=== PATIENT | male | born 1975 | race American Indian/Alaskan Native ===

== ENCOUNTER 2017-09-09 00:54 | Emergency (ER) | payer SELFPAY ==
--- NOTE | 2017-09-09 01:39 | Emergency Department Report ---
HPI - General Chief Complaint: Psych Time Seen by Provider: 09/09/17 01:14 - HPI HPI: 42-year-old male presents to the emergency department from his home via police after the patient started making some suicidal threats, and front of his , including holding a kitchen knife up to his throat. The patient says that he is depressed regarding the of his son which occurred about 5 years ago from a car accident. His son's birthday was a few days ago and every year on his birthday he seems to get depressed. He says that he was trying to find someone to reach out to but was unable to find a way to discuss his feelings and/or brief. He attempted to phone his mother but she did not answer. He says that his and he are having some issues and he couldn't talk about that with her. He does admit to drinking alcohol this evening. Everything boiled up and he pulled out a kitchen knife and held it to his throat stating that he wanted to be with his son. The called 911 and the patient was brought in by police. The patient denies any hallucinations or homicidal ideations. He denies any illicit drug use. He has a past medical history of hypertension. He denies any diagnosed psychiatric conditions. ED Past Medical Hx - Past Medical History Previous Medical History?: No - Surgical History Past Surgical History?: No - Social History Smoking Status: Never Smoker Substance Use Type: Alcohol - Medications Home Medications: Home Medications Medication Instructions Recorded Confirmed Last Taken Type amLODIPine [Norvasc] 10 mg PO DAILY 09/09/17 09/09/17 09/08/17 History ED Review of Systems ROS: Stated complaint: 1013 Other details as noted in HPI Comment: All other systems reviewed and negative Constitutional: denies: chills, fever Eyes: denies: eye pain, eye discharge, vision change ENT: denies: ear pain, throat pain Respiratory: denies: cough, shortness of breath, wheezing Cardiovascular: denies: chest pain, palpitations Gastrointestinal: denies: abdominal pain, nausea, diarrhea Genitourinary: denies: urgency, dysuria Musculoskeletal: denies: back pain, joint swelling, arthralgia Skin: denies: rash, lesions Neurological: denies: headache, weakness, paresthesias Psychiatric: depression, suicidal thoughts. denies: auditory hallucinations, visual hallucinations, homicidal thoughts Physical Exam - Physical Exam Vital Signs: Vital Signs 09/09/17 01:21 Temperature 98.2 F Pulse Rate 98 H Respiratory 18 Rate Blood Pressure 142/98 [Left] O2 Sat by Pulse 98 Oximetry Physical Exam: GENERAL: The patient is well-developed well-nourished. HENT: Normocephalic. Atraumatic. Patient has moist mucous membranes. EYES: Extraocular motions are intact. Pupils equal reactive to light bilaterally. NECK: Supple. Trachea is midline. CHEST/LUNGS: Clear to auscultation. There is no respiratory distress noted. HEART/CARDIOVASCULAR: Regular. There is no tachycardia. There is no murmur. ABDOMEN: Abdomen is soft, nontender. Patient has normal bowel sounds. There is no abdominal distention. SKIN: Skin is warm and dry. NEURO: The patient is awake, alert, and oriented. The patient is cooperative. The patient has no focal neurologic deficits. The patient has normal speech. MUSCULOSKELETAL: There is no tenderness or deformity. There is no limitation range of motion. There is no evidence of acute injury. ED Course Vital Signs 09/09/17 01:21 Temperature 98.2 F Pulse Rate 98 H Respiratory 18 Rate Blood Pressure 142/98 [Left] O2 Sat by Pulse 98 Oximetry ED Medical Decision Making - Lab Data Result diagrams: 09/09/17 01:46 09/09/17 01:46 - Medical Decision Making Patient presented via police after he made suicidal gestures in front of his and held a knife to his throat. The patient admits to some depression surrounding the previous of his firstborn son around the anniversary of the son's birthday. Currently the patient is just saying that he did it as a cry for help and he is just looking for someone to talk to. However secondary to this suicidal gesture, the patient has been made a 1013. The patient admits to some alcohol use and his alcohol level is 0.19 at about 1:30 AM this morning. He does not act currently as if he is acutely intoxicated. His blood alcohol level should be down below the legal limit by about 8 AM and at that time I would consider him medically cleared for psychiatric placement. Pressors labs are unremarkable. Vital signs stable. - Differential Diagnosis depression, bipolar disorder, substance abuse Critical Care Time: No Critical care attestation.: If time is entered above; I have spent that time in minutes in the direct care of this critically ill patient, excluding procedure time. ED Disposition Clinical Impression: Suicidal ideations Depression Qualifiers: Depression Type: unspecified Qualified Code(s): F32.9 - Major depressive disorder, single episode, unspecified Alcohol intoxication Qualifiers: Complication of substance-induced condition: uncomplicated Qualified Code(s): F10.920 - Alcohol use, unspecified with intoxication, uncomplicated Disposition: [id number]/[id number] PSY HOSP/PSY UNIT Is pt being admited?: No Condition: Stable Time of Disposition: 02:51
[2017-09-09 01:52] LABS: Bilirubin,Urine NEG (Negative); Blood,Urine NEG (Negative); Color,Urine Yellow (Yellow); Hyaline Casts,Urine 4 /LPF; Mucus,Urine FEW /HPF; Protein,Urine <15 mg/dL mg/dL (Negative); WBC,Urine < 1.0 /HPF (0.0-6.0)
[2017-09-09 01:58] LABS: Amphetamine Screen,Urine PRESUMPTIVE NEGATIVE; Benzodiazepines Screen,Urine PRESUMPTIVE NEGATIVE; Cannabinoid Screen,Urine PRESUMPTIVE NEGATIVE; Cocaine Screen,Urine PRESUMPTIVE NEGATIVE; Methadone Screen,Urine PRESUMPTIVE NEGATIVE; Opiate Screen,Urine PRESUMPTIVE NEGATIVE
[2017-09-09 02:00] LABS: Basophils # (Auto) 0.1 K/mm3 (0.0-0.1); Basophils % (Auto) 0.8 % (0.0-1.8); Eosinophils # (Auto) 0.9 K/mm3 (0.0-0.4); Eosinophils % (Auto) 13.9 % (0.0-4.3); Hematocrit 38.3 % (35.5-45.6); Hemoglobin 12.6 gm/dl (11.8-15.2); Lymphocytes # (Auto) 1.7 K/mm3 (1.2-5.4); Lymphocytes % (Auto) 25.1 % (13.4-35.0); Mean Corpuscular HGB Conc 33 % (32-34); Mean Corpuscular Hemoglobin 29 pg (28-32); Mean Corpuscular Volume 89 fl (84-94); Monocytes # (Auto) 0.6 K/mm3 (0.0-0.8); Monocytes % (Auto) 8.7 % (0.0-7.3); Platelet Count 317 K/mm3 (140-440)
[2017-09-09 02:08] LABS: BUN/Creatinine Ratio 13; Blood Urea Nitrogen 13 mg/dL (9-20); Calcium 9.2 mg/dL (8.4-10.2); Hemolysis Index 4
[2017-09-09] MEDS ORDERED: DUONEB *Not for PRN Use IH ONE ×2 (23:34→23:36)
[2017-09-10] MEDS: NORVASC PO SCH (10:33)
--- NOTE | 2017-09-10 13:54 | Consultation ---
History of Present Illness - Reason for Consult Consult date: 09/10/17 Reason for consult: Mental Health Evaluation Requesting physician: MELANI YEE - Chief Complaint Chief complaint: "I am not suicidal" - History of Present Psychiatric Illness 42-year-old male presents to the emergency department from his home via police after making suicidal threat in front of his . Today the patient is calm and cooperative during the assessment. He stated that he put a knife to his throat prior to his admission to the hospital because he was angry. He stated that he gets "sad and withdrawn" before the anniversary of his son . Per the patient, his son 5 yrs ago. He stated since the of his son, it's getting more difficult to handle. He stated that he want to see a therapist and take medication to help him with his mood. He stated that he wasn't suicidal on admission, but felt like he had to say that to get help. Also, he stated that he don't drink alcohol to get intoxicated as he was on admission. He denies SI/HI's and AVH's. He denies erratic sleep or a poor appetite. He denies recreational drugs use. Medications and Allergies Allergies Allergy/AdvReac Type Severity Reaction Status Date / Time shellfish derived Allergy Swelling Verified 09/09/17 01:16 strawberry Allergy Swelling Verified 09/09/17 01:16 Home Medications Medication Instructions Recorded Confirmed Last Taken Type Albuterol Sulfate [Albuterol 0.63% 0.63 mg IH TID PRN 09/09/17 09/09/17 Unknown History NEBS] Budesonide/Formoterol Fumarate 10.2 gm IH DAILY 09/09/17 09/09/17 Unknown History [Symbicort 160-4.5 Mcg Inhaler] amLODIPine [Norvasc] 10 mg PO DAILY 09/09/17 09/09/17 09/08/17 History Active Meds: Active Medications Amlodipine Besylate (Norvasc) 10 mg PO DAILY DANIELLE Last Admin: 09/10/17 10:33 Dose: 10 mg Past psychiatric history - Past Medical History Past Medical History: No medical history Past Surgical History: No surgical history - past Psychiatric treatment and history psychiatric treatment history: Denies a psy hx and a fam psy hx. - Social History Social history: lives with family Mental Status Exam - Vital signs Last Vital Signs Temp 97.8 F 09/10/17 11:22 Pulse 84 09/10/17 11:22 Resp 16 09/10/17 11:24 BP 142/93 09/10/17 11:22 Pulse Ox 98 09/10/17 11:24 - Exam Narrative exam: MSE: Appearance: calm, cooperative Behavior: regular eye contact Speech: regular rate and tone Mood: "okay" Affect: congruent to mood Thought Process: circumstantial Thought Content: denies SI/HI's and AVH's Motor Activity: sitting up in bed Cognition: A/O x 3 Insight: fair Judgment: variable Results Result Diagrams: 09/09/17 01:46 09/09/17 01:46 All other labs normal. Assessment and Plan Assessment and plan: Impression: MDD. SAD. Alcohol Intoxication on admission. Complicated grieving. Today the patient is calm and cooperative during the assessment. DDx: R/O Alcohol Use DO Recommendation/Plan: Continue 1013 and gather collateral information to help determine proper dispo in 24 hours. Start Zoloft 25 mg PO daily for depression/ SAD. Discussed possible suicidality/medication induced leodan with patient reference Zoloft. Also, discussed therapy for SAD with patient.
[2017-09-10] MEDS ORDERED: NON-FORMULARY (Albuterol Sulfate [Albuterol 0.63% Nebs] 0.63 MG) IH PRN (16:19)
[2017-09-10] MEDS ORDERED: NACL 0.9% NEBU ONE (16:36)
[2017-09-10] MEDS: PROVENTIL IH PRN ×2 (22:15→23:30)
[2017-09-10] MEDS: ZOLOFT PO SCH (22:55)
[2017-09-11] MEDS: PROVENTIL IH PRN ×2 (01:45→07:37)
[2017-09-11] MEDS: ZOLOFT PO SCH (09:57)
[2017-09-11] MEDS: NORVASC PO SCH (09:57)
--- NOTE | 2017-09-11 11:16 | Progress Note ---
Subjective - Reason for Consult Consult date: 09/11/17 Reason for consult: Psychiatry Follow-up - Chief Complaint Chief complaint: "I made a terrible decision" 42-year-old male presents to the emergency department from his home via police after making suicidal threat in front of his . Today the patient is calm and cooperative during the assessment. He stated that his actions prior to being brought to the ER wasn't good. He is adamant that he will not put himself in an unsafe situation again. Per collateral information from his Ora Mariscal at [phone], she stated that this was the first time her has ever threatened to harm himself. She stated that he does "get down on himself" prior to the anniversary of their son's . She stated that he was seeing a "professional" in the past to help him with coping skills. She stated that she will be his support system and they will attend therapy sessions together. She stated that she feel safe for her to return home when discharge. The patient denies SI/HI's and AVH's. He denies any side effects of his medication. Mental Status Exam - Vital signs Last Vital Signs Temp 97.5 F L 09/11/17 09:56 Pulse 80 09/11/17 09:56 Resp 16 09/11/17 09:56 BP 136/101 09/11/17 09:56 Pulse Ox 97 09/11/17 09:56 - Exam Narrative exam: MSE: Appearance: calm, cooperative Behavior: regular eye contact Speech: regular rate and tone Mood: "okay" Affect: congruent to mood Thought Process: linear Thought Content: denies SI/HI's and AVH's Motor Activity: sitting up in bed Cognition: A/O x 3 Insight: appropriate Judgment: appropriate Assessment and Plan Impression: MDD. SAD. Alcohol Intoxication on admission. Complicated grieving. Today the patient is calm and cooperative during the assessment. The patient is no threat to self. DDx: R/O Alcohol Use DO Recommendation/Plan: Rescind 1013. Continue Zoloft 25 mg PO daily for depression /SAD. Discussed possible suicidality/medication induced leodan with patient reference Zoloft. Also, discussed therapy for SAD with patient. Discussed the importance to abstain from alcohol consumption (etoh). Discussed generalized coping skills with the patient. The patient can follow up with [facility] for outpatient psy services.
[2017-09-11 13:28] VITALS: BP 115/75
--- NOTE | 2017-09-11 15:29 | Emergency Department Report ---
Blank Doc - Documentation Documentation: is a 42-year-old gentleman who on the anniversary of his son's does exhibit depressive symptoms. Several days ago patient was seen here for suicidal ideations. Patient's been started on Zoloft by this is psychiatry and patient is no longer exhibiting any suicidal or homicidal ideations. The patient does have a good support system and has an outpatient therapy plan. Patient's contract for safety. 1013 has been rescinded by me at 1530 on 2017. Patient will be discharged home.
== END 2017-09-11 19:19 | disposition home or self-care (01) ==
LOC: ED 00:54 → EEVIPCON 00:54 → ED 09-11 19:19
DX: F32.9 Major depressive disorder, single episode, unspecified (principal); F10.920 Alcohol use, unspecified with intoxication, uncomplicated; Z91.013 Allergy to seafood; Z91.018 Allergy to other foods
CPT/HCPCS: 36415; 80048; 80307; 81001; 85025; 94640; 99284; G0480; 80320

== ENCOUNTER 2018-04-16 08:37 | Emergency (ER) | payer OTHER ==
[2018-04-16] MEDS ORDERED: SUBLIMAZE ONE (09:23)
[2018-04-16] MEDS ORDERED: SUBLIMAZE IV ONE ×2 (09:23→09:46)
[2018-04-16] MEDS ORDERED: DIPRIVAN 10 MG/ML IV ONE (09:46)
--- NOTE | 2018-04-16 09:59 | XRay Report ---
RIGHT SHOULDER, 3 VIEWS: HISTORY: Pain after injury, fall. An anterior, inferior dislocation is identified at the right glenohumeral joint. There are also multiple small bony fragments which appear to arise from the lateral humeral head. Fracture of the glenoid is difficult to exclude on this exam as well. Normal articulation of the a.c. joint. Soft tissue swelling is noted. IMPRESSION: Complex fracture dislocation of the right shoulder as described.
[2018-04-16] MEDS ORDERED: NACL 0.9% 1000 ML 1,000 ML ONE (10:06)
[2018-04-16] MEDS ORDERED: NACL 0.9% 1000 ML 1,000 ML IV ONE (10:08)
--- NOTE | 2018-04-16 10:22 | XRay Report ---
AP AND LATERAL CERVICAL SPINE: History: Neck pain. The vertebral bodies are well mineralized and normal in alignment and vertebral height with well preserved interspace distances. The visualized portions of the posterior elements are normal. IMPRESSION: Cervical spine within normal limits.
--- NOTE | 2018-04-16 11:00 | XRay Report ---
AP CHEST: HISTORY: chest pain AP view of the chest demonstrates a normal mediastinal and cardiac contour with clear lungs and normal bony and soft tissue structures. IMPRESSION: Unremarkable AP chest.
--- NOTE | 2018-04-16 11:01 | XRay Report ---
LEFT SHOULDER, ONE VIEW History: Postreduction film. Findings: The dislocation at the right shoulder has been reduced since earlier today at 0921 hours. There are small bony fragments lateral to the humeral head and inferior to the glenoid. Chip fractures from the lateral humeral head neck region and inferior glenoid are suspected. Consider further evaluation with CT as needed. Impression: Successful reduction of the right shoulder dislocation. Fractures of the lateral humeral head and inferior glenoid are suspected.
--- NOTE | 2018-04-16 14:20 | Emergency Department Report ---
ED Fall HPI - General Chief Complaint: Extremity Injury, Upper Stated Complaint: RT DISLOCATED SHOULDER Time Seen by Provider: 04/16/18 09:34 Source: patient Mode of arrival: Stretcher - History of Present Illness Initial Comments: This is a 43-year-old male who apparently fell down the stairs earlier this morning. Initially complained of right shoulder pain only. He has no apparent dislocation. Initially he denied any pain or additional injury. Later he complained of vague chest discomfort and neck discomfort. He admitted to drinking 324 ounce beers. MD Complaint: fall -: Gradual Fall From: down stairs (#) When Fall Occurred: 1 hour MOUNTER SAXOPHONES Fall Witnessed: yes, by bystander Place Fall Occurred: home Loss of Consciousness: none Prolonged Down Time?: no Symptoms Prior to Fall: none Location: other (right shoulder) Location - Extremities: Right: Shoulder Severity: severe Quality: aching Context: tripped/slipped, alcohol use Associated Symptoms: denies - Related Data Home Medications Medication Instructions Recorded Confirmed Last Taken Albuterol Sulfate [Albuterol 0.63% 0.63 mg IH TID PRN 09/09/17 09/09/17 Unknown NEBS] Budesonide/Formoterol Fumarate 10.2 gm IH DAILY 09/09/17 09/09/17 Unknown [Symbicort 160-4.5 Mcg Inhaler] amLODIPine [Norvasc] 10 mg PO DAILY 09/09/17 09/09/17 09/08/17 Previous Rx's Medication Instructions Recorded Last Taken Type Sertraline [Zoloft] 25 mg PO DAILY #30 tablet 09/11/17 Unknown Rx HYDROcodone/APAP 5-325 [Atlas 1 each PO Q4HR PRN #14 tablet 04/16/18 Unknown Rx 5/325] Allergies Allergy/AdvReac Type Severity Reaction Status Date / Time shellfish derived Allergy Swelling Verified 09/09/17 01:16 strawberry Allergy Swelling Verified 09/09/17 01:16 ED Review of Systems ROS: Stated complaint: RT DISLOCATED SHOULDER Other details as noted in HPI Constitutional: denies: chills, fever Eyes: denies: eye pain, eye discharge, vision change ENT: denies: ear pain, throat pain Respiratory: denies: cough, shortness of breath, wheezing Cardiovascular: denies: chest pain, palpitations Endocrine: no symptoms reported Gastrointestinal: denies: abdominal pain, nausea, diarrhea Genitourinary: denies: urgency, dysuria Musculoskeletal: as per HPI. denies: back pain, joint swelling, arthralgia Skin: denies: rash, lesions Neurological: denies: headache, weakness, paresthesias Psychiatric: denies: anxiety, depression Hematological/Lymphatic: denies: easy bleeding, easy bruising ED Past Medical Hx - Past Medical History Previous Medical History?: Yes Hx Hypertension: Yes Hx Asthma: Yes - Surgical History Past Surgical History?: Yes Additional Surgical History: Nasal surgery 02/2018. jaw surgery - Social History Smoking Status: Former Smoker Substance Use Type: Alcohol - Medications Home Medications: Home Medications Medication Instructions Recorded Confirmed Last Taken Type Albuterol Sulfate [Albuterol 0.63% 0.63 mg IH TID PRN 09/09/17 09/09/17 Unknown History NEBS] Budesonide/Formoterol Fumarate 10.2 gm IH DAILY 09/09/17 09/09/17 Unknown His tory [Symbicort 160-4.5 Mcg Inhaler] amLODIPine [Norvasc] 10 mg PO DAILY 09/09/17 09/09/17 09/08/17 History Sertraline [Zoloft] 25 mg PO DAILY #30 tablet 09/11/17 Unknown Rx HYDROcodone/APAP 5-325 [Atlas 1 each PO Q4HR PRN #14 tablet 04/16/18 Unknown Rx 5/325] ED Physical Exam - General Limitations: No Limitations General appearance: alert, in no apparent distress - Head Head exam: Present: atraumatic, normocephalic - Eye Eye exam: Present: normal appearance. Absent: scleral icterus - ENT ENT exam: Present: mucous membranes moist - Neck Neck exam: Present: normal inspection, other (placed in a rigid cervical collar). Absent: tenderness, meningismus - Respiratory Respiratory exam: Present: normal lung sounds bilaterally. Absent: respiratory distress - Cardiovascular Cardiovascular Exam: Present: regular rate, normal rhythm. Absent: systolic murmur, diastolic murmur, rubs, gallop - GI/Abdominal GI/Abdominal exam: Present: soft, normal bowel sounds. Absent: distended, tenderness, guarding, rebound, rigid - Rectal Rectal exam: Present: deferred - Extremities Exam Extremities exam: Present: other (parent inferior and anterior dislocation of the right humeral head with crepitus, neurovascular exam is intact) - Back Exam Back exam: Present: normal inspection - Neurological Exam Neurological exam: Present: alert, oriented X3, CN II-XII intact. Absent: motor sensory deficit - Psychiatric Psychiatric exam: Present: normal affect, normal mood - Skin Skin exam: Present: warm, dry, intact, normal color. Absent: rash ED Course Vital Signs 04/16/18 04/16/18 04/16/18 08:43 08:45 09:00 Pulse Rate 77 80 85 Pulse Rate [ Intra-Procedure ] Pulse Rate [ Post-Procedure] Pulse Rate [Pre -Procedure] Respiratory 22 14 19 Rate Respiratory Rate [Intra- Procedure] Respiratory Rate [Post- Procedure] Respiratory Rate [Pre- Procedure] Blood Pressure 161/107 155/113 155/113 Blood Pressure [Intra- Procedure] Blood Pressure [Post-Procedure ] Blood Pressure [Pre-Procedure] O2 Sat by Pulse 98 99 96 Oximetry O2 Sat by Pulse Oximetry [ Intra-Procedure ] O2 Sat by Pulse Oximetry [Post -Procedure] O2 Sat by Pulse Oximetry [Pre- Procedure] 04/16/18 04/16/18 04/16/18 09:15 09:24 09:30 Pulse Rate 89 82 Pulse Rate [ Intra-Procedure ] Pulse Rate [ Post-Procedure] Pulse Rate [Pre -Procedure] Respiratory 11 L 20 13 Rate Respiratory Rate [Intra- Procedure] Respiratory Rate [Post- Procedure] Respiratory Rate [Pre- Procedure] Blood Pressure 160/111 160/111 Blood Pressure [Intra- Procedure] Blood Pressure [Post-Procedure ] Blood Pressure [Pre-Procedure] O2 Sat by Pulse 98 98 Oximetry O2 Sat by Pulse Oximetry [ Intra-Procedure ] O2 Sat by Pulse Oximetry [Post -Procedure] O2 Sat by Pulse Oximetry [Pre- Procedure] 04/16/18 04/16/18 04/16/18 09:45 10:00 10:11 Pulse Rate 71 Pulse Rate [ Intra-Procedure ] Pulse Rate [ Post-Procedure] Pulse Rate [Pre 71 -Procedure] Respiratory 14 Rate Respiratory Rate [Intra- Procedure] Respiratory Rate [Post- Procedure] Respiratory 14 Rate [Pre- Procedure] Blood Pressure 150/105 153/109 Blood Pressure [Intra- Procedure] Blood Pressure [Post-Procedure ] Blood Pressure 150/105 [Pre-Procedure] O2 Sat by Pulse 95 Oximetry O2 Sat by Pulse Oximetry [ Intra-Procedure ] O2 Sat by Pulse Oximetry [Post -Procedure] O2 Sat by Pulse 95 Oximetry [Pre- Procedure] 04/16/18 04/16/18 04/16/18 10:12 10:16 10:20 Pulse Rate Pulse Rate [ 83 87 Intra-Procedure ] Pulse Rate [ 85 Post-Procedure] Pulse Rate [Pre -Procedure] Respiratory Rate Respiratory 13 13 Rate [Intra- Procedure] Respiratory 9 L Rate [Post- Procedure] Respiratory Rate [Pre- Procedure] Blood Pressure Blood Pressure 145/94 137/94 [Intra- Procedure] Blood Pressure 145/97 [Post-Procedure ] Blood Pressure [Pre-Procedure] O2 Sat by Pulse Oximetry O2 Sat by Pulse 99 99 Oximetry [ Intra-Procedure ] O2 Sat by Pulse 100 Oximetry [Post -Procedure] O2 Sat by Pulse Oximetry [Pre- Procedure] 04/16/18 04/16/18 04/16/18 10:30 10:45 11:00 Pulse Rate 74 Pulse Rate [ Intra-Procedure ] Pulse Rate [ Post-Procedure] Pulse Rate [Pre -Procedure] Respiratory 14 Rate Respiratory Rate [Intra- Procedure] Respiratory Rate [Post- Procedure] Respiratory Rate [Pre- Procedure] Blood Pressure 146/103 142/106 143/108 Blood Pressure [Intra- Procedure] Blood Pressure [Post-Procedure ] Blood Pressure [Pre-Procedure] O2 Sat by Pulse 100 100 Oximetry O2 Sat by Pulse Oximetry [ Intra-Procedure ] O2 Sat by Pulse Oximetry [Post -Procedure] O2 Sat by Pulse Oximetry [Pre- Procedure] 04/16/18 04/16/18 04/16/18 11:15 11:30 11:45 Pulse Rate 76 80 81 Pulse Rate [ Intra-Procedure ] Pulse Rate [ Post-Procedure] Pulse Rate [Pre -Procedure] Respiratory 14 13 13 Rate Respiratory Rate [Intra- Procedure] Respiratory Rate [Post- Procedure] Respiratory Rate [Pre- Procedure] Blood Pressure 131/89 124/87 123/83 Blood Pressure [Intra- Procedure] Blood Pressure [Post-Procedure ] Blood Pressure [Pre-Procedure] O2 Sat by Pulse 98 94 Oximetry O2 Sat by Pulse Oximetry [ Intra-Procedure ] O2 Sat by Pulse Oximetry [Post -Procedure] O2 Sat by Pulse Oximetry [Pre- Procedure] 04/16/18 04/16/18 04/16/18 12:00 12:15 12:30 Pulse Rate 78 85 80 Pulse Rate [ Intra-Procedure ] Pulse Rate [ Post-Procedure] Pulse Rate [Pre -Procedure] Respiratory 14 15 13 Rate Respiratory Rate [Intra- Procedure] Respiratory Rate [Post- Procedure] Respiratory Rate [Pre- Procedure] Blood Pressure 131/84 135/95 129/90 Blood Pressure [Intra- Procedure] Blood Pressure [Post-Procedure ] Blood Pressure [Pre-Procedure] O2 Sat by Pulse 95 94 Oximetry O2 Sat by Pulse Oximetry [ Intra-Procedure ] O2 Sat by Pulse Oximetry [Post -Procedure] O2 Sat by Pulse Oximetry [Pre- Procedure] 04/16/18 04/16/18 04/16/18 12:45 13:00 13:15 Pulse Rate 77 89 78 Pulse Rate [ Intra-Procedure ] Pulse Rate [ Post-Procedure] Pulse Rate [Pre -Procedure] Respiratory 14 14 14 Rate Respiratory Rate [Intra- Procedure] Respiratory Rate [Post- Procedure] Respiratory Rate [Pre- Procedure] Blood Pressure 120/85 137/97 145/90 Blood Pressure [Intra- Procedure] Blood Pressure [Post-Procedure ] Blood Pressure [Pre-Procedure] O2 Sat by Pulse 96 97 Oximetry O2 Sat by Pulse Oximetry [ Intra-Procedure ] O2 Sat by Pulse Oximetry [Post -Procedure] O2 Sat by Pulse Oximetry [Pre- Procedure] - Reevaluation(s) Reevaluation #1: She was given analgesia with fentanyl. He was given conscious sedation with p ropofol. His shoulder was successfully reduced. Distraction technique. His pulse oximetry and CO2 remained within normal limits. Procedure was well- tolerated. 04/16/18 14:20 - Moderate Sedation Indications: fracture/dislocation redu ASA Class: I Mallampati Airway Score: 2 Time of Last PO Intake: 02:00 Fentanyl: IV IV Propofol Dose (mgs): 60 (20+20+20) Complications: none Interventions: oxygen applied (prior to procedure) Patient Tolerated Procedure: well - Orthopedic Joint Reduction Joint #1 Consent Obtained: verbal consent Time Out Performed: No Side: right Joint Reduction Location: shoulder Analgesia: moderate sedation Shoulder Technique Used (if applicable): traction/counter-traction Technique Used: traction/counter-traction Post-Reduction Neuro Exam: intact Post-Reduction Vascular Exam: intact Post Reduction X-Ray Obtained: Yes Post Reduction X-Ray Results: reduced (fracture pre-and post reduction seen) Splint Applied: Yes (shoulder sling) Patient Tolerated Procedure: well ED Medical Decision Making - Lab Data Result diagrams: 04/16/18 14:19 04/16/18 14:19 Laboratory Results - last 24 hr 04/16/18 04/16/18 14:19 14:19 WBC 5.3 RBC 4.04 Hgb 11.7 L Hct 35.3 L MCV 87 MCH 29 MCHC 33 RDW 14.7 Plt Count 299 Lymph % (Auto) 36.9 H Hudson % (Auto) 6.9 Eos % (Auto) 1.9 Baso % (Auto) Rate Manager Lymph # 2.0 Baso # 0.1 Seg Neutrophils % 53.3 Seg Neutrophils # 2.8 Sodium 141 Potassium 3.8 Chloride 103.2 Carbon Dioxide 22 Anion Gap 20 BUN 7 L Creatinine 0.6 L Estimated GFR > 60 BUN/Creatinine Ratio 12 Glucose 92 Calcium 8.1 L Magnesium 2.00 Total Bilirubin 0.30 Direct Bilirubin < 0.2 AST 26 ALT 15 Alkaline Phosphatase 85 Total Protein 7.0 Albumin 4.1 Albumin/Globulin Ratio 1.4 - Radiology Data interpreted by me: An anterior, inferior dislocation is identified at the right glenohumeral joint. There are also multiple small bony fragments which appear to arise from the lateral humeral head. Fracture of the glenoid is difficult to exclude on this exam as well. Normal articulation of the a.c. joint. Soft tissue swelling is noted. The dislocation at the right shoulder has been reduced since earlier today at 0921 hours. There are small bony fragments lateral to the humeral head and inferior to the glenoid. Chip fractures from the lateral humeral head neck region and inferior glenoid are suspected. Consider further evaluation with CT as needed. Critical care attestation.: If time is entered above; I have spent that time in minutes in the direct care o f this critically ill patient, excluding procedure time. ED Disposition Clinical Impression: Fracture dislocation of right shoulder joint Qualifiers: Encounter type: initial encounter Fracture type: closed Qualified Code(s): S42.91XA - Fracture of right shoulder girdle, part unspecified, initial encounter for closed fracture Disposition: -01 TO HOME OR SELFCARE Is pt being admited?: No Does the pt Need Aspirin: No Condition: Stable Instructions: Shoulder Dislocation (ED), Scapular Fracture (ED) Additional Instructions: Rest shoulder splint. Do not drink alcohol with pain medicine. This can lead to additional injuries due to fall risk. Follow-up with orthopedist. Return any acute change or problem. Prescriptions: HYDROcodone/APAP 5-325 [Atlas 5/325] 1 each PO Q4HR PRN #14 tablet PRN Reason: Pain Referrals: YESIKA OBRIEN MD [Primary Care Provider] - 3-5 Days KAIN SANDERS MD [Staff Physician] - 2-3 Days Time of Disposition: 15:49
[2018-04-16 14:44] LABS: Basophils # (Auto) 0.1 K/mm3 (0.0-0.1); Eosinophils % (Auto) 1.9 % (0.0-4.3); Hematocrit 35.3 % (35.5-45.6); Hemoglobin 11.7 gm/dl (11.8-15.2); Lymphocytes % (Auto) 36.9 % (13.4-35.0); Mean Corpuscular HGB Conc 33 % (32-34); Mean Corpuscular Volume 87 fl (84-94); Monocytes % (Auto) 6.9 % (0.0-7.3); Platelet Count 299 K/mm3 (140-440); Red Blood Count 4.04 M/mm3 (3.65-5.03); Red Cell Distribution Width 14.7 % (13.2-15.2)
[2018-04-16 14:59] LABS: Alanine Aminotransferase 15 units/L (7-56); Albumin 4.1 g/dL (3.9-5); BUN/Creatinine Ratio 12; Blood Urea Nitrogen 7 mg/dL (9-20); Calcium 8.1 mg/dL (8.4-10.2); Hemolysis Index 11
[2018-04-16 15:00] LABS: Bilirubin,Direct < 0.2 mg/dL (0-0.2)
[2018-04-16 16:18] VITALS: BP 149/107
== END 2018-04-16 16:20 | disposition home or self-care (01) ==
LOC: ED 08:37
DX: S42.91XA Fracture of right shoulder girdle, part unspecified, initial encounter for closed fracture (principal); I10 Essential (primary) hypertension; J45.909 Unspecified asthma, uncomplicated; Z87.891 Personal history of nicotine dependence; Z91.013 Allergy to seafood; Z91.018 Allergy to other foods; W10.8XXA Fall (on) (from) other stairs and steps, initial encounter; Y93.89 Activity, other specified; Y92.098 Other place in other non-institutional residence as the place of occurrence of the external cause; Y99.8 Other external cause status
CPT/HCPCS: 23650; 36415; 71045; 72040; 73020; 73030; 80048; 80076; 83735; 85025; 96374; 99285; J2704; J3010; J7030

== ENCOUNTER 2018-11-13 21:14 | Inpatient (IN) | payer SELFPAY ==
[2018-11-13] MEDS ORDERED: ETOMIDATE 20 MG/10 ML INJ IV ONE (21:35)
[2018-11-13] MEDS ORDERED: ROCURONIUM 50 MG/5 ML INJ IV ONE (21:35)
[2018-11-13] MEDS ORDERED: CEFEPIME/NS 2 GM/100 ML 2 GM/100 ML BAG IV ONE (21:36)
--- NOTE | 2018-11-13 21:37 | Emergency Department Report ---
ED Shortness of Breath HPI - General Stated Complaint: GEORGINA Time Seen by Provider: 11/13/18 21:14 Source: patient, EMS Mode of arrival: Stretcher Limitations: No Limitations - History of Present Illness Initial Comments: Patient is a 43-year-old male that presents emergency room with complaints of shortness of breath and difficulty breathing. Patient is currently on EMS BiPAP. Patient has been given Medrol, albuterol 10, magnesium 2 g. Patient is still having significant work to breathe. Patient states his shortness of breath is not improving. Patient states that he is taken 10 nebulizer treatments and use 5 for albuterol inhalers today. Patient states he's had a cough for 5 days and is now worsening. Patient states nothing is working. Patient states his shortness of breath is worse with exertion and better with rest. MD Complaint: shortness of breath, cough Severity: severe Consistency: constant Improves With: rest Worsens With: exertion Known History Of: asthma Treatments Prior to Arrival: oxygen, bronchodilator, other - Related Data Home Medications Medication Instructions Recorded Confirmed Last Taken Albuterol Sulfate [Albuterol 0.63% 0.63 mg IH TID PRN 09/09/17 09/09/17 Unknown NEBS] Budesonide/Formoterol Fumarate 10.2 gm IH DAILY 09/09/17 09/09/17 Unknown [Symbicort 160-4.5 Mcg Inhaler] amLODIPine [Norvasc] 10 mg PO DAILY 09/09/17 09/09/17 09/08/17 Previous Rx's Medication Instructions Recorded Last Taken Type Sertraline [Zoloft] 25 mg PO DAILY #30 tablet 09/11/17 Unknown Rx HYDROcodone/APAP 5-325 [Salters 1 each PO Q4HR PRN #14 tablet 04/16/18 Unknown Rx 5/325] Allergies Allergy/AdvReac Type Severity Reaction Status Date / Time shellfish derived Allergy Swelling Verified 09/09/17 01:16 strawberry Allergy Swelling Verified 09/09/17 01:16 ED Review of Systems ROS: Stated complaint: GEORGINA Other details as noted in HPI Constitutional: denies: chills, fever Eyes: denies: eye pain, eye discharge, vision change ENT: denies: ear pain, throat pain Respiratory: cough, orthopnea, shortness of breath, SOB with exertion, SOB at rest, wheezing Cardiovascular: denies: chest pain, palpitations Endocrine: no symptoms reported Gastrointestinal: denies: abdominal pain, nausea, diarrhea Genitourinary: denies: urgency, dysuria Musculoskeletal: denies: back pain, joint swelling, arthralgia Skin: denies: rash, lesions Neurological: denies: headache, weakness, paresthesias Psychiatric: denies: anxiety, depression Hematological/Lymphatic: denies: easy bleeding, easy bruising ED Past Medical Hx - Past Medical History Previous Medical History?: Yes Hx Hypertension: Yes Hx Asthma: Yes - Surgical History Past Surgical History?: Yes Additional Surgical History: Nasal surgery 02/2018. jaw surgery - Family History Family history: no significant - Social History Smoking Status: Former Smoker Substance Use Type: Alcohol - Medications Home Medications: Home Medications Medication Instructions Recorded Confirmed Last Taken Type Albuterol Sulfate [Albuterol 0.63% 0.63 mg IH TID PRN 09/09/17 09/09/17 Unknown History NEBS] Budesonide/Formoterol Fumarate 10.2 gm IH DAILY 09/09/17 09/09/17 Unknown History [Symbicort 160-4.5 Mcg Inhaler] amLODIPine [Norvasc] 10 mg PO DAILY 09/09/17 09/09/17 09/08/17 History Sertraline [Zoloft] 25 mg PO DAILY #30 tablet 09/11/17 Unknown Rx HYDROcodone/APAP 5-325 [Salters 1 each PO Q4HR PRN #14 tablet 04/16/18 Unknown Rx 5/325] ED Physical Exam - General Limitations: No Limitations General appearance: alert, appears intoxicated, in distress - Head Head exam: Present: atraumatic, normocephalic - Eye Eye exam: Present: normal appearance, PERRL Pupils: Present: normal accommodation - ENT ENT exam: Present: mucous membranes dry - Neck Neck exam: Present: normal inspection - Respiratory Respiratory exam: Present: normal lung sounds bilaterally, respiratory distress, wheezes, rhonchi, chest wall tenderness, accessory muscle use, decreased breath sounds - Cardiovascular Cardiovascular Exam: Present: regular rate, normal rhythm. Absent: systolic murmur, diastolic murmur, rubs, gallop - GI/Abdominal GI/Abdominal exam: Present: soft, normal bowel sounds - Rectal Rectal exam: Present: deferred - Extremities Exam Extremities exam: Present: normal inspection - Back Exam Back exam: Present: normal inspection - Neurological Exam Neurological exam: Present: alert, oriented X3 - Skin Skin exam: Present: warm, dry, normal color, diaphoretic. Absent: rash ED Course Vital Signs 11/13/18 11/13/18 11/13/18 17:31 17:46 18:00 Temperature Pulse Rate Respiratory Rate Respiratory Rate [Anterior Bilateral Throughout] Blood Pressure 175/102 175/102 192/115 Blood Pressure [Right] O2 Sat by Pulse 99 100 100 Oximetry 11/13/18 11/13/18 11/13/18 18:16 18:30 18:46 Temperature Pulse Rate Respiratory Rate Respiratory Rate [Anterior Bilateral Throughout] Blood Pressure 192/115 178/111 178/111 Blood Pressure [Right] O2 Sat by Pulse 100 100 100 Oximetry 11/13/18 11/13/18 11/13/18 19:01 19:16 19:30 Temperature Pulse Rate Respiratory Rate Respiratory Rate [Anterior Bilateral Throughout] Blood Pressure 139/85 130/80 122/73 Blood Pressure [Right] O2 Sat by Pulse 100 100 100 Oximetry 11/13/18 11/13/18 11/13/18 19:46 20:00 21:15 Temperature 98.1 F Pulse Rate 105 H Respiratory 35 H Rate Respiratory Rate [Anterior Bilateral Throughout] Blood Pressure 129/80 132/85 148/94 Blood Pressure 148/94 [Right] O2 Sat by Pulse 100 100 100 Oximetry 11/13/18 11/13/18 11/13/18 21:18 21:30 21:46 Temperature Pulse Rate 115 H 97 H Respiratory 14 20 Rate Respiratory Rate [Anterior Bilateral Throughout] Blood Pressure 143/90 148/94 186/145 Blood Pressure [Right] O2 Sat by Pulse 100 100 100 Oximetry 11/13/18 11/13/18 11/13/18 22:00 22:16 22:30 Temperature Pulse Rate 105 H 122 H 114 H Respiratory 25 H 23 27 H Rate Respiratory Rate [Anterior Bilateral Throughout] Blood Pressure 220/152 149/96 113/77 Blood Pressure [Right] O2 Sat by Pulse 100 100 Oximetry 11/13/18 11/13/18 11/13/18 22:45 22:53 23:00 Temperature Pulse Rate 99 H 119 H 99 H Respiratory 21 20 Rate Respiratory Rate [Anterior Bilateral Throughout] Blood Pressure 119/86 216/153 125/82 Blood Pressure [Right] O2 Sat by Pulse 100 100 100 Oximetry 11/13/18 11/13/18 11/14/18 23:15 23:30 00:02 Temperature Pulse Rate 97 H 113 H Respiratory 19 38 H Rate Respiratory 20 Rate [Anterior Bilateral Throughout] Blood Pressure 112/72 120/76 Blood Pressure [Right] O2 Sat by Pulse 100 95 Oximetry - Reevaluation(s) Reevaluation #1: Initial evaluation done. Patient will be intubated due to his increased work to breathe. Patient is are he had multiple medications with no relief Patient is hypoxic. See procedure note for intubation. 11/13/18 21:14 Reevaluation #2: Patient intubated and patient's sat is better. Patient's resting in bed. 11/13/18 21:40 Reevaluation #3: Patient will be admitted to the hospitalist service. 11/13/18 23:32 - Consultations Consultation #1: Hospitalist consult for admission. Hospitalist to admit patient. 11/13/18 23:32 - Intubation Time Out Performed: Yes Sedative: Etomidate Paralytic: Rocuronium Laryngoscope: fiberoptic video scope Size: 4 Assist Device Used: fiberoptic device ET Tube Size: 7.5 Tube Secured Depth (cm): 24 Tube Secured Location: teeth Tube Placement Confirmation: visualized tube passing t, equal breath sounds bilat, no breath sounds over epi, confirmation by capnometr Patient Tolerated Procedure: well, no complications Intubation Complications: none ED Medical Decision Making - Lab Data Result diagrams: 11/13/18 21:30 11/13/18 21:30 - EKG Data -: EKG Interpreted by Me EKG shows normal: sinus rhythm, axis, intervals, QRS complexes, ST-T waves Rate: tachycardia - EKG Data Interpretation: LVH - Radiology Data Radiology results: report reviewed interpreted by me: X-ray shows good ET tube placement. CHEST 1 VIEW, 11/13/2018 10:00 PM CLINICAL INFORMATION/INDICATION: Shortness of breath for 5 days COMPARISON: Chest radiograph, 04/16/2018 FINDINGS: SUPPORT DEVICES: Endotracheal tube is present with distal tip approximately 4 cm above the level of the krzysztof. An esophagogastric tube has also been placed with distal tip and sidehole overlying the stomach. HEART: The cardiac silhouette is normal in size. LUNGS/PLEURA: There is no focal airspace disease, significant pleural effusion or pneumothorax. ADDITIONAL FINDINGS: No additional acute findings. IMPRESSION: 1. Placement of endotracheal tube and esophagogastric tube as above. - Medical Decision Making Patient is a 43-year-old male that presents emergency room for status asthmaticus and hypoxia and respiratory distress. Patient had multiple medications prior to arrival with no relief. Patient's initial evaluation showed diaphoresis with increased work of breathing and hypoxia respiratory distress. Patient was immediately intubated. Patient x-ray shows good ET tube placement. Patient placed on Ativan drip and propofol drip for sedation. Patient given antibiotics mutely. Patient given a breathing treatment. Patient's labs unremarkable except for respiratory acidosis, lactic acidosis, elevated CK. Patient given fluids in the ER. Patient admitted to the hospitalist service and into the ICU. - Differential Diagnosis status asthmaticus. Hypoxia. Respiratory failure. Critical Care Time: Yes Critical care attestation.: If time is entered above; I have spent that time in minutes in the direct care of this critically ill patient, excluding procedure time. Critical Care Time: 45 minutes ED Disposition Clinical Impression: SOB (shortness of breath), Respiratory distress, Hypoxia, Respiratory acidosis, Lactic acid acidosis Status asthmaticus Qualifiers: Asthma severity: severe Asthma persistence: persistent Qualified Code(s): J45.52 - Severe persistent asthma with status asthmaticus Respiratory failure Qualifiers: Chronicity: acute Respiratory failure complication: hypoxia Qualified Code(s): J96.01 - Acute respiratory failure with hypoxia Disposition: 09 OP ADMIT IP TO THIS HOSP Is pt being admited?: Yes Does the pt Need Aspirin: No Condition: Critical Time of Disposition: 23:33
[2018-11-13] MEDS ORDERED: SODIUM CHLORIDE 0.9% 1000 ML 1,000 ML IV ONE (21:40)
[2018-11-13 21:48] LABS: Basophils # (Auto) 0.2 K/mm3 (0.0-0.1); Basophils % (Auto) 2.3 % (0.0-1.8); Eosinophils # (Auto) 0.7 K/mm3 (0.0-0.4); Eosinophils % (Auto) 8.2 % (0.0-4.3); Hematocrit 41.2 % (35.5-45.6); Hemoglobin 13.8 gm/dl (11.8-15.2); Lymphocytes # (Auto) 1.6 K/mm3 (1.2-5.4); Lymphocytes % (Auto) 18.5 % (13.4-35.0); Mean Corpuscular HGB Conc 34 % (32-34); Mean Corpuscular Volume 90 fl (84-94); Monocytes # (Auto) 0.4 K/mm3 (0.0-0.8); Monocytes % (Auto) 4.2 % (0.0-7.3); Platelet Count 335 K/mm3 (140-440); Red Cell Distribution Width 14.3 % (13.2-15.2)
[2018-11-13 22:00] LABS: Creatine Kinase MB 3.1 ng/mL (0.0-4.0)
[2018-11-13] MEDS ORDERED: LORazepam 100 MG in SODIUM CHLORIDE 0.9% 50 ML, EMPTY BAG 0 ML IV SCH (22:00)
[2018-11-13 22:01] LABS: Alanine Aminotransferase 18 units/L (7-56); Albumin 4.9 g/dL (3.9-5); BUN/Creatinine Ratio 9; Blood Urea Nitrogen 8 mg/dL (9-20); Hemolysis Index 5
[2018-11-13] MEDS ORDERED: PROPOFOL 1,000 MG/100 ML BOTTLE IV ONE (22:10)
[2018-11-13] MEDS: PROPOFOL 1,000 MG/100 ML BOTTLE IV SCH (22:15)
[2018-11-13] MEDS ORDERED: MIDAZOLAM 5 MG/5 ML INJ MDV IV ONE (22:22)
[2018-11-13] MEDS ORDERED: THIAMINE 100 MG, FOLIC ACID 1 MG, MULTIPLE VITAMIN INJ, ADULT 10 ML in SODIUM CHLORIDE ... IV ONE (22:22)
--- NOTE | 2018-11-13 22:45 | XRay Report ---
CHEST 1 VIEW, 11/13/2018 10:00 PM CLINICAL INFORMATION/INDICATION: Shortness of breath for 5 days COMPARISON: Chest radiograph, 04/16/2018 FINDINGS: SUPPORT DEVICES: Endotracheal tube is present with distal tip approximately 4 cm above the level of t he krzysztof. An esophagogastric tube has also been placed with distal tip and sidehole overlying the st omach. HEART: The cardiac silhouette is normal in size. LUNGS/PLEURA: There is no focal airspace disease, significant pleural effusion or pneumothorax. ADDITIONAL FINDINGS: No additional acute findings. IMPRESSION: 1. Placement of endotracheal tube and esophagogastric tube as above. Signer Name: Hemalatha Roca MD Signed: 11/13/2018 10:40 PM Workstation Name: [id number]
[2018-11-13 23:02] LABS: Bilirubin,Urine NEG (Negative); Blood,Urine SM (Negative); Color,Urine Straw (Yellow); Protein,Urine <15 mg/dL mg/dL (Negative); Urobilinogen,Urine < 2.0 mg/dL (<2.0)
[2018-11-13 23:36] LABS: Amphetamine Screen,Urine PRESUMPTIVE NEGATIVE; Benzodiazepines Screen,Urine PRESUMPTIVE NEGATIVE; Cannabinoid Screen,Urine PRESUMPTIVE NEGATIVE; Cocaine Screen,Urine PRESUMPTIVE NEGATIVE; Methadone Screen,Urine PRESUMPTIVE NEGATIVE; Opiate Screen,Urine PRESUMPTIVE NEGATIVE
[2018-11-13] MEDS ORDERED: IPRATROPIUM/ALBUTEROL SULFATE 3 ML AMPUL.NEB IH ONE (23:36)
[2018-11-14] MEDS ORDERED: SODIUM CHLORIDE 0.9% 1000 ML 1,000 ML IV ONE ×2 (01:03→10:00)
[2018-11-14] MEDS ORDERED: ONDANSETRON 4 MG/2 ML INJ IV PRN (01:17)
[2018-11-14] MEDS ORDERED: methylPREDNISolone Sod Succinate 125 MG/2 ML INJ ONE (02:24)
[2018-11-14] MEDS: methylPREDNISolone Sod Succinate 125 MG/2 ML INJ IV SCH ×3 (02:24→18:02)
[2018-11-14] MEDS ORDERED: SODIUM CHLORIDE 0.9% 1000 ML 1,000 ML ONE (02:24)
[2018-11-14] MEDS ORDERED: MINERAL OIL/PETROLATUM, WHITE OPHTH OINT 3.5 GM OU PRN (02:24)
[2018-11-14] MEDS ORDERED: LIP THERAPY VASELINE TP PRN (02:24)
[2018-11-14 02:26] LABS: Creatine Kinase MB 2.8 ng/mL (0.0-4.0)
[2018-11-14] MEDS: IPRATROPIUM/ALBUTEROL SULFATE 3 ML AMPUL.NEB IH SCH ×2 (03:38→08:27)
[2018-11-14 04:00] LABS: Hematocrit 36.4 % (35.5-45.6); Mean Corpuscular HGB Conc 33 % (32-34); Mean Corpuscular Volume 91 fl (84-94); Platelet Count 284 K/mm3 (140-440); Red Blood Count 3.99 M/mm3 (3.65-5.03); Red Cell Distribution Width 14.3 % (13.2-15.2)
[2018-11-14 04:16] LABS: BUN/Creatinine Ratio 14; Blood Urea Nitrogen 13 mg/dL (9-20); Hemolysis Index 1
--- NOTE | 2018-11-14 05:35 | History and Physical Report ---
History of Present Illness Date of examination: 11/14/18 Date of admission: 11/14/18 01:17 History of present illness: 43-year-old man with a history of hypertension, asthma comes emergency room with complaints of shortness of breath. He was placed on BiPAP, given steroids, breathing treatment and magnesium but his symptoms did not improve, he was intubated in the emergency room, review of system is unobtainable PAST MEDICAL HISTORY:hypertension, asthma PAST SURGICAL HISTORY:Unknown FAMILY HISTORY:Unknown SOCIAL HISTORY:Unknown Medications and Allergies Allergies Allergy/AdvReac Type Severity Reaction Status Date / Time shellfish derived Allergy Swelling Verified 09/09/17 01:16 strawberry Allergy Swelling Verified 09/09/17 01:16 Home Medications Medication Instructions Recorded Confirmed Last Taken Type amLODIPine [Norvasc] 10 mg PO DAILY 09/09/17 11/18/18 09/08/17 History Albuterol Sulfate [Albuterol 0.63% 0.63 mg IH TID PRN #30 11/21/18 Unknown Rx NEBS] Budesonide/Formoterol Fumarate 10.2 gm IH DAILY #60 11/21/18 Unknown Rx [Symbicort 160-4.5 Mcg Inhaler] HYDROcodone/APAP 5-325 [[place] 1 each PO Q4HR PRN #14 tablet 11/21/18 Unknown Rx 5-325 mg TAB] Multivitamin Tab [Multiple Vitamin 1 each PO QDAY #30 tablet 11/21/18 Unknown Rx TAB (Theragran)] Sertraline [Zoloft] 25 mg PO DAILY #30 tablet 11/21/18 Unknown Rx Thiamine [Vitamin B-1] 100 mg PO QDAY #30 tablet 11/21/18 Unknown Rx predniSONE [Deltasone] 10 mg PO QDAY #7 tablet 11/21/18 Unknown Rx Active Meds: Active Medications Acetaminophen (Tylenol) 650 mg PO Q4H PRN PRN Reason: Pain MILD(1-3)/Fever >100.5/HENRY Albuterol/Ipratropium (Duoneb *Not For Prn Use*) 1 ampul IH Q6HRT [facility] Last Admin: 11/14/18 03:38 Dose: Not Given Documented by: Enoxaparin Sodium (Lovenox) 40 mg SUB-Q QDAY@1000 DANIELLE Hydrophilic Ointment (Vaseline Lip Therapy) 1 applic TP Q2HR PRN PRN Reason: Dry Lips Lorazepam 100 mg/ Sodium Chloride/ Miscellaneous Information 100 mls @ 1 mls/hr IV TITR DANIELLE; Protocol Last Titration: 11/13/18 23:32 Dose: 2 mg/hr, 2 mls/hr Documented by: Propofol (Diprivan 10 Mg/Ml) 1,000 mg in 100 mls @ 1.905 mls/hr IV TITR DANIELLE; Protocol Last Titration: 11/13/18 23:30 Dose: 10 mcg/kg/min, 3.81 mls/hr Documented by: Methylprednisolone Sodium Succinate (Solu-Medrol) 125 mg IV Q6H DANIELLE Last Admin: 11/14/18 02:24 Dose: 125 mg Documented by: Multi-Ingred Cream/Lotion/Oil/Oint (Artificial Tears Ophth Oint) 1 applic OU Q4HR PRN PRN Reason: Dry Eye(s) Ondansetron HCl (Zofran) 4 mg IV Q8H PRN PRN Reason: Nausea And Vomiting Sodium Chloride (Sodium Chloride Flush Syringe 10 Ml) 10 ml IV BID DANIELLE Sodium Chloride (Sodium Chloride Flush Syringe 10 Ml) 10 ml IV PRN PRN PRN Reason: LINE FLUSH Exam - Physical Exam Narrative exam: General Apperance: The patient lying in bed no acute distress, intubated HEENT: Normocephalic, atraumatic. Pupils equally round and reactive to light, unable to do extraocular movement intact, and no sclericterus or JVD or thyromegaly or nodule. Neck supple, no carotid bruit, mucous membranes moist, ET tube in place Heart: S1-S2, regular is rhythm Lungs:wheezing bilaterally, breathing comfortable Abdomen: Positive bowel sounds, soft, nontender, nondistended, no organomegaly Extremities: No edema cyanosis clubbing Skin: no rash, nodule, warm and dry Neuro: sedated - Constitutional Vitals: Temp Pulse Resp BP Pulse Ox 99.2 F 95 H 20 115/67 98 11/14/18 04:00 11/14/18 04:45 11/14/18 04:30 11/14/18 04:45 11/14/18 04:45 Results - Labs CBC & Chem 7: 11/18/18 04:31 11/21/18 09:10 Labs: Abnormal lab results 11/13/18 11/13/18 11/13/18 Range/Units 21:30 21:30 21:30 Eos % (Auto) 8.2 H (0.0-4.3) % Baso % (Auto) 2.3 H (0.0-1.8) % Eos # 0.7 H (0.0-0.4) K/mm3 Baso # 0.2 H (0.0-0.1) K/mm3 POC ABG pH (7.35-7.45) Carbon Dioxide 16 L (22-30) mmol/L BUN 8 L (9-20) mg/dL Glucose (75-100) mg/dL Lactic Acid (0.7-2.0) mmol/L Calcium (8.4-10.2) mg/dL Total Creatine Kinase 646 H (55-170) units/L Plasma/Serum Alcohol 0.29 H (0-0.07) % 11/13/18 11/13/18 11/13/18 Range/Units 21:56 22:48 23:22 Eos % (Auto) (0.0-4.3) % Baso % (Auto) (0.0-1.8) % Eos # (0.0-0.4) K/mm3 Baso # (0.0-0.1) K/mm3 POC ABG pH 7.312 L (7.35-7.45) Carbon Dioxide (22-30) mmol/L BUN (9-20) mg/dL Glucose (75-100) mg/dL Lactic Acid 3.70 H* 4.30 H* (0.7-2.0) mmol/L Calcium (8.4-10.2) mg/dL Total Creatine Kinase (55-170) units/L Plasma/Serum Alcohol (0-0.07) % 11/13/18 11/14/18 11/14/18 Range/Units 23:51 00:51 01:49 Eos % (Auto) (0.0-4.3) % Baso % (Auto) (0.0-1.8) % Eos # (0.0-0.4) K/mm3 Baso # (0.0-0.1) K/mm3 POC ABG pH (7.35-7.45) Carbon Dioxide (22-30) mmol/L BUN (9-20) mg/dL Glucose (75-100) mg/dL Lactic Acid 4.10 H* 3.80 H* (0.7-2.0) mmol/L Calcium (8.4-10.2) mg/dL Total Creatine Kinase 623 H (55-170) units/L Plasma/Serum Alcohol (0-0.07) % 11/14/18 11/14/18 11/14/18 Range/Units 01:49 03:41 03:41 Eos % (Auto) (0.0-4.3) % Baso % (Auto) (0.0-1.8) % Eos # (0.0-0.4) K/mm3 Baso # (0.0-0.1) K/mm3 POC ABG pH (7.35-7.45) Carbon Dioxide 16 L (22-30) mmol/L BUN (9-20) mg/dL Glucose 102 H (75-100) mg/dL Lactic Acid 3.40 H* 3.30 H* (0.7-2.0) mmol/L Calcium 7.0 L D (8.4-10.2) mg/dL Total Creatine Kinase (55-170) units/L Plasma/Serum Alcohol (0-0.07) % 11/14/18 Range/Units 05:08 Eos % (Auto) (0.0-4.3) % Baso % (Auto) (0.0-1.8) % Eos # (0.0-0.4) K/mm3 Baso # (0.0-0.1) K/mm3 POC ABG pH 7.266 L (7.35-7.45) Carbon Dioxide (22-30) mmol/L BUN (9-20) mg/dL Glucose (75-100) mg/dL Lactic Acid (0.7-2.0) mmol/L Calcium (8.4-10.2) mg/dL Total Creatine Kinase (55-170) units/L Plasma/Serum Alcohol (0-0.07) % - Imaging and Cardiology EKG: image reviewed Chest x-ray: report reviewed Assessment and Plan Assessment Acute respiratory failure Asthma exacerbation Hypertension Alcohol intoxication Plan Admit to medicine Start high-dose steroids, nebulizer treatments Continue sedation with Ativan and propofol drip Consult critical care] Start emperic antibiotics Monitor, DVT prophylaxis
[2018-11-14 06:11] LABS: Basophils % (Manual) 0 % (0.0-1.8); Eosinophils % (Manual) 0 % (0.0-4.3); Monocytes % (Manual) 0 % (0.0-7.3); Total Cells Counted 100
[2018-11-14 06:12] LABS: Platelet Estimate Consistent w Auto; RBC Morphology Normal
[2018-11-14] MEDS: PROPOFOL 1,000 MG/100 ML BOTTLE IV SCH ×3 (07:50→22:00)
[2018-11-14 08:46] LABS: Creatine Kinase MB 3.2 ng/mL (0.0-4.0)
[2018-11-14] MEDS: cefTRIAXone/NS 1 GM/50 ML 1 GM/50 ML BAG IV SCH (09:38)
[2018-11-14] MEDS: FAMOTIDINE 20 MG/2 ML INJ IV SCH ×2 (09:38→22:00)
[2018-11-14] MEDS: ENOXAPARIN 40 MG/0.4 ML INJ SUB-Q SCH (09:39)
[2018-11-14] MEDS ORDERED: ENOXAPARIN 30 MG/0.3 ML INJ SUB-Q SCH (10:00)
--- NOTE | 2018-11-14 11:23 | Consultation ---
History of Present Illness Consult date: 11/14/18 Requesting physician: GENOVEVA HERNANDEZ Reason for consult: asthma History of present illness: PULMONARY/CCM CONSULT NOTE (full dictation # [id number]) Please see dictated notes for full details Medications and Allergies Allergies Allergy/AdvReac Type Severity Reaction Status Date / Time shellfish derived Allergy Swelling Verified 09/09/17 01:16 strawberry Allergy Swelling Verified 09/09/17 01:16 Home Medications Medication Instructions Recorded Confirmed Last Taken Type Albuterol Sulfate [Albuterol 0.63% 0.63 mg IH TID PRN 09/09/17 09/09/17 Unknown History NEBS] Budesonide/Formoterol Fumarate 10.2 gm IH DAILY 09/09/17 09/09/17 Unknown History [Symbicort 160-4.5 Mcg Inhaler] amLODIPine [Norvasc] 10 mg PO DAILY 09/09/17 09/09/17 09/08/17 History Sertraline [Zoloft] 25 mg PO DAILY #30 tablet 09/11/17 Unknown Rx HYDROcodone/APAP 5-325 [[place] 1 each PO Q4HR PRN #14 tablet 04/16/18 Unknown Rx 5/325] Active Meds: Active Medications Acetaminophen (Tylenol) 650 mg PO Q4H PRN PRN Reason: Pain MILD(1-3)/Fever >100.5/HENRY Albuterol/Ipratropium (Duoneb *Not For Prn Use*) 1 ampul IH Q6HRT [facility] Last Admin: 11/14/18 08:27 Dose: 1 ampul Documented by: Enoxaparin Sodium (Lovenox) 40 mg SUB-Q QDAY@1000 [facility] Last Admin: 11/14/18 09:39 Dose: 40 mg Documented by: Famotidine (Pepcid) 20 mg IV BID [facility] Last Admin: 11/14/18 09:38 Dose: 20 mg Documented by: Hydrophilic Ointment (Vaseline Lip Therapy) 1 applic TP Q2HR PRN PRN Reason: Dry Lips Lorazepam 100 mg/ Sodium Chloride/ Miscellaneous Information 100 mls @ 1 mls/hr IV TITR [facility]; Protocol Last Titration: 11/14/18 07:52 Dose: 3 mg/hr, 3 mls/hr Documented by: Propofol (Diprivan 10 Mg/Ml) 1,000 mg in 100 mls @ 1.905 mls/hr IV TITR DANIELLE; Protocol Last Titration: 11/14/18 11:07 Dose: 35 mcg/kg/min, 13.336 mls/hr Documented by: Ceftriaxone Sodium (Rocephin/Ns 1 Gm/50 Ml) 1 gm in 50 mls @ 100 mls/hr IV Q24H DANIELLE; Protocol Last Admin: 11/14/18 09:38 Dose: 100 mls/hr Documented by: Methylprednisolone Sodium Succinate (Solu-Medrol) 125 mg IV Q6H [facility]ANIELLE Last Admin: 11/14/18 09:39 Dose: 125 mg Documented by: Multi-Ingred Cream/Lotion/Oil/Oint (Artificial Tears Ophth Oint) 1 applic OU Q4HR PRN PRN Reason: Dry Eye(s) Ondansetron HCl (Zofran) 4 mg IV Q8H PRN PRN Reason: Nausea And Vomiting Sodium Chloride (Sodium Chloride Flush Syringe 10 Ml) 10 ml IV BID DANIELLE Last Admin: 11/14/18 11:08 Dose: Not Given Documented by: Sodium Chloride (Sodium Chloride Flush Syringe 10 Ml) 10 ml IV PRN PRN PRN Reason: LINE FLUSH Physical Examination Vital signs: Vital Signs BP Pulse Ox 175/102 99 11/13/18 17:31 11/13/18 17:31 Results - Laboratory Findings CBC and BMP: 11/15/18 04:33 11/15/18 04:33 ABG POC ABG pH 7.266 (7.35-7.45) L 11/14/18 05:08 POC ABG pCO2 35.5 (35-45) 11/14/18 05:08 POC ABG pO2 101 (80-105) 11/14/18 05:08 POC ABG HCO3 16.2 (22-26 mml/L) 11/14/18 05:08 POC ABG Total CO2 17 (23-27mmol/L) 11/14/18 05:08 POC ABG O2 Sat 97 11/14/18 05:08 Abnormal lab findings: Abnormal Labs 11/13/18 11/13/18 11/13/18 21:30 21:30 21:30 Eos % (Auto) 8.2 H Baso % (Auto) 2.3 H Eos # 0.7 H Baso # 0.2 H Seg Neuts % (Manual) Lymphocytes % (Manual) Lymphocytes # (Manual) POC ABG pH Carbon Dioxide 16 L BUN 8 L Glucose Lactic Acid Calcium Total Creatine Kinase 646 H Plasma/Serum Alcohol 0.29 H 11/13/18 11/13/18 11/13/18 21:56 22:48 23:22 Eos % (Auto) Baso % (Auto) Eos # Baso # Seg Neuts % (Manual) Lymphocytes % (Manual) Lymphocytes # (Manual) POC ABG pH 7.312 L Carbon Dioxide BUN Glucose Lactic Acid 3.70 H* 4.30 H* Calcium Total Creatine Kinase Plasma/Serum Alcohol 11/13/18 11/14/18 11/14/18 23:51 00:51 01:49 Eos % (Auto) Baso % (Auto) Eos # Baso # Seg Neuts % (Manual) Lymphocytes % (Manual) Lymphocytes # (Manual) POC ABG pH Carbon Dioxide BUN Glucose Lactic Acid 4.10 H* 3.80 H* Calcium Total Creatine Kinase 623 H Plasma/Serum Alcohol 11/14/18 11/14/18 11/14/18 01:49 03:41 03:41 Eos % (Auto) Baso % (Auto) Eos # Baso # Seg Neuts % (Manual) 96.0 H Lymphocytes % (Manual) 4.0 L Lymphocytes # (Manual) 0.3 L POC ABG pH Carbon Dioxide 16 L BUN Glucose 102 H Lactic Acid 3.40 H* Calcium 7.0 L D Total Creatine Kinase Plasma/Serum Alcohol 11/14/18 11/14/18 11/14/18 03:41 05:08 05:12 Eos % (Auto) Baso % (Auto) Eos # Baso # Seg Neuts % (Manual) Lymphocytes % (Manual) Lymphocytes # (Manual) POC ABG pH 7.266 L Carbon Dioxide BUN Glucose Lactic Acid 3.30 H* 3.10 H* Calcium Total Creatine Kinase Plasma/Serum Alcohol 11/14/18 11/14/18 07:08 07:31 Eos % (Auto) Baso % (Auto) Eos # Baso # Seg Neuts % (Manual) Lymphocytes % (Manual) Lymphocytes # (Manual) POC ABG pH Carbon Dioxide BUN Glucose Lactic Acid 2.90 H* Calcium Total Creatine Kinase 599 H Plasma/Serum Alcohol
[2018-11-14] MEDS ORDERED: fentaNYL 100 MCG/2 ML INJ IV PRN (12:03)
[2018-11-14] MEDS: fentaNYL DRIP Premix 2,000 MCG/100 ML BAG IV SCH (12:48)
[2018-11-14] MEDS ORDERED: DEXTROSE 5% IN WATER 1,000 ML with SODIUM BICARBONATE 150 MEQ IV SCH (13:00)
[2018-11-14] MEDS ORDERED: SODIUM BICARBONATE 325 MG TAB FEEDTUBE PRN ×2 (13:01→13:59)
[2018-11-14] MEDS ORDERED: LIPASE 10,500/PROTEASE 25,000/AMYLASE 43,750 (UNITS) DR CAP FEEDTUBE PRN ×2 (13:01→13:59)
[2018-11-14] MEDS ORDERED: SIMPLE SYRUP 15 ML FEEDTUBE PRN ×4 (13:01→13:59)
[2018-11-14] MEDS: AZITHROMYCIN 500 MG in SODIUM CHLORIDE 0.9% 250ML 250 ML IV SCH (13:19)
[2018-11-14] MEDS: ALBUTEROL 2.5 MG/3 ML NEBU IH SCH ×2 (13:50→19:07)
--- NOTE | 2018-11-14 17:10 | Event Note ---
Date: 11/14/18 Patient seen and examined, Remains on mechanical ventilation. case reviewed with critical care team. Continue current treatment
[2018-11-14] MEDS: ARFORMOTEROL 15 MCG/2 ML NEBU IH SCH (19:07)
[2018-11-14] MEDS: BUDESONIDE 0.5 MG/2 ML NEBU IH SCH (19:07)
[2018-11-14] MEDS ORDERED: ETOMIDATE 20 MG/10 ML INJ IV ONE (21:28)
[2018-11-14] MEDS ORDERED: MIDAZOLAM 5 MG/5 ML INJ MDV IV ONE (21:28)
[2018-11-14] MEDS ORDERED: ROCURONIUM 50 MG/5 ML INJ IV ONE (21:28)
[2018-11-15] MEDS: methylPREDNISolone Sod Succinate 125 MG/2 ML INJ IV SCH ×4 (00:21→18:06)
[2018-11-15] MEDS: ALBUTEROL 2.5 MG/3 ML NEBU IH SCH ×4 (01:57→20:49)
[2018-11-15] MEDS: hydrALAZINE 20 MG/1 ML INJ IV PRN ×2 (02:18→07:44)
--- NOTE | 2018-11-15 03:24 | XRay Report ---
CHEST 1 VIEW 11/15/2018 2:08 AM INDICATION / CLINICAL INFORMATION: follow up respiratory failure. COMPARISON: 11/13/18 FINDINGS: SUPPORT DEVICES: Endotracheal and esophagogastric tubes are unchanged. HEART / MEDIASTINUM: No significant abnormality. LUNGS / PLEURA: No significant pulmonary or pleural abnormality. No pneumothorax. ADDITIONAL FINDINGS: No significant additional findings. IMPRESSION: 1. No significant change. Signer Name: Yue Ho MD Signed: 11/15/2018 3:19 AM Workstation Name: [email or web address]
[2018-11-15 04:58] LABS: Hematocrit 36.6 % (35.5-45.6); Hemoglobin 12.2 gm/dl (11.8-15.2); Mean Corpuscular HGB Conc 33 % (32-34); Mean Corpuscular Volume 90 fl (84-94); Platelet Count 292 K/mm3 (140-440); Red Blood Count 4.07 M/mm3 (3.65-5.03); Red Cell Distribution Width 14.3 % (13.2-15.2)
[2018-11-15 05:12] LABS: BUN/Creatinine Ratio 25; Blood Urea Nitrogen 20 mg/dL (9-20); Calcium 7.9 mg/dL (8.4-10.2); Hemolysis Index 0
[2018-11-15] MEDS: cefTRIAXone/NS 1 GM/50 ML 1 GM/50 ML BAG IV SCH (05:58)
[2018-11-15] MEDS: fentaNYL DRIP Premix 2,000 MCG/100 ML BAG IV SCH ×3 (06:37→17:58)
[2018-11-15] MEDS: BUDESONIDE 0.5 MG/2 ML NEBU IH SCH ×2 (08:09→20:49)
[2018-11-15] MEDS: ARFORMOTEROL 15 MCG/2 ML NEBU IH SCH ×2 (08:09→20:49)
[2018-11-15] MEDS: PROPOFOL 1,000 MG/100 ML BOTTLE IV SCH ×2 (09:43→19:21)
[2018-11-15] MEDS: FAMOTIDINE 20 MG/2 ML INJ IV SCH ×2 (09:47→21:37)
[2018-11-15] MEDS: ENOXAPARIN 40 MG/0.4 ML INJ SUB-Q SCH (09:47)
[2018-11-15] MEDS: AZITHROMYCIN 500 MG in SODIUM CHLORIDE 0.9% 250ML 250 ML IV SCH (12:25)
--- NOTE | 2018-11-15 12:53 | Progress Note ---
Assessment and Plan Acute hypoxemic respiratory failure, on mechanical ventilatory support. Acute asthma attack. History of alcohol abuse. Oropharyngeal dysphagia. Metabolic acidosis. Lactic acidosis. Elevated serum alcohols - begin CIWA protocol with IV Ativan - get Mg & PO4 levels and address - reduce set rate to 12/min - get lactic acid levels and address - discontinue bicarbonate drip - wean supplemental oxygena for target O2 sat's > 90% acutely - Daily SAT and SBT assessment as tolerated - VAP bundle addressed - Lung protective strategies - continue bronchodilators with pulmonary hygiene per RT - Continue with fentanyl, titrate for RASS of 0 to -1 - Maintenance of sleep-wake cycle, avoid delirium - enteral nutritional support at goal rate as tolerated - Accuchecks with glycemic control efren SSI (While critically ill target blood glucose of 140-180 mg/dL; avoid hypoglycemic) - G.I. & VTE prophylaxis - PT/OT/ROM exercises - mobility protocols for pressure ulcer prophylaxis - Monitor hemodynamics closely - continue other care per attending / other area development consultant's - discharge planning ongoing concurrently .... re-evaluate in am & prn CONDITION: CRITICAL PROGNOSIS: GUARDED CODE STATUS: FULL CODE The high probability of a clinically significant, sudden or life-threatening deterioration of the [respiratory, cardiovascular] system(s) required my full and direct attention, intervention and personal management. The aggregate critical care time was [32] minutes without overlap. Time includes spent on; [x] Data Review and interpretation [x] Patient assessment and monitoring of vital signs [x] Documentation [x] Medication orders and management Subjective Date of service: 11/15/18 Principal diagnosis: Ac. hypoxemic resp failure; Ac. asthma exacerbation; EtOH abuse; Dysphagia Interval history: Patient is seen today for: Acute hypoxemic respiratory failure; Acute asthma attack; History of alcohol abuse; Oropharyngeal dysphagia; Metabolic acidosis; Lactic acidosis; Elevated serum alcohol level Seen and examined at bedside; 24hour events reviewed; nursing and respiratory care staff consulted; no adverse overnight events reported to me; resting peacefully in bed; gets agitated during SAT's; possible DT's; acidosis improved; no emesis or overt aspiration and no seizures Objective Vital Signs - 12hr 11/15/18 11/15/18 11/15/18 01:00 01:16 01:30 Temperature Pulse Rate 66 56 L 53 L Pulse Rate [ Anterior Bilateral Throughout] Pulse Rate [ Bilateral Throughout] Respiratory 23 14 15 Rate Respiratory Rate [Anterior Bilateral Throughout] Respiratory Rate [Bilateral Throughout] Blood Pressure 166/121 166/121 166/121 O2 Sat by Pulse 100 100 100 Oximetry 11/15/18 11/15/18 11/15/18 01:46 02:00 02:16 Temperature Pulse Rate 57 L 78 87 Pulse Rate [ Anterior Bilateral Throughout] Pulse Rate [ Bilateral Throughout] Respiratory 16 26 H 17 Rate Respiratory Rate [Anterior Bilateral Throughout] Respiratory Rate [Bilateral Throughout] Blood Pressure 166/121 132/92 166/121 O2 Sat by Pulse 99 99 98 Oximetry 11/15/18 11/15/18 11/15/18 02:18 02:20 02:30 Temperature Pulse Rate 109 H 92 H Pulse Rate [ Anterior Bilateral Throughout] Pulse Rate [ 94 H Bilateral Throughout] Respiratory 21 Rate Respiratory Rate [Anterior Bilateral Throughout] Respiratory 25 H Rate [Bilateral Throughout] Blood Pressure 166/121 166/121 O2 Sat by Pulse 99 Oximetry 11/15/18 11/15/18 11/15/18 02:46 03:00 03:01 Temperature 99.7 F H Pulse Rate 85 106 H Pulse Rate [ Anterior Bilateral Throughout] Pulse Rate [ Bilateral Throughout] Respiratory 25 H 20 Rate Respiratory Rate [Anterior Bilateral Throughout] Respiratory Rate [Bilateral Throughout] Blood Pressure 166/121 159/103 O2 Sat by Pulse 98 97 Oximetry 11/15/18 11/15/18 11/15/18 03:16 03:27 03:30 Temperature Pulse Rate 89 90 97 H Pulse Rate [ Anterior Bilateral Throughout] Pulse Rate [ Bilateral Throughout] Respiratory 25 H 25 H Rate Respiratory Rate [Anterior Bilateral Throughout] Respiratory Rate [Bilateral Throughout] Blood Pressure 159/103 159/103 159/103 O2 Sat by Pulse 99 98 98 Oximetry 11/15/18 11/15/18 11/15/18 03:46 04:00 04:16 Temperature Pulse Rate 87 89 95 H Pulse Rate [ Anterior Bilateral Throughout] Pulse Rate [ Bilateral Throughout] Respiratory 25 H 20 26 H Rate Respiratory Rate [Anterior Bilateral Throughout] Respiratory Rate [Bilateral Throughout] Blood Pressure 159/103 156/114 156/114 O2 Sat by Pulse 98 99 99 Oximetry 11/15/18 11/15/18 11/15/18 04:30 04:46 05:00 Temperature Pulse Rate 82 81 89 Pulse Rate [ Anterior Bilateral Throughout] Pulse Rate [ Bilateral Throughout] Respiratory 25 H 25 H 24 Rate Respiratory Rate [Anterior Bilateral Throughout] Respiratory Rate [Bilateral Throughout] Blood Pressure 156/114 156/114 156/106 O2 Sat by Pulse 99 98 98 Oximetry 11/15/18 11/15/18 11/15/18 05:16 05:30 05:46 Temperature Pulse Rate 109 H 84 75 Pulse Rate [ Anterior Bilateral Throughout] Pulse Rate [ Bilateral Throughout] Respiratory 24 25 H 25 H Rate Respiratory Rate [Anterior Bilateral Throughout] Respiratory Rate [Bilateral Throughout] Blood Pressure 156/106 156/106 156/106 O2 Sat by Pulse 99 98 98 Oximetry 11/15/18 11/15/18 11/15/18 06:00 06:16 06:30 Temperature Pulse Rate 73 70 107 H Pulse Rate [ Anterior Bilateral Throughout] Pulse Rate [ Bilateral Throughout] Respiratory 25 H 25 H 25 H Rate Respiratory Rate [Anterior Bilateral Throughout] Respiratory Rate [Bilateral Throughout] Blood Pressure 156/106 128/86 128/86 O2 Sat by Pulse 98 98 97 Oximetry 11/15/18 11/15/18 11/15/18 06:46 07:00 07:16 Temperature Pulse Rate 109 H 121 H 110 H Pulse Rate [ Anterior Bilateral Throughout] Pulse Rate [ Bilateral Throughout] Respiratory 15 18 21 Rate Respiratory Rate [Anterior Bilateral Throughout] Respiratory Rate [Bilateral Throughout] Blood Pressure 128/86 128/86 172/111 O2 Sat by Pulse 97 97 96 Oximetry 11/15/18 11/15/18 11/15/18 07:30 07:44 07:46 Temperature Pulse Rate 125 H 87 83 Pulse Rate [ Anterior Bilateral Throughout] Pulse Rate [ Bilateral Throughout] Respiratory 21 25 H Rate Respiratory Rate [Anterior Bilateral Throughout] Respiratory Rate [Bilateral Throughout] Blood Pressure 172/111 183/121 183/121 O2 Sat by Pulse 98 Oximetry 11/15/18 11/15/18 11/15/18 08:00 08:05 08:16 Temperature 97.9 F Pulse Rate 100 H 85 84 Pulse Rate [ Anterior Bilateral Throughout] Pulse Rate [ Bilateral Throughout] Respiratory 25 H 25 H Rate Respiratory Rate [Anterior Bilateral Throughout] Respiratory Rate [Bilateral Throughout] Blood Pressure 158/87 158/87 158/87 O2 Sat by Pulse 98 97 97 Oximetry 11/15/18 11/15/18 11/15/18 08:30 08:46 09:00 Temperature Pulse Rate 93 H 77 70 Pulse Rate [ Anterior Bilateral Throughout] Pulse Rate [ Bilateral Throughout] Respiratory 25 H 25 H 25 H Rate Respiratory Rate [Anterior Bilateral Throughout] Respiratory Rate [Bilateral Throughout] Blood Pressure 158/87 158/87 152/84 O2 Sat by Pulse 99 98 98 Oximetry 11/15/18 11/15/18 11/15/18 09:14 09:16 09:30 Temperature Pulse Rate 67 71 Pulse Rate [ 65 Anterior Bilateral Throughout] Pulse Rate [ 69 Bilateral Throughout] Respiratory 25 H 25 H Rate Respiratory 25 H Rate [Anterior Bilateral Throughout] Respiratory 28 H Rate [Bilateral Throughout] Blood Pressure 131/75 123/78 O2 Sat by Pulse 98 98 Oximetry 11/15/18 11/15/18 11/15/18 09:46 10:00 10:16 Temperature Pulse Rate 69 90 103 H Pulse Rate [ Anterior Bilateral Throughout] Pulse Rate [ Bilateral Throughout] Respiratory 25 H 19 24 Rate Respiratory Rate [Anterior Bilateral Throughout] Respiratory Rate [Bilateral Throughout] Blood Pressure 123/78 165/97 165/97 O2 Sat by Pulse 98 99 100 Oximetry 11/15/18 11/15/18 11/15/18 10:30 10:46 11:00 Temperature Pulse Rate 111 H 115 H 74 Pulse Rate [ Anterior Bilateral Throughout] Pulse Rate [ Bilateral Throughout] Respiratory 18 21 25 H Rate Respiratory Rate [Anterior Bilateral Throughout] Respiratory Rate [Bilateral Throughout] Blood Pressure 175/129 175/129 175/129 O2 Sat by Pulse 95 98 98 Oximetry 11/15/18 11/15/18 11/15/18 11:16 11:30 11:46 Temperature Pulse Rate 70 67 66 Pulse Rate [ Anterior Bilateral Throughout] Pulse Rate [ Bilateral Throughout] Respiratory 25 H 25 H 12 Rate Respiratory Rate [Anterior Bilateral Throughout] Respiratory Rate [Bilateral Throughout] Blood Pressure 126/81 121/76 121/76 O2 Sat by Pulse 99 98 97 Oximetry 11/15/18 11/15/18 11/15/18 12:00 12:16 12:30 Temperature 98.2 F Pulse Rate 69 73 70 Pulse Rate [ Anterior Bilateral Throughout] Pulse Rate [ Bilateral Throughout] Respiratory 12 12 12 Rate Respiratory Rate [Anterior Bilateral Throughout] Respiratory Rate [Bilateral Throughout] Blood Pressure 125/74 125/74 124/81 O2 Sat by Pulse 98 98 98 Oximetry 11/15/18 12:46 Temperature Pulse Rate 76 Pulse Rate [ Anterior Bilateral Throughout] Pulse Rate [ Bilateral Throughout] Respiratory 12 Rate Respiratory Rate [Anterior Bilateral Throughout] Respiratory Rate [Bilateral Throughout] Blood Pressure 124/81 O2 Sat by Pulse 97 Oximetry Constitutional: no acute distress, other (middle aged AAM, normocephalic and atraumatic with mildly increased resp effort at rest) Eyes: non-icteric ENT: oropharynx moist, other (ETT 24 cm ALISON) Neck: supple, no lymphadenopathy, no JVD Effort: mildly labored Ascultation: Bilateral: diminished breath sounds, rhonchi (scant) Percussion: Bilateral: not dull Cardiovascular: regular rate and rhythm Gastrointestinal: normoactive bowel sounds, soft, non-tender, non-distended Integumentary: normal Extremities: no cyanosis, no edema, pulses normal, no ischemia or petechiae Neurologic: non-focal exam (grossly), pupils equal and round, CN II-XII normal, motor strength normal and Psychiatric: other (unable to assess re: AMS) CBC and BMP: 11/15/18 04:33 11/15/18 04:33 ABG, PT/INR, D-dimer: ABG POC ABG pH 7.468 (7.35-7.45) H 11/15/18 03:48 POC ABG pCO2 33.5 (35-45) L 11/15/18 03:48 POC ABG pO2 75 (80-105) L 11/15/18 03:48 POC ABG HCO3 24.3 (22-26 mml/L) 11/15/18 03:48 POC ABG Total CO2 25 (23-27mmol/L) 11/15/18 03:48 POC ABG O2 Sat 96 11/15/18 03:48 Abnormal lab findings: Abnormal Labs 11/13/18 11/13/18 11/13/18 21:30 21:30 21:30 Eos % (Auto) 8.2 H Baso % (Auto) 2.3 H Eos # 0.7 H Baso # 0.2 H Seg Neuts % (Manual) Lymphocytes % (Manual) Lymphocytes # (Manual) POC ABG pH POC ABG pCO2 POC ABG pO2 Carbon Dioxide 16 L BUN 8 L Glucose Lactic Acid Calcium Total Creatine Kinase 646 H Plasma/Serum Alcohol 0.29 H 11/13/18 11/13/18 11/13/18 21:56 22:48 23:22 Eos % (Auto) Baso % (Auto) Eos # Baso # Seg Neuts % (Manual) Lymphocytes % (Manual) Lymphocytes # (Manual) POC ABG pH 7.312 L POC ABG pCO2 POC ABG pO2 Carbon Dioxide BUN Glucose Lactic Acid 3.70 H* 4.30 H* Calcium Total Creatine Kinase Plasma/Serum Alcohol 11/13/18 11/14/18 11/14/18 23:51 00:51 01:49 Eos % (Auto) Baso % (Auto) Eos # Baso # Seg Neuts % (Manual) Lymphocytes % (Manual) Lymphocytes # (Manual) POC ABG pH POC ABG pCO2 POC ABG pO2 Carbon Dioxide BUN Glucose Lactic Acid 4.10 H* 3.80 H* Calcium Total Creatine Kinase 623 H Plasma/Serum Alcohol 11/14/18 11/14/18 11/14/18 01:49 03:41 03:41 Eos % (Auto) Baso % (Auto) Eos # Baso # Seg Neuts % (Manual) 96.0 H Lymphocytes % (Manual) 4.0 L Lymphocytes # (Manual) 0.3 L POC ABG pH POC ABG pCO2 POC ABG pO2 Carbon Dioxide 16 L BUN Glucose 102 H Lactic Acid 3.40 H* Calcium 7.0 L D Total Creatine Kinase Plasma/Serum Alcohol 11/14/18 11/14/18 11/14/18 03:41 05:08 05:12 Eos % (Auto) Baso % (Auto) Eos # Baso # Seg Neuts % (Manual) Lymphocytes % (Manual) Lymphocytes # (Manual) POC ABG pH 7.266 L POC ABG pCO2 POC ABG pO2 Carbon Dioxide BUN Glucose Lactic Acid 3.30 H* 3.10 H* Calcium Total Creatine Kinase Plasma/Serum Alcohol 11/14/18 11/14/18 11/14/18 07:08 07:31 15:47 Eos % (Auto) Baso % (Auto) Eos # Baso # Seg Neuts % (Manual) Lymphocytes % (Manual) Lymphocytes # (Manual) POC ABG pH POC ABG pCO2 POC ABG pO2 113 H Carbon Dioxide BUN Glucose Lactic Acid 2.90 H* Calcium Total Creatine Kinase 599 H Plasma/Serum Alcohol 11/15/18 11/15/18 03:48 04:33 Eos % (Auto) Baso % (Auto) Eos # Baso # Seg Neuts % (Manual) Lymphocytes % (Manual) Lymphocytes # (Manual) POC ABG pH 7.468 H POC ABG pCO2 33.5 L POC ABG pO2 75 L Carbon Dioxide BUN Glucose 177 H Lactic Acid Calcium 7.9 L Total Creatine Kinase Plasma/Serum Alcohol Chest x-ray: image reviewed (no acute process; ETT in good position) Allied health notes reviewed: nursing
--- NOTE | 2018-11-15 14:47 | Progress Note ---
Assessment and Plan - Patient Problems (1) Acute respiratory failure with hypoxia Current Visit: Yes Status: Acute Plan to address problem: On Vent Weaning in progress (2) Status asthmaticus Current Visit: Yes Status: Acute Qualifiers: Asthma severity: severe Asthma persistence: persistent Qualified Code(s): J45.52 - Severe persistent asthma with status asthmaticus Plan to address problem: Cont neb treatments IV steroids (3) EtOH dependence Current Visit: Yes Status: Chronic Plan to address problem: Cont Ciwa protocol and IV fluids (4) Delirium Current Visit: Yes Status: Acute (5) Delirium tremens Current Visit: Yes Status: Acute Plan to address problem: Cont CIWA protocol (6) DVT prophylaxis Current Visit: Yes Status: Acute Plan to address problem: On Lovenox and GI prophylaxis Subjective Date of service: 11/15/18 Principal diagnosis: Resp failure and Asthma exacerbation Interval history: S/p intubation secondary to Resp failure and status asthmaticus On vent Agitated occasionally Objective - Constitutional Vitals: Vital Signs - 12hr 11/15/18 11/15/18 11/15/18 03:00 03:01 03:16 Temperature 99.7 F H Pulse Rate 106 H 89 Pulse Rate [ Anterior Bilateral Throughout] Pulse Rate [ Bilateral Throughout] Respiratory 20 25 H Rate Respiratory Rate [Anterior Bilateral Throughout] Respiratory Rate [Bilateral Throughout] Blood Pressure 159/103 159/103 O2 Sat by Pulse 97 99 Oximetry 11/15/18 11/15/18 11/15/18 03:27 03:30 03:46 Temperature Pulse Rate 90 97 H 87 Pulse Rate [ Anterior Bilateral Throughout] Pulse Rate [ Bilateral Throughout] Respiratory 25 H 25 H Rate Respiratory Rate [Anterior Bilateral Throughout] Respiratory Rate [Bilateral Throughout] Blood Pressure 159/103 159/103 159/103 O2 Sat by Pulse 98 98 98 Oximetry 11/15/18 11/15/18 11/15/18 04:00 04:16 04:30 Temperature Pulse Rate 89 95 H 82 Pulse Rate [ Anterior Bilateral Throughout] Pulse Rate [ Bilateral Throughout] Respiratory 20 26 H 25 H Rate Respiratory Rate [Anterior Bilateral Throughout] Respiratory Rate [Bilateral Throughout] Blood Pressure 156/114 156/114 156/114 O2 Sat by Pulse 99 99 99 Oximetry 11/15/18 11/15/18 11/15/18 04:46 05:00 05:16 Temperature Pulse Rate 81 89 109 H Pulse Rate [ Anterior Bilateral Throughout] Pulse Rate [ Bilateral Throughout] Respiratory 25 H 24 24 Rate Respiratory Rate [Anterior Bilateral Throughout] Respiratory Rate [Bilateral Throughout] Blood Pressure 156/114 156/106 156/106 O2 Sat by Pulse 98 98 99 Oximetry 11/15/18 11/15/18 11/15/18 05:30 05:46 06:00 Temperature Pulse Rate 84 75 73 Pulse Rate [ Anterior Bilateral Throughout] Pulse Rate [ Bilateral Throughout] Respiratory 25 H 25 H 25 H Rate Respiratory Rate [Anterior Bilateral Throughout] Respiratory Rate [Bilateral Throughout] Blood Pressure 156/106 156/106 156/106 O2 Sat by Pulse 98 98 98 Oximetry 11/15/18 11/15/18 11/15/18 06:16 06:30 06:46 Temperature Pulse Rate 70 107 H 109 H Pulse Rate [ Anterior Bilateral Throughout] Pulse Rate [ Bilateral Throughout] Respiratory 25 H 25 H 15 Rate Respiratory Rate [Anterior Bilateral Throughout] Respiratory Rate [Bilateral Throughout] Blood Pressure 128/86 128/86 128/86 O2 Sat by Pulse 98 97 97 Oximetry 11/15/18 11/15/18 11/15/18 07:00 07:16 07:30 Temperature Pulse Rate 121 H 110 H 125 H Pulse Rate [ Anterior Bilateral Throughout] Pulse Rate [ Bilateral Throughout] Respiratory 18 21 21 Rate Respiratory Rate [Anterior Bilateral Throughout] Respiratory Rate [Bilateral Throughout] Blood Pressure 128/86 172/111 172/111 O2 Sat by Pulse 97 96 98 Oximetry 11/15/18 11/15/18 11/15/18 07:44 07:46 08:00 Temperature 97.9 F Pulse Rate 87 83 100 H Pulse Rate [ Anterior Bilateral Throughout] Pulse Rate [ Bilateral Throughout] Respiratory 25 H 25 H Rate Respiratory Rate [Anterior Bilateral Throughout] Respiratory Rate [Bilateral Throughout] Blood Pressure 183/121 183/121 158/87 O2 Sat by Pulse 98 Oximetry 11/15/18 11/15/18 11/15/18 08:05 08:16 08:30 Temperature Pulse Rate 85 84 93 H Pulse Rate [ Anterior Bilateral Throughout] Pulse Rate [ Bilateral Throughout] Respiratory 25 H 25 H Rate Respiratory Rate [Anterior Bilateral Throughout] Respiratory Rate [Bilateral Throughout] Blood Pressure 158/87 158/87 158/87 O2 Sat by Pulse 97 97 99 Oximetry 11/15/18 11/15/18 11/15/18 08:46 09:00 09:14 Temperature Pulse Rate 77 70 Pulse Rate [ 65 Anterior Bilateral Throughout] Pulse Rate [ 69 Bilateral Throughout] Respiratory 25 H 25 H Rate Respiratory 25 H Rate [Anterior Bilateral Throughout] Respiratory 28 H Rate [Bilateral Throughout] Blood Pressure 158/87 152/84 O2 Sat by Pulse 98 98 Oximetry 11/15/18 11/15/18 11/15/18 09:16 09:30 09:46 Temperature Pulse Rate 67 71 69 Pulse Rate [ Anterior Bilateral Throughout] Pulse Rate [ Bilateral Throughout] Respiratory 25 H 25 H 25 H Rate Respiratory Rate [Anterior Bilateral Throughout] Respiratory Rate [Bilateral Throughout] Blood Pressure 131/75 123/78 123/78 O2 Sat by Pulse 98 98 98 Oximetry 11/15/18 11/15/18 11/15/18 10:00 10:16 10:30 Temperature Pulse Rate 90 103 H 111 H Pulse Rate [ Anterior Bilateral Throughout] Pulse Rate [ Bilateral Throughout] Respiratory 19 24 18 Rate Respiratory Rate [Anterior Bilateral Throughout] Respiratory Rate [Bilateral Throughout] Blood Pressure 165/97 165/97 175/129 O2 Sat by Pulse 99 100 95 Oximetry 11/15/18 11/15/18 11/15/18 10:46 11:00 11:16 Temperature Pulse Rate 115 H 74 70 Pulse Rate [ Anterior Bilateral Throughout] Pulse Rate [ Bilateral Throughout] Respiratory 21 25 H 25 H Rate Respiratory Rate [Anterior Bilateral Throughout] Respiratory Rate [Bilateral Throughout] Blood Pressure 175/129 175/129 126/81 O2 Sat by Pulse 98 98 99 Oximetry 11/15/18 11/15/18 11/15/18 11:30 11:46 12:00 Temperature 98.2 F Pulse Rate 67 66 69 Pulse Rate [ Anterior Bilateral Throughout] Pulse Rate [ Bilateral Throughout] Respiratory 25 H 12 12 Rate Respiratory Rate [Anterior Bilateral Throughout] Respiratory Rate [Bilateral Throughout] Blood Pressure 121/76 121/76 125/74 O2 Sat by Pulse 98 97 98 Oximetry 11/15/18 11/15/18 11/15/18 12:16 12:30 12:46 Temperature Pulse Rate 73 70 76 Pulse Rate [ Anterior Bilateral Throughout] Pulse Rate [ Bilateral Throughout] Respiratory 12 12 12 Rate Respiratory Rate [Anterior Bilateral Throughout] Respiratory Rate [Bilateral Throughout] Blood Pressure 125/74 124/81 124/81 O2 Sat by Pulse 98 98 97 Oximetry 11/15/18 11/15/18 11/15/18 13:00 13:16 13:30 Temperature Pulse Rate 80 87 94 H Pulse Rate [ Anterior Bilateral Throughout] Pulse Rate [ Bilateral Throughout] Respiratory 13 12 12 Rate Respiratory Rate [Anterior Bilateral Throughout] Respiratory Rate [Bilateral Throughout] Blood Pressure 122/76 122/76 137/88 O2 Sat by Pulse 97 97 98 Oximetry 11/15/18 11/15/18 11/15/18 13:46 14:00 14:16 Temperature Pulse Rate 79 79 78 Pulse Rate [ Anterior Bilateral Throughout] Pulse Rate [ Bilateral Throughout] Respiratory 13 12 13 Rate Respiratory Rate [Anterior Bilateral Throughout] Respiratory Rate [Bilateral Throughout] Blood Pressure 137/88 126/83 126/83 O2 Sat by Pulse 96 97 97 Oximetry 11/15/18 14:30 Temperature Pulse Rate 75 Pulse Rate [ Anterior Bilateral Throughout] Pulse Rate [ Bilateral Throughout] Respiratory 13 Rate Respiratory Rate [Anterior Bilateral Throughout] Respiratory Rate [Bilateral Throughout] Blood Pressure 126/76 O2 Sat by Pulse 97 Oximetry General appearance: Present: mild distress, well-nourished - EENT Eyes: PERRL, EOM intact ENT: hearing intact, clear oral mucosa Ears: bilateral: normal - Neck Neck: supple, normal ROM - Respiratory Respiratory effort: normal Respiratory: bilateral: CTA - Breasts Breasts: normal - Cardiovascular Heart rate: 78 Rhythm: regular Heart Sounds: Present: S1 & S2. Absent: gallop, rub Extremities: no ischemia, pulses intact, No edema, normal color, Full ROM - Gastrointestinal General gastrointestinal: Present: soft, non-tender, non-distended, normal bowel sounds - Genitourinary Male genitourinary: normal - Integumentary Integumentary: clear, warm, dry - Musculoskeletal Musculoskeletal: generalized weakness - Neurologic Neurologic: moves all extremities - Allied health notes Allied health notes reviewed: nursing, case management - Labs CBC & Chem 7: 11/15/18 04:33 11/15/18 04:33 Labs: Abnormal lab results 11/14/18 11/15/18 11/15/18 Range/Units 15:47 03:48 04:33 POC ABG pH 7.468 H (7.35-7.45) POC ABG pCO2 33.5 L (35-45) POC ABG pO2 113 H 75 L (80-105) Glucose 177 H (75-100) mg/dL POC Glucose (70-105) Calcium 7.9 L (8.4-10.2) mg/dL 10/04/19 Range/Units 13:20 POC ABG pH (7.35-7.45) POC ABG pCO2 (35-45) POC ABG pO2 (80-105) Glucose (75-100) mg/dL POC Glucose 150 H (70-105) Calcium (8.4-10.2) mg/dL
--- NOTE | 2018-11-15 16:33 | Consultation ---
PULMONARY CRITICAL CARE CONSULT CONSULTING PHYSICIAN: Dr. Va Tolliver. REASON FOR CONSULTATION: Acute hypoxemic respiratory failure, on mechanical ventilator, acute asthma exacerbation. CHIEF COMPLAINT AND HISTORY OF PRESENT ILLNESS: As follows: The patient is a 43-year-old -[place] male with past medical history significant for a diagnosis of asthma, who presented to the Emergency Room complaining of shortness of breath. He was initially placed on bilevel positive air pressure ventilation therapy, given steroids, magnesium, breathing treatments, shortness of breath did not improve. He stated that he had been using his nebulizer treatments at home. He admitted to dyspnea on exertion. Denied any cough, fevers or chills. At some point in the Emergency Room, he continued to decompensate and the patient was intubated. Post-intubation, he was brought up to the Critical Care Unit where I stopped by to see him. When I stopped by to see him, he was resting peacefully on bed, intubated, still pretty tight, wheezing was getting better. I do not have any history of vomiting or overt aspiration. The patient has tobacco use/abuse history. According to the Emergency Room records, he is described as a former smoker. This really is as much of the history of presentation as I have. PAST MEDICAL HISTORY: Asthma. PAST SURGICAL HISTORY: Unknown. MEDICATIONS: He was on at the time I stopped by to see him, according to the medication administration record included the following: Tylenol 650 mg p.o. q. 4 hours p.r.n. mild pain or fevers. All p.o. meds via the feeding tube, DuoNeb nebulizer treatments nebulized q. 6 hours, Lovenox 40 mg subQ daily, Pepcid 20 mg IV b.i.d., Ativan drip had been going at 3 mg per hour, propofol drip was going at 10 mcg per kilogram per minute, Rocephin 1 gram IV daily, Solu-Medrol 125 mg IV q. 6 hours, Zofran 4 mg IV q. 8 hours p.r.n. nausea and vomiting. ALLERGIES: SHELLFISH, DERIVED PRODUCTS and STRAWBERRIES. Nature of this allergy is unknown. DIET: Well-built gentleman, acute weight loss or gain history is unknown. FAMILY AND SOCIAL HISTORY: Apparently lives in the community, described as a former smoker. There is a reported history of alcohol abuse, illicit drug use, other family history is unknown. REVIEW OF SYSTEMS: Unobtainable secondary to patient's medical and mental condition. PHYSICAL EXAMINATION: VITAL SIGNS: On examination at presentation in the Emergency Room, vital signs, he was afebrile, temperature was 98.1 degrees Fahrenheit with initial pulse of 105, respiratory rate of 35, blood pressure 148/94, O2 sats 100%, inspired oxygen concentration was not recorded. When I stopped by to see him, his O2 sats were 98% that was on assist control mode of respiration rate of 25, I believe tidal volume was about 450, PEEP of 6. GENERAL: Well-built male. Normocephalic, atraumatic, resting in bed with mildly increased respiratory effort at rest. EXAMINATION OF THE HEAD, EYES, EARS, NOSE AND THROAT: He was anicteric, no conjunctival erythema. Oropharynx was moist. ET tube was taped at the lips around 23 cm. No gross jugular venous distention, no thyromegaly. LUNGS: Auscultation of both lung thomas revealed diminished bilateral breath sounds, prolonged expiratory phase, faint expiratory wheezing. HEART: Sounds 1 and 2 are heard. They were regular in rate and rhythm at time of my evaluation. No rubs or murmurs. ABDOMEN: Soft, full, bowel sounds are positive, nontender, no palpable hepatosplenomegaly. EXTREMITIES: Without overt digital clubbing, no cyanosis, no pedal edema. Pedal pulses are 2+ bilaterally. NEUROLOGIC: Pupils are equal, round, about 3 mm, reactive to light. Extraocular muscle movements could not be assessed. He had spontaneous movements to all extremities, but was not following my prompts. SKIN: Normal turgor without overt cellulitis or rash and the area was examined. Please see wound care notes for further description of the skin. LABORATORY DATA: From my review are as follows: Admission white cell count 8900, hemoglobin 13.8, hematocrit 41.2, platelet count 335. No significant band forms were reported. Arterial blood gas showed a pH of 7.31, pCO2 of 41, pO2 was not recorded, this was on 100% FiO2. Most recent blood gas, which showed a pH of 7.27, pCO2 of 36 and pO2 of 101 on 35% FiO2. Serum sodium was 138, potassium 4.2, chloride 100, bicarbonate 16, BUN 8, creatinine 0.9, glucose was 94. Lactic acid level was 4.1, down to 3.3. Liver function tests essentially within normal limits. Troponin within normal limits. CPK was up at 646. Urinalysis was negative for nitrites and leukocyte esterase. Urine drug screen was negative. Blood alcohol level was 0.29. Blood cultures no growth to date. Tracheal aspirate is pending. Chest x-ray was reviewed, which showed ET tube in good position at the level of the aortic knob, clear lung thomas, otherwise. ASSESSMENT: 1. Acute hypoxemic respiratory failure, on mechanical ventilatory support. 2. Acute asthma attack. 3. History of alcohol abuse. 4. Oropharyngeal dysphagia. 5. Metabolic acidosis. 6. Lactic acidosis. 7. Elevated serum alcohols. PLAN: We will keep him on full mechanical ventilatory support in the short time, ventilator will be adjusted. I will increase the tidal volumes to 500 and increase the rate to 25 in the short time. His peak pressures are in the 20s, actually increasing the rate to 30. Repeat an ABG in about a couple of hours and adjust as necessary. I will discontinue his Ativan, continue the propofol and add fentanyl. We will discontinue his Shafer catheter. I am ordering a D5W with bicarbonate drip 3 amps of bicarbonate per liter and run that at 100 an hour for 2 liters. Oxygen will be weaned to keep sats greater than or equal to about 90%. Ventilator-associated pneumonia bundle has been instituted. We will continue empiric antibiotic therapy with Rocephin and Zithromax. He will be placed on GI prophylaxis. DVT prophylaxis will be continued. I will watch him closely and thus his blood alcohol level drops. If he does show evidence of delirium, he will be placed on a CIWA protocol. Flu and pneumonia vaccination will be addressed per protocol. Thank you very much for the consult, Dr. Tolliver. We will follow along and make further recommendations as picture progresses/becomes clearer. He is critically ill on life-sustaining interventions including mechanical ventilatory support at high risk of decompensation including the risk of . At this time, I spent about 35 minutes of critical care time without overlap and excluding any procedural time that may be necessary. JOB# [id number] ROAY/MEGAN MILNER
[2018-11-16] MEDS: LORazepam 2 MG/ML VIAL IV PRN ×3 (02:00→21:20)
[2018-11-16] MEDS: PROPOFOL 1,000 MG/100 ML BOTTLE IV SCH ×2 (02:24→10:41)
[2018-11-16] MEDS: methylPREDNISolone Sod Succinate 125 MG/2 ML INJ IV SCH ×4 (02:26→17:54)
[2018-11-16] MEDS: ALBUTEROL 2.5 MG/3 ML NEBU IH SCH ×4 (03:08→20:12)
[2018-11-16] MEDS: fentaNYL DRIP Premix 2,000 MCG/100 ML BAG IV SCH ×3 (03:13→22:43)
[2018-11-16] MEDS: cefTRIAXone/NS 1 GM/50 ML 1 GM/50 ML BAG IV SCH (05:47)
--- NOTE | 2018-11-16 07:00 | XRay Report ---
CHEST 1 VIEW INDICATION / CLINICAL INFORMATION: follow up respiratory failure. COMPARISON: 11/15/2018 FINDINGS: SUPPORT DEVICES: ET tube and NG tube remain in stable position. HEART / MEDIASTINUM: No significant abnormality. LUNGS / PLEURA: No significant pulmonary or pleural abnormality. No pneumothorax. ADDITIONAL FINDINGS: No significant additional findings. IMPRESSION: 1. No acute findings. No interval change. Signer Name: Rosario Kay MD Signed: 11/16/2018 6:55 AM Workstation Name: [id number]
[2018-11-16] MEDS: BUDESONIDE 0.5 MG/2 ML NEBU IH SCH ×2 (08:19→20:12)
[2018-11-16] MEDS: ARFORMOTEROL 15 MCG/2 ML NEBU IH SCH ×2 (08:19→20:12)
[2018-11-16] MEDS: AZITHROMYCIN 500 MG in SODIUM CHLORIDE 0.9% 250ML 250 ML IV SCH (09:27)
[2018-11-16] MEDS: ENOXAPARIN 40 MG/0.4 ML INJ SUB-Q SCH (09:28)
[2018-11-16] MEDS: FAMOTIDINE 20 MG/2 ML INJ IV SCH ×2 (09:28→21:29)
--- NOTE | 2018-11-16 10:44 | Progress Note ---
Assessment and Plan CCT 34 mins - Patient Problems (1) Acute respiratory failure with hypoxia Current Visit: Yes Status: Acute Plan to address problem: On Vent Weaning in progress (2) Status asthmaticus Current Visit: Yes Status: Acute Qualifiers: Asthma severity: severe Asthma persistence: persistent Qualified Code(s): J45.52 - Severe persistent asthma with status asthmaticus Plan to address problem: Cont neb treatments IV steroids (3) EtOH dependence Current Visit: Yes Status: Chronic Plan to address problem: Cont Ciwa protocol and IV fluids (4) Delirium Current Visit: Yes Status: Acute (5) Delirium tremens Current Visit: Yes Status: Acute Plan to address problem: Cont CIWA protocol (6) HTN (hypertension) Current Visit: Yes Status: Chronic Qualifiers: Hypertension type: essential hypertension Qualified Code(s): I10 - Essential (primary) hypertension Plan to address problem: Cont antihypertensives (7) DVT prophylaxis Current Visit: Yes Status: Acute Plan to address problem: On Lovenox and GI prophylaxis Subjective Date of service: 11/16/18 Principal diagnosis: Resp failure and Asthma exacerbation Interval history: S/p intubation secondary to Resp failure and status asthmaticus On vent Agitated occasionally Objective - Constitutional Vitals: Vital Signs - 12hr 11/15/18 11/15/18 11/15/18 22:46 23:00 23:12 Temperature 99.5 F Pulse Rate 61 59 L Pulse Rate [ Anterior Bilateral Throughout] Pulse Rate [ Bilateral Throughout] Respiratory 12 12 Rate Respiratory Rate [Anterior Bilateral Throughout] Respiratory Rate [Bilateral Throughout] Blood Pressure 132/82 132/82 O2 Sat by Pulse 98 98 Oximetry 11/15/18 11/15/18 11/15/18 23:15 23:30 23:36 Temperature Pulse Rate 80 57 L 62 Pulse Rate [ Anterior Bilateral Throughout] Pulse Rate [ Bilateral Throughout] Respiratory 17 12 Rate Respiratory Rate [Anterior Bilateral Throughout] Respiratory Rate [Bilateral Throughout] Blood Pressure 129/86 129/86 O2 Sat by Pulse 99 98 98 Oximetry 11/15/18 11/16/18 11/16/18 23:45 00:01 00:15 Temperature Pulse Rate 61 59 L 61 Pulse Rate [ Anterior Bilateral Throughout] Pulse Rate [ Bilateral Throughout] Respiratory 12 12 12 Rate Respiratory Rate [Anterior Bilateral Throughout] Respiratory Rate [Bilateral Throughout] Blood Pressure 129/86 124/78 124/78 O2 Sat by Pulse 98 98 98 Oximetry 11/16/18 11/16/18 11/16/18 00:30 00:45 00:54 Temperature Pulse Rate 64 112 H 112 H Pulse Rate [ Anterior Bilateral Throughout] Pulse Rate [ Bilateral Throughout] Respiratory 12 17 17 Rate Respiratory Rate [Anterior Bilateral Throughout] Respiratory Rate [Bilateral Throughout] Blood Pressure 125/83 125/83 O2 Sat by Pulse 98 97 Oximetry 11/16/18 11/16/18 11/16/18 01:00 01:15 01:30 Temperature Pulse Rate 80 71 69 Pulse Rate [ Anterior Bilateral Throughout] Pulse Rate [ Bilateral Throughout] Respiratory 12 12 13 Rate Respiratory Rate [Anterior Bilateral Throughout] Respiratory Rate [Bilateral Throughout] Blood Pressure 139/115 139/115 136/77 O2 Sat by Pulse 91 94 96 Oximetry 11/16/18 11/16/18 11/16/18 01:45 02:00 02:15 Temperature Pulse Rate 67 79 87 Pulse Rate [ Anterior Bilateral Throughout] Pulse Rate [ Bilateral Throughout] Respiratory 13 10 L 12 Rate Respiratory Rate [Anterior Bilateral Throughout] Respiratory Rate [Bilateral Throughout] Blood Pressure 136/77 138/98 136/77 O2 Sat by Pulse 96 95 99 Oximetry 11/16/18 11/16/18 11/16/18 02:25 02:31 02:45 Temperature Pulse Rate 112 H 65 64 Pulse Rate [ Anterior Bilateral Throughout] Pulse Rate [ Bilateral Throughout] Respiratory 12 12 12 Rate Respiratory Rate [Anterior Bilateral Throughout] Respiratory Rate [Bilateral Throughout] Blood Pressure 136/77 136/77 O2 Sat by Pulse 97 97 98 Oximetry 11/16/18 11/16/18 11/16/18 03:01 03:09 03:15 Temperature Pulse Rate 62 62 Pulse Rate [ 76 Anterior Bilateral Throughout] Pulse Rate [ 63 Bilateral Throughout] Respiratory 12 12 Rate Respiratory 12 Rate [Anterior Bilateral Throughout] Respiratory 12 Rate [Bilateral Throughout] Blood Pressure 138/98 138/98 O2 Sat by Pulse 98 98 Oximetry 11/16/18 11/16/18 11/16/18 03:31 03:35 03:45 Temperature 99.7 F H Pulse Rate 59 L 63 Pulse Rate [ Anterior Bilateral Throughout] Pulse Rate [ Bilateral Throughout] Respiratory 12 12 Rate Respiratory Rate [Anterior Bilateral Throughout] Respiratory Rate [Bilateral Throughout] Blood Pressure 138/98 138/98 O2 Sat by Pulse 99 99 Oximetry 11/16/18 11/16/18 11/16/18 04:00 04:01 04:15 Temperature Pulse Rate 56 L 56 L 54 L Pulse Rate [ Anterior Bilateral Throughout] Pulse Rate [ Bilateral Throughout] Respiratory 12 12 12 Rate Respiratory Rate [Anterior Bilateral Throughout] Respiratory Rate [Bilateral Throughout] Blood Pressure 138/98 128/85 O2 Sat by Pulse 97 98 98 Oximetry 11/16/18 11/16/18 11/16/18 04:30 04:45 04:55 Temperature Pulse Rate 55 L 57 L 63 Pulse Rate [ Anterior Bilateral Throughout] Pulse Rate [ Bilateral Throughout] Respiratory 12 12 Rate Respiratory Rate [Anterior Bilateral Throughout] Respiratory Rate [Bilateral Throughout] Blood Pressure 120/81 120/81 120/81 O2 Sat by Pulse 98 98 98 Oximetry 11/16/18 11/16/18 11/16/18 05:00 05:15 05:30 Temperature Pulse Rate 57 L 55 L 57 L Pulse Rate [ Anterior Bilateral Throughout] Pulse Rate [ Bilateral Throughout] Respiratory 12 12 12 Rate Respiratory Rate [Anterior Bilateral Throughout] Respiratory Rate [Bilateral Throughout] Blood Pressure 124/83 124/83 126/89 O2 Sat by Pulse 97 97 98 Oximetry 11/16/18 11/16/18 11/16/18 05:45 06:00 06:15 Temperature Pulse Rate 60 58 L 74 Pulse Rate [ Anterior Bilateral Throughout] Pulse Rate [ Bilateral Throughout] Respiratory 12 12 9 L Rate Respiratory Rate [Anterior Bilateral Throughout] Respiratory Rate [Bilateral Throughout] Blood Pressure 126/89 123/85 123/85 O2 Sat by Pulse 97 97 97 Oximetry 11/16/18 11/16/18 11/16/18 06:30 06:45 07:00 Temperature Pulse Rate 68 71 72 Pulse Rate [ Anterior Bilateral Throughout] Pulse Rate [ Bilateral Throughout] Respiratory 12 13 12 Rate Respiratory Rate [Anterior Bilateral Throughout] Respiratory Rate [Bilateral Throughout] Blood Pressure 127/89 127/89 126/90 O2 Sat by Pulse 96 95 94 Oximetry 11/16/18 11/16/18 11/16/18 07:15 07:30 07:45 Temperature Pulse Rate 68 67 69 Pulse Rate [ Anterior Bilateral Throughout] Pulse Rate [ Bilateral Throughout] Respiratory 12 13 12 Rate Respiratory Rate [Anterior Bilateral Throughout] Respiratory Rate [Bilateral Throughout] Blood Pressure 126/90 122/83 122/83 O2 Sat by Pulse 93 95 95 Oximetry 11/16/18 11/16/18 11/16/18 08:00 08:15 08:19 Temperature 97.8 F Pulse Rate 68 66 Pulse Rate [ Anterior Bilateral Throughout] Pulse Rate [ 69 Bilateral Throughout] Respiratory 12 10 L Rate Respiratory Rate [Anterior Bilateral Throughout] Respiratory 14 Rate [Bilateral Throughout] Blood Pressure 124/87 124/87 O2 Sat by Pulse 95 94 Oximetry 11/16/18 11/16/18 11/16/18 08:24 08:31 08:45 Temperature Pulse Rate 78 88 67 Pulse Rate [ Anterior Bilateral Throughout] Pulse Rate [ Bilateral Throughout] Respiratory 16 12 Rate Respiratory Rate [Anterior Bilateral Throughout] Respiratory Rate [Bilateral Throughout] Blood Pressure 149/94 149/94 149/94 O2 Sat by Pulse 95 95 94 Oximetry 11/16/18 09:01 Temperature Pulse Rate 99 H Pulse Rate [ Anterior Bilateral Throughout] Pulse Rate [ Bilateral Throughout] Respiratory 17 Rate Respiratory Rate [Anterior Bilateral Throughout] Respiratory Rate [Bilateral Throughout] Blood Pressure 159/99 O2 Sat by Pulse 100 Oximetry General appearance: Present: mild distress, well-nourished - EENT Eyes: PERRL, EOM intact ENT: hearing intact, clear oral mucosa Ears: bilateral: normal - Neck Neck: supple, normal ROM - Respiratory Respiratory effort: normal Respiratory: bilateral: CTA - Breasts Breasts: normal - Cardiovascular Heart rate: 78 Rhythm: regular Heart Sounds: Present: S1 & S2. Absent: gallop, rub Extremities: no ischemia, pulses intact, No edema, normal color, Full ROM - Gastrointestinal General gastrointestinal: Present: soft, non-tender, non-distended, normal bowel sounds - Genitourinary Male genitourinary: normal - Integumentary Integumentary: clear, warm, dry - Musculoskeletal Musculoskeletal: strength equal bilaterally, generalized weakness - Neurologic Neurologic: moves all extremities - Labs CBC & Chem 7: 11/15/18 04:33 11/15/18 04:33 Labs: Abnormal lab results 11/13/18 11/15/18 11/16/18 Range/Units 23:22 13:20 04:54 POC ABG pCO2 56.4 H (35-45) POC ABG pO2 > 400 H (80-105) POC Glucose 150 H (70-105)
--- NOTE | 2018-11-16 14:05 | Progress Note ---
Assessment and Plan Acute hypoxemic respiratory failure, on mechanical ventilatory support. Acute asthma attack. History of alcohol abuse. Oropharyngeal dysphagia. Metabolic acidosis. Lactic acidosis. Elevated serum alcohols - add Seroquel for delirium issues - follow serum Mg & PO4 levels and replete - begin thiamine and folic acid with daily MVI - scopolamine patch for secretion control - continue CIWA protocol with IV Ativan - keep set rate at 12/min - continue to wean supplemental oxygen for target O2 sat's > 90% acutely - Daily SAT and SBT assessment as tolerated - VAP bundle addressed - Lung protective strategies - continue bronchodilators with pulmonary hygiene per RT - Continue with fentanyl, titrate for RASS of 0 to -1 - Maintenance of sleep-wake cycle, avoid delirium - enteral nutritional support at goal rate as tolerated - Accuchecks with glycemic control efren SSI (While critically ill target blood glucose of 140-180 mg/dL; avoid hypoglycemic) - G.I. & VTE prophylaxis - PT/OT/ROM exercises - mobility protocols for pressure ulcer prophylaxis - Monitor hemodynamics closely - continue other care per attending / other customer relations consultant's - discharge planning ongoing concurrently .... re-evaluate in am & prn CONDITION: CRITICAL PROGNOSIS: GUARDED CODE STATUS: FULL CODE The high probability of a clinically significant, sudden or life-threatening deterioration of the [respiratory, cardiovascular] system(s) required my full and direct attention, intervention and personal management. The aggregate critical care time was [35] minutes without overlap. Time includes spent on; [x] Data Review and interpretation [x] Patient assessment and monitoring of vital signs [x] Documentation [x] Medication orders and management Subjective Date of service: 11/16/18 Principal diagnosis: Ac. hypoxemic resp failure; Ac. asthma exacerbation; EtOH abuse; Dysphagia Interval history: Patient is seen today for: Acute hypoxemic respiratory failure; Acute asthma attack; History of alcohol abuse; Oropharyngeal dysphagia; Metabolic acidosis; Lactic acidosis; Elevated serum alcohol level Seen and examined at bedside; 24hour events reviewed; nursing and respiratory care staff consulted; no adverse overnight events reported to me; resting peacefully in bed; agitated during sedation vacations still; No N/V/F/C Objective Vital Signs - 12hr 11/16/18 11/16/18 11/16/18 02:15 02:25 02:31 Temperature Pulse Rate 87 112 H 65 Pulse Rate [ Anterior Bilateral Throughout] Pulse Rate [ Bilateral Throughout] Respiratory 12 12 12 Rate Respiratory Rate [Anterior Bilateral Throughout] Respiratory Rate [Bilateral Throughout] Blood Pressure 136/77 136/77 O2 Sat by Pulse 99 97 97 Oximetry 11/16/18 11/16/18 11/16/18 02:45 03:01 03:09 Temperature Pulse Rate 64 62 Pulse Rate [ 76 Anterior Bilateral Throughout] Pulse Rate [ 63 Bilateral Throughout] Respiratory 12 12 Rate Respiratory 12 Rate [Anterior Bilateral Throughout] Respiratory 12 Rate [Bilateral Throughout] Blood Pressure 136/77 138/98 O2 Sat by Pulse 98 98 Oximetry 11/16/18 11/16/18 11/16/18 03:15 03:31 03:35 Temperature 99.7 F H Pulse Rate 62 59 L Pulse Rate [ Anterior Bilateral Throughout] Pulse Rate [ Bilateral Throughout] Respiratory 12 12 Rate Respiratory Rate [Anterior Bilateral Throughout] Respiratory Rate [Bilateral Throughout] Blood Pressure 138/98 138/98 O2 Sat by Pulse 98 99 Oximetry 11/16/18 11/16/18 11/16/18 03:45 04:00 04:01 Temperature Pulse Rate 63 56 L 56 L Pulse Rate [ Anterior Bilateral Throughout] Pulse Rate [ Bilateral Throughout] Respiratory 12 12 12 Rate Respiratory Rate [Anterior Bilateral Throughout] Respiratory Rate [Bilateral Throughout] Blood Pressure 138/98 138/98 O2 Sat by Pulse 99 97 98 Oximetry 11/16/18 11/16/18 11/16/18 04:15 04:30 04:45 Temperature Pulse Rate 54 L 55 L 57 L Pulse Rate [ Anterior Bilateral Throughout] Pulse Rate [ Bilateral Throughout] Respiratory 12 12 12 Rate Respiratory Rate [Anterior Bilateral Throughout] Respiratory Rate [Bilateral Throughout] Blood Pressure 128/85 120/81 120/81 O2 Sat by Pulse 98 98 98 Oximetry 11/16/18 11/16/18 11/16/18 04:55 05:00 05:15 Temperature Pulse Rate 63 57 L 55 L Pulse Rate [ Anterior Bilateral Throughout] Pulse Rate [ Bilateral Throughout] Respiratory 12 12 Rate Respiratory Rate [Anterior Bilateral Throughout] Respiratory Rate [Bilateral Throughout] Blood Pressure 120/81 124/83 124/83 O2 Sat by Pulse 98 97 97 Oximetry 11/16/18 11/16/18 11/16/18 05:30 05:45 06:00 Temperature Pulse Rate 57 L 60 58 L Pulse Rate [ Anterior Bilateral Throughout] Pulse Rate [ Bilateral Throughout] Respiratory 12 12 12 Rate Respiratory Rate [Anterior Bilateral Throughout] Respiratory Rate [Bilateral Throughout] Blood Pressure 126/89 126/89 123/85 O2 Sat by Pulse 98 97 97 Oximetry 11/16/18 11/16/18 11/16/18 06:15 06:30 06:45 Temperature Pulse Rate 74 68 71 Pulse Rate [ Anterior Bilateral Throughout] Pulse Rate [ Bilateral Throughout] Respiratory 9 L 12 13 Rate Respiratory Rate [Anterior Bilateral Throughout] Respiratory Rate [Bilateral Throughout] Blood Pressure 123/85 127/89 127/89 O2 Sat by Pulse 97 96 95 Oximetry 11/16/18 11/16/18 11/16/18 07:00 07:15 07:30 Temperature Pulse Rate 72 68 67 Pulse Rate [ Anterior Bilateral Throughout] Pulse Rate [ Bilateral Throughout] Respiratory 12 12 13 Rate Respiratory Rate [Anterior Bilateral Throughout] Respiratory Rate [Bilateral Throughout] Blood Pressure 126/90 126/90 122/83 O2 Sat by Pulse 94 93 95 Oximetry 11/16/18 11/16/18 11/16/18 07:45 08:00 08:15 Temperature 97.8 F Pulse Rate 69 68 66 Pulse Rate [ Anterior Bilateral Throughout] Pulse Rate [ Bilateral Throughout] Respiratory 12 12 10 L Rate Respiratory Rate [Anterior Bilateral Throughout] Respiratory Rate [Bilateral Throughout] Blood Pressure 122/83 124/87 124/87 O2 Sat by Pulse 95 95 94 Oximetry 11/16/18 11/16/18 11/16/18 08:19 08:24 08:31 Temperature Pulse Rate 78 88 Pulse Rate [ Anterior Bilateral Throughout] Pulse Rate [ 69 Bilateral Throughout] Respiratory 16 Rate Respiratory Rate [Anterior Bilateral Throughout] Respiratory 14 Rate [Bilateral Throughout] Blood Pressure 149/94 149/94 O2 Sat by Pulse 95 95 Oximetry 11/16/18 11/16/18 11/16/18 08:45 09:01 09:15 Temperature Pulse Rate 67 99 H 75 Pulse Rate [ Anterior Bilateral Throughout] Pulse Rate [ Bilateral Throughout] Respiratory 12 17 10 L Rate Respiratory Rate [Anterior Bilateral Throughout] Respiratory Rate [Bilateral Throughout] Blood Pressure 149/94 159/99 149/94 O2 Sat by Pulse 94 100 95 Oximetry 11/16/18 11/16/18 11/16/18 09:30 09:45 10:00 Temperature Pulse Rate 89 71 85 Pulse Rate [ Anterior Bilateral Throughout] Pulse Rate [ Bilateral Throughout] Respiratory 10 L 13 13 Rate Respiratory Rate [Anterior Bilateral Throughout] Respiratory Rate [Bilateral Throughout] Blood Pressure 159/101 159/99 144/91 O2 Sat by Pulse 94 93 93 Oximetry 11/16/18 11/16/18 11/16/18 10:15 10:30 10:45 Temperature Pulse Rate 99 H 87 96 H Pulse Rate [ Anterior Bilateral Throughout] Pulse Rate [ Bilateral Throughout] Respiratory 10 L 15 20 Rate Respiratory Rate [Anterior Bilateral Throughout] Respiratory Rate [Bilateral Throughout] Blood Pressure 144/91 141/89 141/89 O2 Sat by Pulse 95 92 96 Oximetry 11/16/18 11/16/18 11/16/18 11:00 11:15 11:30 Temperature Pulse Rate 74 75 71 Pulse Rate [ Anterior Bilateral Throughout] Pulse Rate [ Bilateral Throughout] Respiratory 13 13 14 Rate Respiratory Rate [Anterior Bilateral Throughout] Respiratory Rate [Bilateral Throughout] Blood Pressure 136/85 136/85 128/85 O2 Sat by Pulse 95 96 96 Oximetry 11/16/18 11/16/18 11/16/18 11:45 12:00 12:03 Temperature 99.5 F Pulse Rate 69 75 71 Pulse Rate [ Anterior Bilateral Throughout] Pulse Rate [ Bilateral Throughout] Respiratory 13 12 Rate Respiratory Rate [Anterior Bilateral Throughout] Respiratory Rate [Bilateral Throughout] Blood Pressure 128/85 128/90 128/90 O2 Sat by Pulse 96 97 98 Oximetry Constitutional: no acute distress, other (middle aged AAM, normocephalic and atraumatic with mildly increased resp effort at rest) Eyes: non-icteric ENT: oropharynx moist, other (ETT 24 cm ALISON) Neck: supple, no lymphadenopathy, no JVD Effort: mildly labored Ascultation: Bilateral: diminished breath sounds, rhonchi (scant) Percussion: Bilateral: not dull Cardiovascular: regular rate and rhythm Gastrointestinal: normoactive bowel sounds, soft, non-tender, non-distended Integumentary: normal Extremities: no cyanosis, no edema, pulses normal, no ischemia or petechiae Neurologic: non-focal exam (grossly), pupils equal and round, CN II-XII normal, motor strength normal and Psychiatric: other (unable to assess re: AMS) CBC and BMP: 11/15/18 04:33 11/15/18 04:33 ABG, PT/INR, D-dimer: ABG POC ABG pH 7.358 (7.35-7.45) 11/16/18 04:54 POC ABG pCO2 56.4 (35-45) H 11/16/18 04:54 POC ABG pO2 95 (80-105) 11/16/18 04:54 POC ABG HCO3 31.7 (22-26 mml/L) 11/16/18 04:54 POC ABG Total CO2 33 (23-27mmol/L) 11/16/18 04:54 POC ABG O2 Sat 97 11/16/18 04:54 Abnormal lab findings: Abnormal Labs 11/13/18 11/13/18 11/13/18 21:30 21:30 21:30 Eos % (Auto) 8.2 H Baso % (Auto) 2.3 H Eos # 0.7 H Baso # 0.2 H Seg Neuts % (Manual) Lymphocytes % (Manual) Lymphocytes # (Manual) POC ABG pH POC ABG pCO2 POC ABG pO2 Carbon Dioxide 16 L BUN 8 L Glucose POC Glucose Lactic Acid Calcium Total Creatine Kinase 646 H Plasma/Serum Alcohol 0.29 H 11/13/18 11/13/18 11/13/18 21:56 22:48 23:22 Eos % (Auto) Baso % (Auto) Eos # Baso # Seg Neuts % (Manual) Lymphocytes % (Manual) Lymphocytes # (Manual) POC ABG pH 7.312 L POC ABG pCO2 POC ABG pO2 > 400 H Carbon Dioxide BUN Glucose POC Glucose Lactic Acid 3.70 H* 4.30 H* Calcium Total Creatine Kinase Plasma/Serum Alcohol 11/13/18 11/14/18 11/14/18 23:51 00:51 01:49 Eos % (Auto) Baso % (Auto) Eos # Baso # Seg Neuts % (Manual) Lymphocytes % (Manual) Lymphocytes # (Manual) POC ABG pH POC ABG pCO2 POC ABG pO2 Carbon Dioxide BUN Glucose POC Glucose Lactic Acid 4.10 H* 3.80 H* Calcium Total Creatine Kinase 623 H Plasma/Serum Alcohol 11/14/18 11/14/18 11/14/18 01:49 03:41 03:41 Eos % (Auto) Baso % (Auto) Eos # Baso # Seg Neuts % (Manual) 96.0 H Lymphocytes % (Manual) 4.0 L Lymphocytes # (Manual) 0.3 L POC ABG pH POC ABG pCO2 POC ABG pO2 Carbon Dioxide 16 L BUN Glucose 102 H POC Glucose Lactic Acid 3.40 H* Calcium 7.0 L D Total Creatine Kinase Plasma/Serum Alcohol 11/14/18 11/14/18 11/14/18 03:41 05:08 05:12 Eos % (Auto) Baso % (Auto) Eos # Baso # Seg Neuts % (Manual) Lymphocytes % (Manual) Lymphocytes # (Manual) POC ABG pH 7.266 L POC ABG pCO2 POC ABG pO2 Carbon Dioxide BUN Glucose POC Glucose Lactic Acid 3.30 H* 3.10 H* Calcium Total Creatine Kinase Plasma/Serum Alcohol 11/14/18 11/14/18 11/14/18 07:08 07:31 15:47 Eos % (Auto) Baso % (Auto) Eos # Baso # Seg Neuts % (Manual) Lymphocytes % (Manual) Lymphocytes # (Manual) POC ABG pH POC ABG pCO2 POC ABG pO2 113 H Carbon Dioxide BUN Glucose POC Glucose Lactic Acid 2.90 H* Calcium Total Creatine Kinase 599 H Plasma/Serum Alcohol 11/15/18 11/15/18 11/15/18 03:48 04:33 13:20 Eos % (Auto) Baso % (Auto) Eos # Baso # Seg Neuts % (Manual) Lymphocytes % (Manual) Lymphocytes # (Manual) POC ABG pH 7.468 H POC ABG pCO2 33.5 L POC ABG pO2 75 L Carbon Dioxide BUN Glucose 177 H POC Glucose 150 H Lactic Acid Calcium 7.9 L Total Creatine Kinase Plasma/Serum Alcohol 11/16/18 04:54 Eos % (Auto) Baso % (Auto) Eos # Baso # Seg Neuts % (Manual) Lymphocytes % (Manual) Lymphocytes # (Manual) POC ABG pH POC ABG pCO2 56.4 H POC ABG pO2 Carbon Dioxide BUN Glucose POC Glucose Lactic Acid Calcium Total Creatine Kinase Plasma/Serum Alcohol Allied health notes reviewed: nursing
[2018-11-16] MEDS: MULTIVITAMINS ,THERAPEUTIC TAB PO SCH (15:19)
[2018-11-16] MEDS: THIAMINE 100 MG TAB PO SCH (15:19)
[2018-11-16] MEDS: FOLIC ACID 1 MG TAB PO SCH (15:20)
[2018-11-16] MEDS: SCOPOLAMINE TRANSDERMAL PATCH 72 HR TD SCH (16:01)
[2018-11-16] MEDS: QUEtiapine 200 MG TAB PO SCH ×2 (16:01→21:29)
[2018-11-16] MEDS: ACETAMINOPHEN 325 MG TAB PO PRN (16:44)
[2018-11-17] MEDS: LORazepam 2 MG/ML VIAL IV PRN ×9 (00:05→23:08)
[2018-11-17] MEDS: hydrALAZINE 20 MG/1 ML INJ IV PRN ×5 (00:06→19:45)
[2018-11-17] MEDS: methylPREDNISolone Sod Succinate 125 MG/2 ML INJ IV SCH ×4 (00:24→17:29)
[2018-11-17] MEDS: ALBUTEROL 2.5 MG/3 ML NEBU IH SCH ×2 (04:46→08:52)
--- NOTE | 2018-11-17 04:55 | XRay Report ---
CHEST 1 VIEW 11/17/2018 2:25 AM INDICATION / CLINICAL INFORMATION: follow up respiratory failure. COMPARISON: Chest x-ray 11/16/2018 FINDINGS: SUPPORT DEVICES: None. Previous noted endotracheal nasogastric tubes have been removed. HEART / MEDIASTINUM: No significant abnormality. LUNGS / PLEURA: Mild linear bibasilar atelectasis. No significant pulmonary or pleural abnormality. N o pneumothorax. ADDITIONAL FINDINGS: No significant additional findings. IMPRESSION: 1. No acute findings. Signer Name: Howie Young MD Signed: 11/17/2018 4:50 AM Workstation Name: [id number]
[2018-11-17] MEDS: cefTRIAXone/NS 1 GM/50 ML 1 GM/50 ML BAG IV SCH (05:00)
[2018-11-17 05:37] LABS: Basophils % (Auto) 0.1 % (0.0-1.8); Hematocrit 36.8 % (35.5-45.6); Hemoglobin 12.1 gm/dl (11.8-15.2); Lymphocytes # (Auto) 0.4 K/mm3 (1.2-5.4); Lymphocytes % (Auto) 5.9 % (13.4-35.0); Mean Corpuscular HGB Conc 33 % (32-34); Mean Corpuscular Volume 92 fl (84-94); Monocytes # (Auto) 0.7 K/mm3 (0.0-0.8); Monocytes % (Auto) 10.3 % (0.0-7.3); Platelet Count 275 K/mm3 (140-440)
[2018-11-17 06:01] LABS: BUN/Creatinine Ratio 29; Blood Urea Nitrogen 20 mg/dL (9-20); Hemolysis Index 9
[2018-11-17] MEDS: ARFORMOTEROL 15 MCG/2 ML NEBU IH SCH ×2 (08:52→20:54)
[2018-11-17] MEDS: BUDESONIDE 0.5 MG/2 ML NEBU IH SCH ×2 (08:52→20:54)
[2018-11-17] MEDS: ENOXAPARIN 40 MG/0.4 ML INJ SUB-Q SCH (10:27)
[2018-11-17] MEDS: AZITHROMYCIN 500 MG in SODIUM CHLORIDE 0.9% 250ML 250 ML IV SCH (10:27)
[2018-11-17] MEDS: FAMOTIDINE 20 MG/2 ML INJ IV SCH ×2 (10:28→21:33)
[2018-11-17] MEDS ORDERED: hydrALAZINE 20 MG/1 ML INJ IV ONE (12:02)
--- NOTE | 2018-11-17 12:40 | Progress Note ---
Assessment and Plan CCT 34 mins - Patient Problems (1) Acute respiratory failure with hypoxia Current Visit: Yes Status: Acute Plan to address problem: Self extubated Doing well. (2) Status asthmaticus Current Visit: Yes Status: Acute Qualifiers: Asthma severity: severe Asthma persistence: persistent Qualified Code(s): J45.52 - Severe persistent asthma with status asthmaticus Plan to address problem: Cont neb treatments IV steroids Improved Needs neb treatments and steroids (3) EtOH dependence Current Visit: Yes Status: Chronic Plan to address problem: Cont Ciwa protocol and IV fluids improving MH consult (4) Delirium tremens Current Visit: Yes Status: Acute Plan to address problem: Cont CIWA protocol (5) HTN (hypertension) Current Visit: Yes Status: Chronic Qualifiers: Hypertension type: essential hypertension Qualified Code(s): I10 - Ess ential (primary) hypertension Plan to address problem: Cont antihypertensives (6) DVT prophylaxis Current Visit: Yes Status: Acute Plan to address problem: On Lovenox and GI prophylaxis Subjective Date of service: 11/17/18 Principal diagnosis: Ac. hypoxemic resp failure; Ac. asthma exacerbation; EtOH abuse; Dysphagia Interval history: S/p intubation secondary to Resp failure and status asthmaticus Self extubated last night Agitated Wheezing Objective - Constitutional Vitals: Vital Signs - 12hr 11/17/18 11/17/18 11/17/18 00:45 00:52 01:00 Temperature Pulse Rate 99 H 97 H 96 H Pulse Rate [ Bilateral Throughout] Respiratory 12 13 Rate Respiratory Rate [Bilateral Throughout] Blood Pressure 139/89 139/89 142/87 O2 Sat by Pulse 95 93 95 Oximetry 11/17/18 11/17/18 11/17/18 01:15 01:30 01:45 Temperature Pulse Rate 95 H 89 162 H Pulse Rate [ Bilateral Throughout] Respiratory 14 11 L 13 Rate Respiratory Rate [Bilateral Throughout] Blood Pressure 142/87 145/77 145/77 O2 Sat by Pulse 95 94 96 Oximetry 11/17/18 11/17/18 11/17/18 01:55 02:01 02:15 Temperature Pulse Rate 102 H 104 H Pulse Rate [ Bilateral Throughout] Respiratory 18 9 L 8 L Rate Respiratory Rate [Bilateral Throughout] Blood Pressure 150/102 150/102 O2 Sat by Pulse 96 95 96 Oximetry 11/17/18 11/17/18 11/17/18 02:30 02:45 03:01 Temperature Pulse Rate 109 H 122 H 116 H Pulse Rate [ Bilateral Throughout] Respiratory 10 L 15 14 Rate Respiratory Rate [Bilateral Throughout] Blood Pressure 157/99 157/99 150/102 O2 Sat by Pulse 96 97 96 Oximetry 11/17/18 11/17/18 11/17/18 03:15 03:30 03:45 Temperature Pulse Rate 96 H 93 H 94 H Pulse Rate [ Bilateral Throughout] Respiratory 9 L 10 L 9 L Rate Respiratory Rate [Bilateral Throughout] Blood Pressure 155/91 151/101 151/101 O2 Sat by Pulse 97 98 98 Oximetry 11/17/18 11/17/18 11/17/18 04:01 04:04 04:15 Temperature 100.6 F H Pulse Rate 129 H 129 H 97 H Pulse Rate [ Bilateral Throughout] Respiratory 20 20 11 L Rate Respiratory Rate [Bilateral Throughout] Blood Pressure 151/101 151/101 151/101 O2 Sat by Pulse 97 97 96 Oximetry 11/17/18 11/17/18 11/17/18 04:31 04:45 05:00 Temperature Pulse Rate 92 H 92 H 95 H Pulse Rate [ Bilateral Throughout] Respiratory 11 L 12 12 Rate Respiratory Rate [Bilateral Throughout] Blood Pressure 151/100 151/100 163/110 O2 Sat by Pulse 95 98 98 Oximetry 11/17/18 11/17/18 11/17/18 05:15 05:31 05:40 Temperature Pulse Rate 96 H 83 86 Pulse Rate [ Bilateral Throughout] Respiratory 13 14 Rate Respiratory Rate [Bilateral Throughout] Blood Pressure 151/105 151/105 191/106 O2 Sat by Pulse 97 98 Oximetry 11/17/18 11/17/18 11/17/18 05:45 06:01 06:15 Temperature Pulse Rate 112 H 136 H 139 H Pulse Rate [ Bilateral Throughout] Respiratory 11 L 20 20 Rate Respiratory Rate [Bilateral Throughout] Blood Pressure 162/101 191/106 171/105 O2 Sat by Pulse 98 98 93 Oximetry 11/17/18 11/17/18 11/17/18 06:31 06:45 07:01 Temperature Pulse Rate 155 H 132 H 124 H Pulse Rate [ Bilateral Throughout] Respiratory 31 H 25 H 20 Rate Respiratory Rate [Bilateral Throughout] Blood Pressure 160/100 160/100 168/105 O2 Sat by Pulse 94 95 95 Oximetry 11/17/18 11/17/18 11/17/18 07:15 07:31 07:45 Temperature Pulse Rate 112 H 109 H 136 H Pulse Rate [ Bilateral Throughout] Respiratory 13 15 32 H Rate Respiratory Rate [Bilateral Throughout] Blood Pressure 168/105 159/96 159/96 O2 Sat by Pulse 96 97 96 Oximetry 11/17/18 11/17/18 11/17/18 08:00 08:15 08:31 Temperature 98.5 F Pulse Rate 105 H 101 H 110 H Pulse Rate [ Bilateral Throughout] Respiratory 14 14 15 Rate Respiratory Rate [Bilateral Throughout] Blood Pressure 168/106 168/106 174/129 O2 Sat by Pulse 97 98 95 Oximetry 11/17/18 11/17/18 11/17/18 08:45 08:53 09:01 Temperature Pulse Rate 94 H 125 H Pulse Rate [ 93 H Bilateral Throughout] Respiratory 22 21 Rate Respiratory 14 Rate [Bilateral Throughout] Blood Pressure 170/119 170/119 O2 Sat by Pulse 98 Oximetry 11/17/18 11/17/18 11/17/18 09:08 09:15 09:31 Temperature Pulse Rate 94 H 100 H Pulse Rate [ Bilateral Throughout] Respiratory 16 12 Rate Respiratory Rate [Bilateral Throughout] Blood Pressure 153/120 163/107 O2 Sat by Pulse 98 Oximetry 11/17/18 11/17/18 11/17/18 09:45 10:01 10:15 Temperature Pulse Rate 101 H 96 H 100 H Pulse Rate [ Bilateral Throughout] Respiratory 13 11 L 23 Rate Respiratory Rate [Bilateral Throughout] Blood Pressure 163/107 165/127 165/127 O2 Sat by Pulse 94 Oximetry 11/17/18 11/17/18 11/17/18 10:31 10:40 10:45 Temperature Pulse Rate 102 H 124 H 134 H Pulse Rate [ Bilateral Throughout] Respiratory 32 H 29 H Rate Respiratory Rate [Bilateral Throughout] Blood Pressure 162/114 162/114 162/114 O2 Sat by Pulse 94 95 Oximetry 11/17/18 11/17/18 11:00 12:07 Temperature Pulse Rate 98 H 128 H Pulse Rate [ Bilateral Throughout] Respiratory 14 Rate Respiratory Rate [Bilateral Throughout] Blood Pressure 166/109 187/140 O2 Sat by Pulse 93 Oximetry General appearance: Present: mild distress, well-nourished - EENT Eyes: PERRL, EOM intact ENT: hearing intact, clear oral mucosa Ears: bilateral: normal - Neck Neck: supple, normal ROM - Respiratory Respiratory effort: normal Respiratory: bilateral: CTA, rhonchi, wheezing - Breasts Breasts: normal - Cardiovascular Heart rate: 88 Rhythm: regular Heart Sounds: Present: S1 & S2. Absent: gallop, rub Extremities: pulses intact, No edema, normal color, Full ROM - Gastrointestinal General gastrointestinal: Present: soft, non-tender, non-distended, normal bowel sounds Rectal Exam: deferred - Genitourinary Male genitourinary: normal - Integumentary Integumentary: clear, warm, dry - Musculoskeletal Musculoskeletal: 1, strength equal bilaterally - Neurologic Neurologic: moves all extremities - Psychiatric Psychiatric: agitated - Labs CBC & Chem 7: 11/18/18 04:31 11/18/18 04:31 Labs: Abnormal lab results 11/16/18 11/16/18 11/16/18 Range/Units 15:07 18:00 23:40 Lymph % (Auto) (13.4-35.0) % [place] % (Auto) (0.0-7.3) % Lymph # (1.2-5.4) K/mm3 Seg Neutrophils % (40.0-70.0) % POC ABG pH (7.35-7.45) Creatinine (0.8-1.5) mg/dL Glucose (75-100) mg/dL POC Glucose 137 H 152 H (70-105) Calcium (8.4-10.2) mg/dL Magnesium 3.10 H (1.7-2.3) mg/dL 11/17/18 11/17/18 11/17/18 Range/Units 02:38 04:14 04:14 Lymph % (Auto) 5.9 L (13.4-35.0) % [place] % (Auto) 10.3 H (0.0-7.3) % Lymph # 0.4 L (1.2-5.4) K/mm3 Seg Neutrophils % 83.7 H (40.0-70.0) % POC ABG pH 7.453 H (7.35-7.45) Creatinine 0.7 L (0.8-1.5) mg/dL Glucose 147 H (75-100) mg/dL POC Glucose (70-105) Calcium 8.0 L (8.4-10.2) mg/dL Magnesium (1.7-2.3) mg/dL 11/17/18 Range/Units 05:39 Lymph % (Auto) (13.4-35.0) % [place] % (Auto) (0.0-7.3) % Lymph # (1.2-5.4) K/mm3 Seg Neutrophils % (40.0-70.0) % POC ABG pH (7.35-7.45) Creatinine (0.8-1.5) mg/dL Glucose (75-100) mg/dL POC Glucose 138 H (70-105) Calcium (8.4-10.2) mg/dL Magnesium (1.7-2.3) mg/dL
[2018-11-17] MEDS: FOLIC ACID 1 MG TAB PO SCH (12:59)
[2018-11-17] MEDS: QUEtiapine 200 MG TAB PO SCH ×2 (13:00→21:33)
[2018-11-17] MEDS: MULTIVITAMINS ,THERAPEUTIC TAB PO SCH (13:00)
[2018-11-17] MEDS: THIAMINE 100 MG TAB PO SCH (13:00)
[2018-11-17] MEDS: HALOPERIDOL LACTATE 5 MG/1 ML INJ IV PRN ×3 (13:27→19:47)
[2018-11-17] MEDS ORDERED: ALBUTEROL 2.5 MG/3 ML NEBU IH PRN (13:55)
[2018-11-17] MEDS ORDERED: cloNIDine TTS 0.3 MG/24 HR PATCH TD SCH (14:00)
--- NOTE | 2018-11-17 15:30 | XRay Report ---
ABDOMEN 1 VIEW(S) INDICATION / CLINICAL INFORMATION: NGT placement. COMPARISON: None available. FINDINGS: TUBES / LINES: NG tube has tip in body of stomach. BOWEL GAS PATTERN: Mild gaseous distention of both large and small bowel without obstruction. FREE AIR / EXTRALUMINAL GAS: None seen. ADDITIONAL FINDINGS: Left lower lobe linear atelectasis. IMPRESSION: 1. No significant abnormality. Signer Name: Howie Young MD Signed: 11/17/2018 3:26 PM Workstation Name: [email or web address]
--- NOTE | 2018-11-17 15:31 | XRay Report ---
CHEST 1 VIEW 11/17/2018 2:39 PM INDICATION / CLINICAL INFORMATION: Pneumothorax. COMPARISON: Chest x-ray 11/17/2018 at 2:22 AM same day FINDINGS: SUPPORT DEVICES: New NG tube has tip in body of stomach. HEART / MEDIASTINUM: No significant abnormality. LUNGS / PLEURA: Left lower lobe linear atelectasis. Right lung is clear. No significant pulmonary or pleural abnormality. No pneumothorax. ADDITIONAL FINDINGS: No significant additional findings. IMPRESSION: 1. No acute findings. Signer Name: Howie Young MD Signed: 11/17/2018 3:27 PM Workstation Name: [id number]
--- NOTE | 2018-11-17 16:06 | Progress Note ---
Assessment and Plan Acute hypoxemic respiratory failure, on mechanical ventilatory support. Acute asthma attack. History of alcohol abuse. Oropharyngeal dysphagia. Metabolic acidosis. Lactic acidosis. Elevated serum alcohols - NGT placed at bedide - continue Seroquel for delirium issues - serum Mg & PO4 levels WNL - continue thiamine and folic acid with daily MVI - scopolamine patch for secretion control - continue CIWA protocol with IV Ativan - continue to wean supplemental oxygen for target O2 sat's > 90% acutely - continue bronchodilators with pulmonary hygiene per RT - Maintenance of sleep-wake cycle, avoid delirium - continue enteral nutritional support at goal rate as tolerated - ST evaluation - Accuchecks with glycemic control efren SSI (While critically ill target blood glucose of 140-180 mg/dL; avoid hypoglycemic) - G.I. & VTE prophylaxis - PT/OT/ROM exercises - mobility protocols for pressure ulcer prophylaxis - Monitor hemodynamics closely - continue other care per attending / other internal control consultant's - discharge planning ongoing concurrently .... re-evaluate in am & prn ... OK to transfer to medical floor CONDITION: IMPROVED PROGNOSIS: GUARDED CODE STATUS: FULL CODE Subjective Date of service: 11/17/18 Principal diagnosis: Ac. hypoxemic resp failure; Ac. asthma exacerbation; EtOH abuse; Dysphagia Interval history: Patient is seen today for: Acute hypoxemic respiratory failure; Acute asthma attack; History of alcohol abuse; Oropharyngeal dysphagia; Metabolic acidosis; Lactic acidosis; Elevated serum alcohol level Seen and examined at bedside; 24hour events reviewed; nursing and respiratory care staff consulted; no adverse overnight events reported to me; resting peacefully in bed; self extubated overnight; intermittent agitation; NO N/V/F/C Objective Vital Signs - 12hr 11/17/18 11/17/18 11/17/18 04:04 04:15 04:31 Temperature 100.6 F H Pulse Rate 129 H 97 H 92 H Pulse Rate [ Bilateral Throughout] Pulse Rate [ From Monitor] Respiratory 20 11 L 11 L Rate Respiratory Rate [Bilateral Throughout] Blood Pressure 151/101 151/101 151/100 O2 Sat by Pulse 97 96 95 Oximetry 11/17/18 11/17/18 11/17/18 04:45 05:00 05:15 Temperature Pulse Rate 92 H 95 H 96 H Pulse Rate [ Bilateral Throughout] Pulse Rate [ From Monitor] Respiratory 12 12 13 Rate Respiratory Rate [Bilateral Throughout] Blood Pressure 151/100 163/110 151/105 O2 Sat by Pulse 98 98 97 Oximetry 11/17/18 11/17/18 11/17/18 05:31 05:40 05:45 Temperature Pulse Rate 83 86 112 H Pulse Rate [ Bilateral Throughout] Pulse Rate [ From Monitor] Respiratory 14 11 L Rate Respiratory Rate [Bilateral Throughout] Blood Pressure 151/105 191/106 162/101 O2 Sat by Pulse 98 98 Oximetry 11/17/18 11/17/18 11/17/18 06:01 06:15 06:31 Temperature Pulse Rate 136 H 139 H 155 H Pulse Rate [ Bilateral Throughout] Pulse Rate [ From Monitor] Respiratory 20 20 31 H Rate Respiratory Rate [Bilateral Throughout] Blood Pressure 191/106 171/105 160/100 O2 Sat by Pulse 98 93 94 Oximetry 11/17/18 11/17/18 11/17/18 06:45 07:01 07:15 Temperature Pulse Rate 132 H 124 H 112 H Pulse Rate [ Bilateral Throughout] Pulse Rate [ From Monitor] Respiratory 25 H 20 13 Rate Respiratory Rate [Bilateral Throughout] Blood Pressure 160/100 168/105 168/105 O2 Sat by Pulse 95 95 96 Oximetry 11/17/18 11/17/18 11/17/18 07:31 07:45 08:00 Temperature 98.5 F Pulse Rate 109 H 136 H 105 H Pulse Rate [ Bilateral Throughout] Pulse Rate [ From Monitor] Respiratory 15 32 H 14 Rate Respiratory Rate [Bilateral Throughout] Blood Pressure 159/96 159/96 168/106 O2 Sat by Pulse 97 96 97 Oximetry 11/17/18 11/17/18 11/17/18 08:15 08:31 08:45 Temperature Pulse Rate 101 H 110 H 94 H Pulse Rate [ Bilateral Throughout] Pulse Rate [ From Monitor] Respiratory 14 15 22 Rate Respiratory Rate [Bilateral Throughout] Blood Pressure 168/106 174/129 170/119 O2 Sat by Pulse 98 95 Oximetry 11/17/18 11/17/18 11/17/18 08:53 09:01 09:08 Temperature Pulse Rate 125 H Pulse Rate [ 93 H Bilateral Throughout] Pulse Rate [ From Monitor] Respiratory 21 Rate Respiratory 14 Rate [Bilateral Throughout] Blood Pressure 170/119 O2 Sat by Pulse 98 98 Oximetry 11/17/18 11/17/18 11/17/18 09:15 09:31 09:45 Temperature Pulse Rate 94 H 100 H 101 H Pulse Rate [ Bilateral Throughout] Pulse Rate [ From Monitor] Respiratory 16 12 13 Rate Respiratory Rate [Bilateral Throughout] Blood Pressure 153/120 163/107 163/107 O2 Sat by Pulse Oximetry 11/17/18 11/17/18 11/17/18 10:01 10:15 10:31 Temperature Pulse Rate 96 H 100 H 102 H Pulse Rate [ Bilateral Throughout] Pulse Rate [ From Monitor] Respiratory 11 L 23 32 H Rate Respiratory Rate [Bilateral Throughout] Blood Pressure 165/127 165/127 162/114 O2 Sat by Pulse 94 94 Oximetry 11/17/18 11/17/18 11/17/18 10:40 10:45 11:00 Temperature Pulse Rate 124 H 134 H 98 H Pulse Rate [ Bilateral Throughout] Pulse Rate [ From Monitor] Respiratory 29 H 14 Rate Respiratory Rate [Bilateral Throughout] Blood Pressure 162/114 162/114 166/109 O2 Sat by Pulse 95 93 Oximetry 11/17/18 11/17/18 11/17/18 11:15 11:30 11:45 Temperature Pulse Rate 97 H 98 H 109 H Pulse Rate [ Bilateral Throughout] Pulse Rate [ From Monitor] Respiratory 13 13 15 Rate Respiratory Rate [Bilateral Throughout] Blood Pressure 166/109 172/116 172/116 O2 Sat by Pulse 99 94 98 Oximetry 11/17/18 11/17/18 11/17/18 12:00 12:07 12:15 Temperature Pulse Rate 113 H 128 H 101 H Pulse Rate [ Bilateral Throughout] Pulse Rate [ 128 H From Monitor] Respiratory 37 H 14 Rate Respiratory Rate [Bilateral Throughout] Blood Pressure 187/140 187/140 187/140 O2 Sat by Pulse 96 99 Oximetry 11/17/18 11/17/18 11/17/18 12:31 12:45 13:00 Temperature Pulse Rate 120 H 135 H 106 H Pulse Rate [ Bilateral Throughout] Pulse Rate [ From Monitor] Respiratory 31 H 27 H 16 Rate Respiratory Rate [Bilateral Throughout] Blood Pressure 171/120 171/120 179/119 O2 Sat by Pulse 92 96 93 Oximetry 11/17/18 11/17/18 11/17/18 13:15 13:29 13:31 Temperature Pulse Rate 114 H 107 H 124 H Pulse Rate [ Bilateral Throughout] Pulse Rate [ From Monitor] Respiratory 26 H 18 Rate Respiratory Rate [Bilateral Throughout] Blood Pressure 179/119 179/119 194/116 O2 Sat by Pulse 97 94 Oximetry 10/07/3111/17/18 11/17/18 13:45 14:00 14:15 Temperature Pulse Rate 120 H 101 H 98 H Pulse Rate [ Bilateral Throughout] Pulse Rate [ From Monitor] Respiratory 25 H 28 H 14 Rate Respiratory Rate [Bilateral Throughout] Blood Pressure 194/116 183/102 183/102 O2 Sat by Pulse 98 93 97 Oximetry 11/17/18 11/17/18 14:31 15:12 Temperature Pulse Rate 97 H 99 H Pulse Rate [ Bilateral Throughout] Pulse Rate [ From Monitor] Respiratory 13 Rate Respiratory Rate [Bilateral Throughout] Blood Pressure 183/102 182/104 O2 Sat by Pulse 95 Oximetry Constitutional: no acute distress, other (middle aged AAM, normocephalic and atraumatic with mildly increased resp effort at rest) Eyes: non-icteric ENT: oropharynx moist, other (extubated) Neck: supple, no lymphadenopathy, no JVD Effort: mildly labored Ascultation: Bilateral: diminished breath sounds, rhonchi (scant) Percussion: Bilateral: not dull Cardiovascular: regular rate and rhythm Gastrointestinal: normoactive bowel sounds, soft, non-tender, non-distended Integumentary: normal Extremities: no cyanosis, no edema, pulses normal, no ischemia or petechiae Neurologic: non-focal exam (grossly), pupils equal and round, CN II-XII normal, motor strength normal and Psychiatric: other (unable to assess re: AMS) CBC and BMP: 11/17/18 04:14 11/17/18 04:14 ABG, PT/INR, D-dimer: ABG POC ABG pH 7.453 (7.35-7.45) H 11/17/18 02:38 POC ABG pCO2 40.0 (35-45) 11/17/18 02:38 POC ABG pO2 80 (80-105) 11/17/18 02:38 POC ABG HCO3 28.0 (22-26 mml/L) 11/17/18 02:38 POC ABG Total CO2 29 (23-27mmol/L) 11/17/18 02:38 POC ABG O2 Sat 96 11/17/18 02:38 Abnormal lab findings: Abnormal Labs 11/13/18 11/13/18 11/13/18 21:30 21:30 21:30 Lymph % (Auto) [place] % (Auto) Eos % (Auto) 8.2 H Baso % (Auto) 2.3 H Lymph # Eos # 0.7 H Baso # 0.2 H Seg Neutrophils % Seg Neuts % (Manual) Lymphocytes % (Manual) Lymphocytes # (Manual) POC ABG pH POC ABG pCO2 POC ABG pO2 Carbon Dioxide 16 L BUN 8 L Creatinine Glucose POC Glucose Lactic Acid Calcium Magnesium Total Creatine Kinase 646 H Plasma/Serum Alcohol 0.29 H 11/13/18 11/13/18 11/13/18 21:56 22:48 23:22 Lymph % (Auto) [place] % (Auto) Eos % (Auto) Baso % (Auto) Lymph # Eos # Baso # Seg Neutrophils % Seg Neuts % (Manual) Lymphocytes % (Manual) Lymphocytes # (Manual) POC ABG pH 7.312 L POC ABG pCO2 POC ABG pO2 > 400 H Carbon Dioxide BUN Creatinine Glucose POC Glucose Lactic Acid 3.70 H* 4.30 H* Calcium Magnesium Total Creatine Kinase Plasma/Serum Alcohol 11/13/18 11/14/18 11/14/18 23:51 00:51 01:49 Lymph % (Auto) [place] % (Auto) Eos % (Auto) Baso % (Auto) Lymph # Eos # Baso # Seg Neutrophils % Seg Neuts % (Manual) Lymphocytes % (Manual) Lymphocytes # (Manual) POC ABG pH POC ABG pCO2 POC ABG pO2 Carbon Dioxide BUN Creatinine Glucose POC Glucose Lactic Acid 4.10 H* 3.80 H* Calcium Magnesium Total Creatine Kinase 623 H Plasma/Serum Alcohol 11/14/18 11/14/18 11/14/18 01:49 03:41 03:41 Lymph % (Auto) [place] % (Auto) Eos % (Auto) Baso % (Auto) Lymph # Eos # Baso # Seg Neutrophils % Seg Neuts % (Manual) 96.0 H Lymphocytes % (Manual) 4.0 L Lymphocytes # (Manual) 0.3 L POC ABG pH POC ABG pCO2 POC ABG pO2 Carbon Dioxide 16 L BUN Creatinine Glucose 102 H POC Glucose Lactic Acid 3.40 H* Calcium 7.0 L D Magnesium Total Creatine Kinase Plasma/Serum Alcohol 11/14/18 11/14/18 11/14/18 03:41 05:08 05:12 Lymph % (Auto) [place] % (Auto) Eos % (Auto) Baso % (Auto) Lymph # Eos # Baso # Seg Neutrophils % Seg Neuts % (Manual) Lymphocytes % (Manual) Lymphocytes # (Manual) POC ABG pH 7.266 L POC ABG pCO2 POC ABG pO2 Carbon Dioxide BUN Creatinine Glucose POC Glucose Lactic Acid 3.30 H* 3.10 H* Calcium Magnesium Total Creatine Kinase Plasma/Serum Alcohol 11/14/18 11/14/18 11/14/18 07:08 07:31 15:47 Lymph % (Auto) [place] % (Auto) Eos % (Auto) Baso % (Auto) Lymph # Eos # Baso # Seg Neutrophils % Seg Neuts % (Manual) Lymphocytes % (Manual) Lymphocytes # (Manual) POC ABG pH POC ABG pCO2 POC ABG pO2 113 H Carbon Dioxide BUN Creatinine Glucose POC Glucose Lactic Acid 2.90 H* Calcium Magnesium Total Creatine Kinase 599 H Plasma/Serum Alcohol 11/15/18 11/15/18 11/15/18 03:48 04:33 13:20 Lymph % (Auto) [place] % (Auto) Eos % (Auto) Baso % (Auto) Lymph # Eos # Baso # Seg Neutrophils % Seg Neuts % (Manual) Lymphocytes % (Manual) Lymphocytes # (Manual) POC ABG pH 7.468 H POC ABG pCO2 33.5 L POC ABG pO2 75 L Carbon Dioxide BUN Creatinine Glucose 177 H POC Glucose 150 H Lactic Acid Calcium 7.9 L Magnesium Total Creatine Kinase Plasma/Serum Alcohol 11/16/18 11/16/18 11/16/18 04:54 15:07 18:00 Lymph % (Auto) [place] % (Auto) Eos % (Auto) Baso % (Auto) Lymph # Eos # Baso # Seg Neutrophils % Seg Neuts % (Manual) Lymphocytes % (Manual) Lymphocytes # (Manual) POC ABG pH POC ABG pCO2 56.4 H POC ABG pO2 Carbon Dioxide BUN Creatinine Glucose POC Glucose 137 H Lactic Acid Calcium Magnesium 3.10 H Total Creatine Kinase Plasma/Serum Alcohol 11/16/18 11/17/18 11/17/18 23:40 02:38 04:14 Lymph % (Auto) 5.9 L [place] % (Auto) 10.3 H Eos % (Auto) Baso % (Auto) Lymph # 0.4 L Eos # Baso # Seg Neutrophils % 83.7 H Seg Neuts % (Manual) Lymphocytes % (Manual) Lymphocytes # (Manual) POC ABG pH 7.453 H POC ABG pCO2 POC ABG pO2 Carbon Dioxide BUN Creatinine Glucose POC Glucose 152 H Lactic Acid Calcium Magnesium Total Creatine Kinase Plasma/Serum Alcohol 11/17/18 11/17/18 04:14 05:39 Lymph % (Auto) [place] % (Auto) Eos % (Auto) Baso % (Auto) Lymph # Eos # Baso # Seg Neutrophils % Seg Neuts % (Manual) Lymphocytes % (Manual) Lymphocytes # (Manual) POC ABG pH POC ABG pCO2 POC ABG pO2 Carbon Dioxide BUN Creatinine 0.7 L Glucose 147 H POC Glucose 138 H Lactic Acid Calcium 8.0 L Magnesium Total Creatine Kinase Plasma/Serum Alcohol Allied health notes reviewed: nursing
[2018-11-17] MEDS: IPRATROPIUM/ALBUTEROL SULFATE 3 ML AMPUL.NEB IH SCH ×2 (17:14→20:53)
[2018-11-18] MEDS: methylPREDNISolone Sod Succinate 125 MG/2 ML INJ IV SCH ×3 (00:38→11:50)
[2018-11-18] MEDS: HALOPERIDOL LACTATE 5 MG/1 ML INJ IV PRN ×5 (00:38→16:18)
[2018-11-18] MEDS: hydrALAZINE 20 MG/1 ML INJ IV PRN ×2 (04:22→09:19)
--- NOTE | 2018-11-18 05:17 | XRay Report ---
CHEST 1 VIEW INDICATION / CLINICAL INFORMATION: follow up respiratory failure. COMPARISON: Chest radiograph 11/17/2018 FINDINGS: SUPPORT DEVICES: Stable position of enteric tube. HEART / MEDIASTINUM: Stable. LUNGS / PLEURA: No significant pulmonary or pleural abnormality. No pneumothorax. ADDITIONAL FINDINGS: No significant additional findings. IMPRESSION: 1. No acute findings. Signer Name: Zuly Pringle MD Signed: 11/18/2018 5:13 AM Workstation Name: [id number]
[2018-11-18 05:29] LABS: Basophils % (Auto) 0.2 % (0.0-1.8); Hematocrit 37.4 % (35.5-45.6); Hemoglobin 12.3 gm/dl (11.8-15.2); Lymphocytes # (Auto) 0.7 K/mm3 (1.2-5.4); Lymphocytes % (Auto) 9.2 % (13.4-35.0); Mean Corpuscular HGB Conc 33 % (32-34); Mean Corpuscular Volume 91 fl (84-94); Monocytes # (Auto) 0.6 K/mm3 (0.0-0.8); Monocytes % (Auto) 8.5 % (0.0-7.3); Platelet Count 290 K/mm3 (140-440); Red Blood Count 4.11 M/mm3 (3.65-5.03); Red Cell Distribution Width 14.2 % (13.2-15.2)
[2018-11-18] MEDS: cefTRIAXone/NS 1 GM/50 ML 1 GM/50 ML BAG IV SCH (05:45)
[2018-11-18 06:02] LABS: Alanine Aminotransferase 35 units/L (7-56); Albumin 3.7 g/dL (3.9-5); BUN/Creatinine Ratio 19; Blood Urea Nitrogen 13 mg/dL (9-20); Calcium 8.5 mg/dL (8.4-10.2); Hemolysis Index 15
[2018-11-18] MEDS: LORazepam 2 MG/ML VIAL IV PRN ×2 (08:10→11:01)
[2018-11-18] MEDS: IPRATROPIUM/ALBUTEROL SULFATE 3 ML AMPUL.NEB IH SCH ×4 (08:37→20:00)
[2018-11-18] MEDS: BUDESONIDE 0.5 MG/2 ML NEBU IH SCH ×2 (08:37→22:11)
[2018-11-18] MEDS: ARFORMOTEROL 15 MCG/2 ML NEBU IH SCH ×2 (08:38→22:11)
[2018-11-18] MEDS: FAMOTIDINE 20 MG TAB PO SCH ×2 (09:16→21:55)
[2018-11-18] MEDS: FOLIC ACID 1 MG TAB PO SCH (09:16)
[2018-11-18] MEDS: QUEtiapine 200 MG TAB PO SCH ×2 (09:16→23:30)
[2018-11-18] MEDS: ENOXAPARIN 40 MG/0.4 ML INJ SUB-Q SCH (09:16)
[2018-11-18] MEDS: MULTIVITAMINS ,THERAPEUTIC TAB PO SCH (09:16)
[2018-11-18] MEDS: THIAMINE 100 MG TAB PO SCH (09:17)
[2018-11-18] MEDS: AZITHROMYCIN 500 MG in SODIUM CHLORIDE 0.9% 250ML 250 ML IV SCH (11:05)
--- NOTE | 2018-11-18 13:21 | Progress Note ---
Assessment and Plan Acute hypoxemic respiratory failure, on mechanical ventilatory support. Acute asthma attack. History of alcohol abuse. Oropharyngeal dysphagia. Metabolic acidosis. Lactic acidosis. Elevated serum alcohols - NGT placed at bedide - continue Seroquel for delirium issues - serum Mg & PO4 levels WNL - continue thiamine and folic acid with daily MVI - scopolamine patch for secretion control - continue CIWA protocol with IV Ativan - continue to wean supplemental oxygen for target O2 sat's > 90% acutely - continue bronchodilators with pulmonary hygiene per RT - Maintenance of sleep-wake cycle, avoid delirium - continue enteral nutritional support at goal rate as tolerated - ST evaluation - Accuchecks with glycemic control efren SSI (While critically ill target blood glucose of 140-180 mg/dL; avoid hypoglycemic) - G.I. & VTE prophylaxis - PT/OT/ROM exercises - mobility protocols for pressure ulcer prophylaxis - Monitor hemodynamics closely - continue other care per attending / other cancer program consultant's - discharge planning ongoing concurrently .... re-evaluate in am & prn ... OK to transfer to medical floor CONDITION: IMPROVED PROGNOSIS: GUARDED CODE STATUS: FULL CODE Subjective Date of service: 11/18/18 Principal diagnosis: Ac. hypoxemic resp failure; Ac. asthma exacerbation; EtOH abuse; Dysphagia Interval history: Patient is seen today for: Acute hypoxemic respiratory failure; Acute asthma attack; History of alcohol abuse; Oropharyngeal dysphagia; Metabolic acidosis; Lactic acidosis; Elevated serum alcohol level Seen and examined at bedside; 24hour events reviewed; nursing and respiratory care staff consulted; no adverse overnight events reported to me; resting peacefully in bed; Objective Vital Signs - 12hr 11/18/18 11/18/18 11/18/18 01:31 01:45 02:00 Temperature Pulse Rate 98 H 91 H Pulse Rate [ Anterior Bilateral Throughout] Pulse Rate [ Bilateral Throughout] Pulse Rate [ 67 From Monitor] Respiratory 25 H 28 H 17 Rate Respiratory Rate [Anterior Bilateral Throughout] Respiratory Rate [Bilateral Throughout] Blood Pressure 180/103 159/89 O2 Sat by Pulse 97 99 98 Oximetry 11/18/18 11/18/18 11/18/18 02:01 02:15 02:31 Temperature Pulse Rate 67 75 102 H Pulse Rate [ Anterior Bilateral Throughout] Pulse Rate [ Bilateral Throughout] Pulse Rate [ From Monitor] Respiratory 17 19 24 Rate Respiratory Rate [Anterior Bilateral Throughout] Respiratory Rate [Bilateral Throughout] Blood Pressure 144/99 164/96 140/100 O2 Sat by Pulse 98 99 98 Oximetry 11/18/18 11/18/18 11/18/18 02:45 03:01 03:15 Temperature Pulse Rate 56 L 65 69 Pulse Rate [ Anterior Bilateral Throughout] Pulse Rate [ Bilateral Throughout] Pulse Rate [ From Monitor] Respiratory 35 H 23 22 Rate Respiratory Rate [Anterior Bilateral Throughout] Respiratory Rate [Bilateral Throughout] Blood Pressure 144/99 155/121 155/121 O2 Sat by Pulse 99 100 100 Oximetry 11/18/18 11/18/18 11/18/18 03:31 03:45 04:00 Temperature 97.8 F Pulse Rate 70 68 Pulse Rate [ Anterior Bilateral Throughout] Pulse Rate [ Bilateral Throughout] Pulse Rate [ 79 From Monitor] Respiratory 31 H 30 H 22 Rate Respiratory Rate [Anterior Bilateral Throughout] Respiratory Rate [Bilateral Throughout] Blood Pressure 155/121 145/113 O2 Sat by Pulse 99 100 100 Oximetry 11/18/18 11/18/18 11/18/18 04:01 04:15 04:22 Temperature Pulse Rate 79 85 74 Pulse Rate [ Anterior Bilateral Throughout] Pulse Rate [ Bilateral Throughout] Pulse Rate [ From Monitor] Respiratory 28 H 25 H Rate Respiratory Rate [Anterior Bilateral Throughout] Respiratory Rate [Bilateral Throughout] Blood Pressure 145/113 145/113 155/102 O2 Sat by Pulse 100 98 Oximetry 11/18/18 11/18/18 11/18/18 04:30 04:45 05:01 Temperature Pulse Rate 94 H 103 H 80 Pulse Rate [ Anterior Bilateral Throughout] Pulse Rate [ Bilateral Throughout] Pulse Rate [ From Monitor] Respiratory 30 H 27 H 19 Rate Respiratory Rate [Anterior Bilateral Throughout] Respiratory Rate [Bilateral Throughout] Blood Pressure 149/104 149/104 144/98 O2 Sat by Pulse 100 94 Oximetry 11/18/18 11/18/18 11/18/18 05:15 05:30 05:45 Temperature Pulse Rate 74 70 73 Pulse Rate [ Anterior Bilateral Throughout] Pulse Rate [ Bilateral Throughout] Pulse Rate [ From Monitor] Respiratory 19 17 17 Rate Respiratory Rate [Anterior Bilateral Throughout] Respiratory Rate [Bilateral Throughout] Blood Pressure 144/98 151/106 151/106 O2 Sat by Pulse Oximetry 11/18/18 11/18/18 11/18/18 06:00 06:15 06:30 Temperature Pulse Rate 67 93 H 72 Pulse Rate [ Anterior Bilateral Throughout] Pulse Rate [ Bilateral Throughout] Pulse Rate [ From Monitor] Respiratory 18 22 17 Rate Respiratory Rate [Anterior Bilateral Throughout] Respiratory Rate [Bilateral Throughout] Blood Pressure 152/105 152/105 147/101 O2 Sat by Pulse 100 100 Oximetry 11/18/18 11/18/18 11/18/18 06:45 07:01 07:15 Temperature Pulse Rate 86 92 H 68 Pulse Rate [ Anterior Bilateral Throughout] Pulse Rate [ Bilateral Throughout] Pulse Rate [ From Monitor] Respiratory 30 H 41 H 29 H Rate Respiratory Rate [Anterior Bilateral Throughout] Respiratory Rate [Bilateral Throughout] Blood Pressure 147/101 161/104 161/104 O2 Sat by Pulse Oximetry 11/18/18 11/18/18 11/18/18 07:30 07:45 08:00 Temperature 98.3 F Pulse Rate 72 67 76 Pulse Rate [ 65 Anterior Bilateral Throughout] Pulse Rate [ 94 H Bilateral Throughout] Pulse Rate [ 76 From Monitor] Respiratory 37 H 31 H 24 Rate Respiratory 17 Rate [Anterior Bilateral Throughout] Respiratory 16 Rate [Bilateral Throughout] Blood Pressure 154/103 154/103 O2 Sat by Pulse 100 100 Oximetry 11/18/18 11/18/18 11/18/18 08:01 08:15 08:30 Temperature Pulse Rate 109 H 71 80 Pulse Rate [ Anterior Bilateral Throughout] Pulse Rate [ Bilateral Throughout] Pulse Rate [ From Monitor] Respiratory 30 H 26 H 18 Rate Respiratory Rate [Anterior Bilateral Throughout] Respiratory Rate [Bilateral Throughout] Blood Pressure 137/101 137/101 139/100 O2 Sat by Pulse 96 99 96 Oximetry 11/18/18 11/18/18 11/18/18 08:41 08:45 09:01 Temperature Pulse Rate 66 84 Pulse Rate [ Anterior Bilateral Throughout] Pulse Rate [ Bilateral Throughout] Pulse Rate [ From Monitor] Respiratory 19 19 Rate Respiratory Rate [Anterior Bilateral Throughout] Respiratory Rate [Bilateral Throughout] Blood Pressure 139/100 140/104 O2 Sat by Pulse 99 98 94 Oximetry 11/18/18 11/18/18 11/18/18 09:15 09:19 09:30 Temperature Pulse Rate 87 78 74 Pulse Rate [ Anterior Bilateral Throughout] Pulse Rate [ Bilateral Throughout] Pulse Rate [ From Monitor] Respiratory 30 H 35 H Rate Respiratory Rate [Anterior Bilateral Throughout] Respiratory Rate [Bilateral Throughout] Blood Pressure 140/104 140/101 133/104 O2 Sat by Pulse 99 93 Oximetry 11/18/18 11/18/18 11/18/18 09:45 10:01 10:15 Temperature Pulse Rate 89 128 H 128 H Pulse Rate [ Anterior Bilateral Throughout] Pulse Rate [ Bilateral Throughout] Pulse Rate [ From Monitor] Respiratory 14 33 H 25 H Rate Respiratory Rate [Anterior Bilateral Throughout] Respiratory Rate [Bilateral Throughout] Blood Pressure 133/104 132/105 132/105 O2 Sat by Pulse 97 91 96 Oximetry 11/18/18 11/18/18 11/18/18 10:30 10:45 11:00 Temperature Pulse Rate 133 H 129 H 122 H Pulse Rate [ Anterior Bilateral Throughout] Pulse Rate [ Bilateral Throughout] Pulse Rate [ From Monitor] Respiratory 30 H 21 22 Rate Respiratory Rate [Anterior Bilateral Throughout] Respiratory Rate [Bilateral Throughout] Blood Pressure 148/109 148/109 152/112 O2 Sat by Pulse 93 Oximetry 11/18/18 11/18/18 11/18/18 11:15 11:30 11:45 Temperature Pulse Rate 136 H 118 H 133 H Pulse Rate [ Anterior Bilateral Throughout] Pulse Rate [ Bilateral Throughout] Pulse Rate [ From Monitor] Respiratory 26 H 22 31 H Rate Respiratory Rate [Anterior Bilateral Throughout] Respiratory Rate [Bilateral Throughout] Blood Pressure 152/112 150/99 150/99 O2 Sat by Pulse 97 98 Oximetry 11/18/18 11/18/18 12:00 12:15 Temperature 98.7 F Pulse Rate 123 H 97 H Pulse Rate [ Anterior Bilateral Throughout] Pulse Rate [ Bilateral Throughout] Pulse Rate [ 119 H From Monitor] Respiratory 26 H 22 Rate Respiratory Rate [Anterior Bilateral Throughout] Respiratory Rate [Bilateral Throughout] Blood Pressure 148/103 148/103 O2 Sat by Pulse 91 99 Oximetry Constitutional: no acute distress, other (middle aged AAM, normocephalic and atraumatic with mildly increased resp effort at rest) Eyes: non-icteric ENT: oropharynx moist, other (extubated) Neck: supple, no lymphadenopathy, no JVD Effort: mildly labored Ascultation: Bilateral: diminished breath sounds, rhonchi (scant) Percussion: Bilateral: not dull Cardiovascular: regular rate and rhythm Gastrointestinal: normoactive bowel sounds, soft, non-tender, non-distended Integumentary: normal Extremities: no cyanosis, no edema, pulses normal, no ischemia or petechiae Neurologic: non-focal exam (grossly), pupils equal and round, CN II-XII normal, motor strength normal and Psychiatric: other (unable to assess re: AMS) CBC and BMP: 11/18/18 04:31 11/18/18 04:31 ABG, PT/INR, D-dimer: ABG POC ABG pH 7.453 (7.35-7.45) H 11/17/18 02:38 POC ABG pCO2 40.0 (35-45) 11/17/18 02:38 POC ABG pO2 80 (80-105) 11/17/18 02:38 POC ABG HCO3 28.0 (22-26 mml/L) 11/17/18 02:38 POC ABG Total CO2 29 (23-27mmol/L) 11/17/18 02:38 POC ABG O2 Sat 96 11/17/18 02:38 Abnormal lab findings: Abnormal Labs 11/13/18 11/13/18 11/13/18 21:30 21:30 21:30 Lymph % (Auto) [place] % (Auto) Eos % (Auto) 8.2 H Baso % (Auto) 2.3 H Lymph # Eos # 0.7 H Baso # 0.2 H Seg Neutrophils % Seg Neuts % (Manual) Lymphocytes % (Manual) Lymphocytes # (Manual) POC ABG pH POC ABG pCO2 POC ABG pO2 Carbon Dioxide 16 L BUN 8 L Creatinine Glucose POC Glucose Lactic Acid Calcium Magnesium AST Total Creatine Kinase 646 H Albumin Plasma/Serum Alcohol 0.29 H 11/13/18 11/13/18 11/13/18 21:56 22:48 23:22 Lymph % (Auto) [place] % (Auto) Eos % (Auto) Baso % (Auto) Lymph # Eos # Baso # Seg Neutrophils % Seg Neuts % (Manual) Lymphocytes % (Manual) Lymphocytes # (Manual) POC ABG pH 7.312 L POC ABG pCO2 POC ABG pO2 > 400 H Carbon Dioxide BUN Creatinine Glucose POC Glucose Lactic Acid 3.70 H* 4.30 H* Calcium Magnesium AST Total Creatine Kinase Albumin Plasma/Serum Alcohol 11/13/18 11/14/18 11/14/18 23:51 00:51 01:49 Lymph % (Auto) [place] % (Auto) Eos % (Auto) Baso % (Auto) Lymph # Eos # Baso # Seg Neutrophils % Seg Neuts % (Manual) Lymphocytes % (Manual) Lymphocytes # (Manual) POC ABG pH POC ABG pCO2 POC ABG pO2 Carbon Dioxide BUN Creatinine Glucose POC Glucose Lactic Acid 4.10 H* 3.80 H* Calcium Magnesium AST Total Creatine Kinase 623 H Albumin Plasma/Serum Alcohol 11/14/18 11/14/18 11/14/18 01:49 03:41 03:41 Lymph % (Auto) [place] % (Auto) Eos % (Auto) Baso % (Auto) Lymph # Eos # Baso # Seg Neutrophils % Seg Neuts % (Manual) 96.0 H Lymphocytes % (Manual) 4.0 L Lymphocytes # (Manual) 0.3 L POC ABG pH POC ABG pCO2 POC ABG pO2 Carbon Dioxide 16 L BUN Creatinine Glucose 102 H POC Glucose Lactic Acid 3.40 H* Calcium 7.0 L D Magnesium AST Total Creatine Kinase Albumin Plasma/Serum Alcohol 11/14/18 11/14/18 11/14/18 03:41 05:08 05:12 Lymph % (Auto) [place] % (Auto) Eos % (Auto) Baso % (Auto) Lymph # Eos # Baso # Seg Neutrophils % Seg Neuts % (Manual) Lymphocytes % (Manual) Lymphocytes # (Manual) POC ABG pH 7.266 L POC ABG pCO2 POC ABG pO2 Carbon Dioxide BUN Creatinine Glucose POC Glucose Lactic Acid 3.30 H* 3.10 H* Calcium Magnesium AST Total Creatine Kinase Albumin Plasma/Serum Alcohol 11/14/18 11/14/18 11/14/18 07:08 07:31 15:47 Lymph % (Auto) [place] % (Auto) Eos % (Auto) Baso % (Auto) Lymph # Eos # Baso # Seg Neutrophils % Seg Neuts % (Manual) Lymphocytes % (Manual) Lymphocytes # (Manual) POC ABG pH POC ABG pCO2 POC ABG pO2 113 H Carbon Dioxide BUN Creatinine Glucose POC Glucose Lactic Acid 2.90 H* Calcium Magnesium AST Total Creatine Kinase 599 H Albumin Plasma/Serum Alcohol 11/15/18 11/15/18 11/15/18 03:48 04:33 13:20 Lymph % (Auto) [place] % (Auto) Eos % (Auto) Baso % (Auto) Lymph # Eos # Baso # Seg Neutrophils % Seg Neuts % (Manual) Lymphocytes % (Manual) Lymphocytes # (Manual) POC ABG pH 7.468 H POC ABG pCO2 33.5 L POC ABG pO2 75 L Carbon Dioxide BUN Creatinine Glucose 177 H POC Glucose 150 H Lactic Acid Calcium 7.9 L Magnesium AST Total Creatine Kinase Albumin Plasma/Serum Alcohol 11/16/18 11/16/18 11/16/18 04:54 15:07 18:00 Lymph % (Auto) [place] % (Auto) Eos % (Auto) Baso % (Auto) Lymph # Eos # Baso # Seg Neutrophils % Seg Neuts % (Manual) Lymphocytes % (Manual) Lymphocytes # (Manual) POC ABG pH POC ABG pCO2 56.4 H POC ABG pO2 Carbon Dioxide BUN Creatinine Glucose POC Glucose 137 H Lactic Acid Calcium Magnesium 3.10 H AST Total Creatine Kinase Albumin Plasma/Serum Alcohol 11/16/18 11/17/18 11/17/18 23:40 02:38 04:14 Lymph % (Auto) 5.9 L [place] % (Auto) 10.3 H Eos % (Auto) Baso % (Auto) Lymph # 0.4 L Eos # Baso # Seg Neutrophils % 83.7 H Seg Neuts % (Manual) Lymphocytes % (Manual) Lymphocytes # (Manual) POC ABG pH 7.453 H POC ABG pCO2 POC ABG pO2 Carbon Dioxide BUN Creatinine Glucose POC Glucose 152 H Lactic Acid Calcium Magnesium AST Total Creatine Kinase Albumin Plasma/Serum Alcohol 11/17/18 11/17/18 11/17/18 04:14 05:39 17:32 Lymph % (Auto) [place] % (Auto) Eos % (Auto) Baso % (Auto) Lymph # Eos # Baso # Seg Neutrophils % Seg Neuts % (Manual) Lymphocytes % (Manual) Lymphocytes # (Manual) POC ABG pH POC ABG pCO2 POC ABG pO2 Carbon Dioxide BUN Creatinine 0.7 L Glucose 147 H POC Glucose 138 H 130 H Lactic Acid Calcium 8.0 L Magnesium AST Total Creatine Kinase Albumin Plasma/Serum Alcohol 11/18/18 11/18/18 11/18/18 04:31 04:31 04:41 Lymph % (Auto) 9.2 L [place] % (Auto) 8.5 H Eos % (Auto) Baso % (Auto) Lymph # 0.7 L Eos # Baso # Seg Neutrophils % 82.1 H Seg Neuts % (Manual) Lymphocytes % (Manual) Lymphocytes # (Manual) POC ABG pH POC ABG pCO2 POC ABG pO2 Carbon Dioxide BUN Creatinine 0.7 L Glucose 125 H POC Glucose 116 H Lactic Acid Calcium Magnesium AST 67 H Total Creatine Kinase Albumin 3.7 L Plasma/Serum Alcohol Allied health notes reviewed: nursing
[2018-11-18] MEDS ORDERED: ALBUTEROL 2.5 MG/3 ML NEBU IH PRN (14:24)
--- NOTE | 2018-11-18 14:39 | Progress Note ---
Assessment and Plan Assessment and plan: - Patient Problems (1) Acute respiratory failure with hypoxia Current Visit: Yes Status: Acute Plan to address problem: Self extubated, on Ventimas Doing well. (2) Status asthmaticus Current Visit: Yes Status: Acute Qualifiers: Asthma severity: severe Asthma persistence: persistent Qualified Code(s): J45.52 - Severe persistent asthma with status asthmaticus Plan to address problem: Cont neb treatments IV steroids Improved Needs neb treatments and steroids (3) EtOH dependence Current Visit: Yes Status: Chronic Plan to address problem: Cont Ciwa protocol and IV fluids improving MH consult (4) Delirium tremens/ Acute Metabolic Encephalopathy secondary to ETOH withdrawal Current Visit: Yes Status: Acute Plan to address problem: Cont CIWA protocol (5) HTN (hypertension) Current Visit: Yes Status: Chronic Qualifiers: Hypertension type: essential hypertension Qualified Code(s): I10 - Essential (primary) hypertension Plan to address problem: Cont antihypertensives (6) Oropharyngeal Dysphagia Speech Eval (7) Lactic Acidosis Improving (8) Metabolic Acidosis Improving (9)DVT prophylaxis Current Visit: Yes Status: Acute Plan to address problem: On Lovenox and GI prophylaxis Ok to transfer to the floor. History Interval history: Patient seen and examined, remains on venturi mask, and on restraints due to a gitation and confusion Hospitalist Physical - Physical exam Narrative exam: General appearance: Present: mild distress, Agitated, well-nourished - EENT Eyes: PERRL, EOM intact ENT: hearing intact, clear oral mucosa Ears: bilateral: normal - Neck Neck: supple, normal ROM - Respiratory Respiratory effort: normal Respiratory: bilateral: rhonchi, - Breasts Breasts: normal - Cardiovascular Heart rate: 88 Rhythm: regular Heart Sounds: Present: S1 & S2. Absent: gallop, rub Extremities: pulses intact, No edema, normal color, Full ROM - Gastrointestinal General gastrointestinal: Present: soft, non-tender, non-distended, normal bowel sounds Rectal Exam: deferred - Genitourinary Male genitourinary: normal - Integumentary Integumentary: clear, warm, dry - Musculoskeletal Musculoskeletal: 1, strength equal bilaterally - Neurologic Neurologic: moves all extremities, Intermittently altered - Psychiatric Psychiatric: agitated - Constitutional Vitals: Temp Pulse Resp BP Pulse Ox 98.7 F 97 H 22 148/103 99 11/18/18 12:00 11/18/18 12:15 11/18/18 12:15 11/18/18 12:15 11/18/18 12:15 General appearance: Present: mild distress, well-nourished Results - Labs CBC & Chem 7: 11/18/18 04:31 11/18/18 04:31 Labs: Laboratory Last Values WBC 7.4 K/mm3 (4.5-11.0) 11/18/18 04:31 RBC 4.11 M/mm3 (3.65-5.03) 11/18/18 04:31 Hgb 12.3 gm/dl (11.8-15.2) 11/18/18 04:31 Hct 37.4 % (35.5-45.6) 11/18/18 04:31 MCV 91 fl (84-94) 11/18/18 04:31 MCH 30 pg (28-32) 11/18/18 04:31 MCHC 33 % (32-34) 11/18/18 04:31 RDW 14.2 % (13.2-15.2) 11/18/18 04:31 Plt Count 290 K/mm3 (140-440) 11/18/18 04:31 Lymph % (Auto) 9.2 % (13.4-35.0) L 11/18/18 04:31 [place] % (Auto) 8.5 % (0.0-7.3) H 11/18/18 04:31 Eos % (Auto) 0.0 % (0.0-4.3) 11/18/18 04:31 Baso % (Auto) 0.2 % (0.0-1.8) 11/18/18 04:31 Lymph # 0.7 K/mm3 (1.2-5.4) L 11/18/18 04:31 [place] # 0.6 K/mm3 (0.0-0.8) 11/18/18 04:31 Eos # 0.0 K/mm3 (0.0-0.4) 11/18/18 04:31 Baso # 0.0 K/mm3 (0.0-0.1) 11/18/18 04:31 Add Manual Diff Complete 11/14/18 03:41 Total Counted 100 11/14/18 03:41 Seg Neutrophils % 82.1 % (40.0-70.0) H 11/18/18 04:31 Seg Neuts % (Manual) 96.0 % (40.0-70.0) H 11/14/18 03:41 Band Neutrophils % 0 % 11/14/18 03:41 Lymphocytes % (Manual) 4.0 % (13.4-35.0) L 11/14/18 03:41 Reactive Lymphs % (Man) 0 % 11/14/18 03:41 Monocytes % (Manual) 0 % (0.0-7.3) 11/14/18 03:41 Eosinophils % (Manual) 0 % (0.0-4.3) 11/14/18 03:41 Basophils % (Manual) 0 % (0.0-1.8) 11/14/18 03:41 Metamyelocytes % 0 % 11/14/18 03:41 Myelocytes % 0 % 11/14/18 03:41 Promyelocytes % 0 % 11/14/18 03:41 Blast Cells % 0 % 11/14/18 03:41 Nucleated RBC % Not Reportable 11/14/18 03:41 Seg Neutrophils # 6.0 K/mm3 (1.8-7.7) 11/18/18 04:31 Seg Neutrophils # Man 7.6 K/mm3 (1.8-7.7) 11/14/18 03:41 Band Neutrophils # 0.0 K/mm3 11/14/18 03:41 Lymphocytes # (Manual) 0.3 K/mm3 (1.2-5.4) L 11/14/18 03:41 Abs React Lymphs (Man) 0.0 K/mm3 11/14/18 03:41 Monocytes # (Manual) 0.0 K/mm3 (0.0-0.8) 11/14/18 03:41 Eosinophils # (Manual) 0.0 K/mm3 (0.0-0.4) 11/14/18 03:41 Basophils # (Manual) 0.0 K/mm3 (0.0-0.1) 11/14/18 03:41 Metamyelocytes # 0.0 K/mm3 11/14/18 03:41 Myelocytes # 0.0 K/mm3 11/14/18 03:41 Promyelocytes # 0.0 K/mm3 11/14/18 03:41 Blast Cells # 0.0 K/mm3 11/14/18 03:41 WBC Morphology Not Reportable 11/14/18 03:41 Hypersegmented Neuts Not Reportable 11/14/18 03:41 Hyposegmented Neuts Not Reportable 11/14/18 03:41 Hypogranular Neuts Not Reportable 11/14/18 03:41 Smudge Cells Not Reportable 11/14/18 03:41 Toxic Granulation Not Reportable 11/14/18 03:41 Toxic Vacuolation Not Reportable 11/14/18 03:41 Dohle Bodies Not Reportable 11/14/18 03:41 Pelger-Huet Anomaly Not Reportable 11/14/18 03:41 [place] Rods Not Reportable 11/14/18 03:41 Platelet Estimate Consistent w auto 11/14/18 03:41 Clumped Platelets Not Reportable 11/14/18 03:41 Plt Clumps, EDTA Not Reportable 11/14/18 03:41 Large Platelets Not Reportable 11/14/18 03:41 Giant Platelets Not Reportable 11/14/18 03:41 Platelet Satelliting Not Reportable 11/14/18 03:41 Plt Morphology Comment Not Reportable 11/14/18 03:41 RBC Morphology Normal 11/14/18 03:41 Dimorphic RBCs Not Reportable 11/14/18 03:41 Polychromasia Not Reportable 11/14/18 03:41 Hypochromasia Not Reportable 11/14/18 03:41 Poikilocytosis Not Reportable 11/14/18 03:41 Anisocytosis Not Reportable 11/14/18 03:41 Microcytosis Not Reportable 11/14/18 03:41 Macrocytosis Not Reportable 11/14/18 03:41 Spherocytes Not Reportable 11/14/18 03:41 Pappenheimer Bodies Not Reportable 11/14/18 03:41 Sickle Cells Not Reportable 11/14/18 03:41 Target Cells Not Reportable 11/14/18 03:41 Tear Drop Cells Not Reportable 11/14/18 03:41 Ovalocytes Not Reportable 11/14/18 03:41 Helmet Cells Not Reportable 11/14/18 03:41 [place] Bodies Not Reportable 11/14/18 03:41 [place] Rings Not Reportable 11/14/18 03:41 [place] Cells Not Reportable 11/14/18 03:41 Bite Cells Not Reportable 11/14/18 03:41 Crenated Cell Not Reportable 11/14/18 03:41 Elliptocytes Not Reportable 11/14/18 03:41 Acanthocytes (Spur) Not Reportable 11/14/18 03:41 Rouleaux Not Reportable 11/14/18 03:41 Hemoglobin C Crystals Not Reportable 11/14/18 03:41 Schistocytes Not Reportable 11/14/18 03:41 Malaria parasites Not Reportable 11/14/18 03:41 Neptali Bodies Not Reportable 11/14/18 03:41 Hem Pathologist Commnt No 11/14/18 03:41 POC ABG pH 7.453 (7.35-7.45) H 11/17/18 02:38 POC ABG pCO2 40.0 (35-45) 11/17/18 02:38 POC ABG pO2 80 (80-105) 11/17/18 02:38 POC ABG HCO3 28.0 (22-26 mml/L) 11/17/18 02:38 POC ABG Total CO2 29 (23-27mmol/L) 11/17/18 02:38 POC ABG O2 Sat 96 11/17/18 02:38 POC ABG Base Excess 4 ((-2) - (+3)mmol/L) 11/17/18 02:38 FiO2 40 % 11/17/18 02:38 Sodium 141 mmol/L (137-145) 11/18/18 04:31 Potassium 4.2 mmol/L (3.6-5.0) 11/18/18 04:31 Chloride 103.1 mmol/L (98-107) 11/18/18 04:31 Carbon Dioxide 26 mmol/L (22-30) 11/18/18 04:31 Anion Gap 16 mmol/L 11/18/18 04:31 BUN 13 mg/dL (9-20) 11/18/18 04:31 Creatinine 0.7 mg/dL (0.8-1.5) L 11/18/18 04:31 Estimated GFR > 60 ml/min 11/18/18 04:31 BUN/Creatinine Ratio 19 % 11/18/18 04:31 Glucose 125 mg/dL (75-100) H 11/18/18 04:31 POC Glucose 116 (70-105) H 11/18/18 04:41 Lactic Acid 1.60 mmol/L (0.7-2.0) 11/16/18 16:15 Calcium 8.5 mg/dL (8.4-10.2) 11/18/18 04:31 Phosphorus 3.10 mg/dL (2.5-4.5) 11/16/18 15:07 Magnesium 3.10 mg/dL (1.7-2.3) H 11/16/18 15:07 Total Bilirubin 0.60 mg/dL (0.1-1.2) 11/18/18 04:31 AST 67 units/L (5-40) H 11/18/18 04:31 ALT 35 units/L (7-56) 11/18/18 04:31 Alkaline Phosphatase 48 units/L (35-129) 11/18/18 04:31 Total Creatine Kinase 599 units/L (55-170) H 11/14/18 07:08 CK-MB (CK-2) 3.2 ng/mL (0.0-4.0) 11/14/18 07:08 CK-MB (CK-2) Rel Index 0.5 (0-4) 11/14/18 07:08 Troponin T < 0.010 ng/mL (0.00-0.029) 11/14/18 07:08 C-Reactive Protein 0.20 mg/dL (0.00-1.30) 11/14/18 Unknown Total Protein 6.8 g/dL (6.3-8.2) 11/18/18 04:31 Albumin 3.7 g/dL (3.9-5) L 11/18/18 04:31 Albumin/Globulin Ratio 1.2 % 11/18/18 04:31 Urine Color Straw (Yellow) 11/13/18 22:42 Urine Turbidity Clear (Clear) 11/13/18 22:42 Urine pH 5.0 (5.0-7.0) 11/13/18 22:42 Ur Specific [place] 1.009 (1.003-1.030) 11/13/18 22:42 Urine Protein <15 mg/dl mg/dL (Negative) 11/13/18 22:42 Urine Glucose (UA) Neg mg/dL (Negative) 11/13/18 22:42 Urine Ketones Tr mg/dL (Negative) 11/13/18 22:42 Urine Blood Sm (Negative) 11/13/18 22:42 Urine Nitrite Neg (Negative) 11/13/18 22:42 Urine Bilirubin Neg (Negative) 11/13/18 22:42 Urine Urobilinogen < 2.0 mg/dL (<2.0) 11/13/18 22:42 Ur Leukocyte Esterase Neg (Negative) 11/13/18 22:42 Urine WBC (Auto) 1.0 /HPF (0.0-6.0) 11/13/18 22:42 Urine RBC (Auto) 1.0 /HPF (0.0-6.0) 11/13/18 22:42 U Epithel Cells (Auto) < 1.0 /HPF (0-13.0) 11/13/18 22:42 Urine Opiates Screen Presumptive negative 11/13/18 22:42 Urine Methadone Screen Presumptive negative 11/13/18 22:42 Ur Barbiturates Screen Presumptive negative 11/13/18 22:42 Ur Phencyclidine Scrn Presumptive negative 11/13/18 22:42 Ur Amphetamines Screen Presumptive negative 11/13/18 22:42 U Benzodiazepines Scrn Presumptive negative 11/13/18 22:42 Urine Cocaine Screen Presumptive negative 11/13/18 22:42 U Marijuana (THC) Screen Presumptive negative 11/13/18 22:42 Drugs of Abuse Note Disclamer 11/13/18 22:42 Plasma/Serum Alcohol 0.29 % (0-0.07) H 11/13/18 21:30 Active Medications - Current Medications Current Medications: Generic Name Dose Route Start Last Admin Trade Name Freq PRN Reason Stop Dose Admin Acetaminophen 650 mg 11/14/18 01:17 11/16/18 16:44 Tylenol PO 650 mg Q4H PRN Administration Pain MILD(1-3)/Fever >100.5/HENRY Albuterol 2.5 mg 11/17/18 13:55 Proventil IH Q6H PRN Dyspnea Albuterol 2.5 mg 11/18/18 14:24 Proventil IH Q4HRT PRN Shortness Of Breath Albuterol/Ipratropium 1 ampul 11/17/18 16:00 11/18/18 12:33 Duoneb *Not For Prn Use* IH Not Given QIDRT [facility] Lipase/Protease/Amylase 1 each 11/14/18 13:01 Jm Gabriel 10,500 Unit FEEDTUBE PRN PRN For Clogged Feeding Tube Arformoterol Tartrate 15 mcg 11/14/18 20:00 11/18/18 08:38 Brovana Nebu IH 15 mcg Q12HRT DANIELLE Administration Budesonide 0.5 mg 11/14/18 20:00 11/18/18 08:37 Pulmicort IH 0.5 mg Q12HRT DANIELLE Administration Chlordiazepoxide HCl 50 mg 11/18/18 15:00 Librium PO 11/19/18 07:01 Q8H DANIELLE Chlordiazepoxide HCl 25 mg 11/19/18 15:00 Librium PO 11/20/18 07:01 Q8H DANIELLE Chlordiazepoxide HCl 25 mg 11/20/18 22:00 Librium PO 11/21/18 10:01 BID DANIELLE Clonidine HCl 0.3 mg 11/17/18 14:00 11/17/18 13:29 Catapres-Tts Patch TD 0.3 mg [place] DANIELLE Administration Enoxaparin Sodium 40 mg 11/14/18 10:00 11/18/18 09:16 Lovenox SUB-Q 40 mg QDAY@1000 DANIELLE Administration Famotidine 20 mg 11/18/18 10:00 11/18/18 09:16 Pepcid PO 20 mg BID DANIELLE Administration Folic Acid 1 mg 11/16/18 15:00 11/18/18 09:16 Folvite PO 1 mg QDAY DANIELLE Administration Haloperidol Lactate 5 mg 11/15/18 14:38 11/18/18 11:50 Haldol IV 5 mg Q1HR PRN Administration Unrespon. to mult. doses BZD's Hydralazine HCl 10 mg 11/17/18 12:52 11/18/18 09:19 Apresoline IV 10 mg Q3H PRN Administration Blood Pressure Hydrophilic Ointment 1 applic 11/14/18 02:24 Vaseline Lip Therapy TP Q2HR PRN Dry Lips Lorazepam 2 mg 11/15/18 14:38 11/18/18 11:01 Ativan IV 2 mg Q1HR PRN Administration RICH-Justin 8-15 Lorazepam 4 mg 11/15/18 14:38 11/17/18 12:24 Ativan IV 4 mg Q1HR PRN Administration CIWA-Ar 16-25 Methylprednisolone Sodium Succinate 40 mg 11/18/18 22:00 Solu-Medrol IV 11/19/18 23:59 Q12HR DANIELLE Multi-Ingred Cream/Lotion/Oil/Oint 1 applic 11/14/18 02:24 Artificial Tears Ophth Oint OU Q4HR PRN Dry Eye(s) Multivitamins 1 each 11/16/18 15:00 11/18/18 09:16 Theragran Tab PO 1 each QDAY DANIELLE Administration Ondansetron HCl 4 mg 11/14/18 01:17 Zofran IV Q8H PRN Nausea And Vomiting Prednisone 10 mg 11/20/18 10:00 Deltasone PO QDAY DANIELLE Quetiapine Fumarate 200 mg 11/16/18 16:00 11/18/18 09:16 Seroquel PO 200 mg BID DANIELLE Administration Scopolamine 1 each 11/16/18 16:00 11/16/18 16:01 Transderm-Scop TD 1 each Q3D DANIELLE Administration Simple Syrup 15 ml 11/14/18 13:01 Simple Syrup FEEDTUBE PRN PRN Hypoglycemia Simple Syrup 30 ml 11/14/18 13:01 Simple Syrup FEEDTUBE PRN PRN Hypoglycemia Sodium Bicarbonate 325 mg 11/14/18 13:01 Sodium Bicarbonate FEEDTUBE PRN PRN For Clogged Feeding Tube Sodium Chloride 10 ml 11/14/18 10:00 11/18/18 11:01 Sodium Chloride Flush Syringe 10 Ml IV Not Given BID DANIELLE Sodium Chloride 10 ml 11/14/18 01:17 11/17/18 05:01 Sodium Chloride Flush Syringe 10 Ml IV 10 ml PRN PRN Administration LINE FLUSH Thiamine HCl 100 mg 11/16/18 15:00 11/18/18 09:17 Vitamin B-1 PO 100 mg QDAY DANIELLE Administration Nutrition/Malnutrition Assess - Dietary Evaluation Nutrition/Malnutrition Findings: Nutrition Notes Start: 11/14/18 12:25 Freq: Status: Active Protocol: Document 11/18/18 10:52 LM (Rec: 11/18/18 11:09 LM -[email or web address]) Nutrition Notes Initial or Follow up Reassessment Current Diagnosis Hypertension,Respiratory Failure Other Pertinent Diagnosis Asthma, ETOH abuse, dysphagia Current Diet Vital AF 1.2 at 60 ml/hr Labs/Tests Cr 0.7 BG 125 Pertinent Medications Reviewed Height 5 ft 7 in Weight 64.5 kg [place] Body Weight (kg) 67.27 BMI 22.2 Weight change and time frame Wt change noted Subjective/Other Information Vital AF running at 20 ml/hr at time of visit. Pt is tolerating TF. Percent of energy/protein needs met: 32%/47% Burn Absent Trauma Absent Minimum of two criteria No #1 Nutrition Diagnosis Inadequate oral intake Diagnosis Progress(for reassessment Continues documentation) Is patient on ventilator? Yes Is Patient Ambulatory and/or Out of Bed No REE-(Mclean-St. Jeor-confined to bed) 1824.776 Calculation Used for Recommendations [facility]clean-St Jeor Additional Notes Pro 77-129g (1.2-2.0g/kg) Fluid 1ml/kcal Nutrition Intervention Change Diet Order: Continue TF Nutrition Support: Vital AF 1.2 at 60 ml/hr Flush 100 ml q4h Kcal 1,728 Protein (gm) 108 Fluid (mL) 1,168 Goal #1 TF tolerance Goal #2 Meet at least 75% of energy and protein needs Anticipated Discharge Needs: Unable to determine Follow-Up By: 11/27/18 Additional Comments FU for TF tolerance
[2018-11-18] MEDS: chlordiazePOXIDE 25 MG CAP PO SCH ×2 (15:04→22:02)
[2018-11-18] MEDS: methylPREDNISolone Sod Succinate 40 MG/1 ML INJ IV SCH (21:55)
[2018-11-19] MEDS: chlordiazePOXIDE 25 MG CAP PO SCH ×4 (06:28→23:47)
--- NOTE | 2018-11-19 08:15 | XRay Report ---
CHEST 1 VIEW INDICATION: follow up respiratory failure. COMPARISON: 11/18/2018 at 0212 hours FINDINGS: Support devices: Nasogastric tube is been removed Heart: Within normal limits. Lungs/Pleura: Minor airspace opacity is identified at the right lung base which probably represents a telectatic changes. Otherwise, the lungs are clear. No pleural effusion or pneumothorax. Additional findings: None. IMPRESSION: Subtle right basilar opacity most likely representing atelectasis. No acute process. Signer Name: Carlos A Ray Jr, MD Signed: 11/19/2018 8:11 AM Workstation Name: [id number]
[2018-11-19] MEDS: ARFORMOTEROL 15 MCG/2 ML NEBU IH SCH ×2 (09:17→21:07)
[2018-11-19] MEDS: BUDESONIDE 0.5 MG/2 ML NEBU IH SCH ×2 (09:17→21:00)
[2018-11-19] MEDS: IPRATROPIUM/ALBUTEROL SULFATE 3 ML AMPUL.NEB IH SCH ×4 (09:17→21:17)
[2018-11-19] MEDS: MULTIVITAMINS ,THERAPEUTIC TAB PO SCH (11:00)
[2018-11-19] MEDS: methylPREDNISolone Sod Succinate 40 MG/1 ML INJ IV SCH ×2 (11:00→22:59)
[2018-11-19] MEDS: FOLIC ACID 1 MG TAB PO SCH (11:00)
[2018-11-19] MEDS: QUEtiapine 200 MG TAB PO SCH ×2 (11:00→22:58)
[2018-11-19] MEDS: THIAMINE 100 MG TAB PO SCH (11:16)
[2018-11-19] MEDS: ENOXAPARIN 40 MG/0.4 ML INJ SUB-Q SCH (11:16)
[2018-11-19] MEDS: FAMOTIDINE 20 MG TAB PO SCH ×2 (11:18→23:04)
--- NOTE | 2018-11-19 15:37 | Progress Note ---
Assessment and Plan Assessment and plan: (1) Acute respiratory failure with hypoxia Current Visit: Yes Status: Acute Plan to address problem: Self extubated, saturating well on room air (2) Status asthmaticus Current Visit: Yes Status: Acute Qualifiers: Asthma severity: severe Asthma persistence: persistent Qualified Code(s): J45.52 - Severe persistent asthma with status asthmaticus Plan to address problem: Cont neb treatments IV steroids Needs neb treatments and steroids (3) EtOH dependence Current Visit: Yes Status: Chronic Plan to address problem: Cont Ciwa protocol and IV fluids improving MH consult (4) Delirium tremens/ Acute Metabolic Encephalopathy secondary to ETOH withdrawal Current Visit: Yes Status: Acute Plan to address problem: Cont CIWA protocol Markedly improved (5) HTN (hypertension) Current Visit: Yes Status: Chronic Qualifiers: Hypertension type: essential hypertension Qualified Code(s): I10 - Essential (primary) hypertension Plan to address problem: Cont antihypertensives (6) Oropharyngeal Dysphagia Speech Eval, recommended regular diet (7) Lactic Acidosis Improving (8) Metabolic Acidosis Improving (9)DVT prophylaxis Current Visit: Yes Status: Acute Plan to address problem: On Lovenox and GI prophylaxis History Interval history: Patient was seen and evaluated this morning Patient was alert and oriented Patient wants to eat No nursing issues overnight Sitter at the bedside for safety Hospitalist Physical - Physical exam Narrative exam: Not in cardiopulmonary distress. The patient appeared well nourished and normally developed. Vital signs as documented. Head exam is unremarkable. No scleral icterus . Neck is without jugular venous distension, thyromegaly, or carotid bruits. Lungs are clear to auscultation. Cardiac exam reveals regular rate and Rhythm. First and second heart sounds normal. No murmurs, rubs or gallops. Abdominal exam reveals normal bowel sounds, no masses, no organomegaly and no aortic enlargement. Extremities are nonedematous and both femoral and pedal pulses are normal. 3D ARTIST: Alert and oriented 3. No focal weakness. - Constitutional Vitals: Temp Pulse Resp BP Pulse Ox 98.0 F 87 19 135/97 97 11/19/18 12:22 11/19/18 14:21 11/19/18 14:21 11/19/18 12:22 11/19/18 14:21 General appearance: Present: mild distress, well-nourished Results - Labs CBC & Chem 7: 11/18/18 04:31 11/18/18 04:31 Labs: Laboratory Last Values WBC 7.4 K/mm3 (4.5-11.0) 11/18/18 04:31 RBC 4.11 M/mm3 (3.65-5.03) 11/18/18 04:31 Hgb 12.3 gm/dl (11.8-15.2) 11/18/18 04:31 Hct 37.4 % (35.5-45.6) 11/18/18 04:31 MCV 91 fl (84-94) 11/18/18 04:31 MCH 30 pg (28-32) 11/18/18 04:31 MCHC 33 % (32-34) 11/18/18 04:31 RDW 14.2 % (13.2-15.2) 11/18/18 04:31 Plt Count 290 K/mm3 (140-440) 11/18/18 04:31 Lymph % (Auto) 9.2 % (13.4-35.0) L 11/18/18 04:31 Coffee % (Auto) 8.5 % (0.0-7.3) H 11/18/18 04:31 Eos % (Auto) 0.0 % (0.0-4.3) 11/18/18 04:31 Baso % (Auto) 0.2 % (0.0-1.8) 11/18/18 04:31 Lymph # 0.7 K/mm3 (1.2-5.4) L 11/18/18 04:31 Coffee # 0.6 K/mm3 (0.0-0.8) 11/18/18 04:31 Eos # 0.0 K/mm3 (0.0-0.4) 11/18/18 04:31 Baso # 0.0 K/mm3 (0.0-0.1) 11/18/18 04:31 Add Manual Diff Complete 11/14/18 03:41 Total Counted 100 11/14/18 03:41 Seg Neutrophils % 82.1 % (40.0-70.0) H 11/18/18 04:31 Seg Neuts % (Manual) 96.0 % (40.0-70.0) H 11/14/18 03:41 Band Neutrophils % 0 % 11/14/18 03:41 Lymphocytes % (Manual) 4.0 % (13.4-35.0) L 11/14/18 03:41 Reactive Lymphs % (Man) 0 % 11/14/18 03:41 Monocytes % (Manual) 0 % (0.0-7.3) 11/14/18 03:41 Eosinophils % (Manual) 0 % (0.0-4.3) 11/14/18 03:41 Basophils % (Manual) 0 % (0.0-1.8) 11/14/18 03:41 Metamyelocytes % 0 % 11/14/18 03:41 Myelocytes % 0 % 11/14/18 03:41 Promyelocytes % 0 % 11/14/18 03:41 Blast Cells % 0 % 11/14/18 03:41 Nucleated RBC % Not Reportable 11/14/18 03:41 Seg Neutrophils # 6.0 K/mm3 (1.8-7.7) 11/18/18 04:31 Seg Neutrophils # Man 7.6 K/mm3 (1.8-7.7) 11/14/18 03:41 Band Neutrophils # 0.0 K/mm3 11/14/18 03:41 Lymphocytes # (Manual) 0.3 K/mm3 (1.2-5.4) L 11/14/18 03:41 Abs React Lymphs (Man) 0.0 K/mm3 11/14/18 03:41 Monocytes # (Manual) 0.0 K/mm3 (0.0-0.8) 11/14/18 03:41 Eosinophils # (Manual) 0.0 K/mm3 (0.0-0.4) 11/14/18 03:41 Basophils # (Manual) 0.0 K/mm3 (0.0-0.1) 11/14/18 03:41 Metamyelocytes # 0.0 K/mm3 11/14/18 03:41 Myelocytes # 0.0 K/mm3 11/14/18 03:41 Promyelocytes # 0.0 K/mm3 11/14/18 03:41 Blast Cells # 0.0 K/mm3 11/14/18 03:41 WBC Morphology Not Reportable 11/14/18 03:41 Hypersegmented Neuts Not Reportable 11/14/18 03:41 Hyposegmented Neuts Not Reportable 11/14/18 03:41 Hypogranular Neuts Not Reportable 11/14/18 03:41 Smudge Cells Not Reportable 11/14/18 03:41 Toxic Granulation Not Reportable 11/14/18 03:41 Toxic Vacuolation Not Reportable 11/14/18 03:41 Dohle Bodies Not Reportable 11/14/18 03:41 Pelger-Huet Anomaly Not Reportable 11/14/18 03:41 Tyler Rods Not Reportable 11/14/18 03:41 Platelet Estimate Consistent w auto 11/14/18 03:41 Clumped Platelets Not Reportable 11/14/18 03:41 Plt Clumps, EDTA Not Reportable 11/14/18 03:41 Large Platelets Not Reportable 11/14/18 03:41 Giant Platelets Not Reportable 11/14/18 03:41 Platelet Satelliting Not Reportable 11/14/18 03:41 Plt Morphology Comment Not Reportable 11/14/18 03:41 RBC Morphology Normal 11/14/18 03:41 Dimorphic RBCs Not Reportable 11/14/18 03:41 Polychromasia Not Reportable 11/14/18 03:41 Hypochromasia Not Reportable 11/14/18 03:41 Poikilocytosis Not Reportable 11/14/18 03:41 Anisocytosis Not Reportable 11/14/18 03:41 Microcytosis Not Reportable 11/14/18 03:41 Macrocytosis Not Reportable 11/14/18 03:41 Spherocytes Not Reportable 11/14/18 03:41 Pappenheimer Bodies Not Reportable 11/14/18 03:41 Sickle Cells Not Reportable 11/14/18 03:41 Target Cells Not Reportable 11/14/18 03:41 Tear Drop Cells Not Reportable 11/14/18 03:41 Ovalocytes Not Reportable 11/14/18 03:41 Helmet Cells Not Reportable 11/14/18 03:41 Jameson-Speers Bodies Not Reportable 11/14/18 03:41 [place] Rings Not Reportable 11/14/18 03:41 Prole Cells Not Reportable 11/14/18 03:41 Bite Cells Not Reportable 11/14/18 03:41 Crenated Cell Not Reportable 11/14/18 03:41 Elliptocytes Not Reportable 11/14/18 03:41 Acanthocytes (Spur) Not Reportable 11/14/18 03:41 Rouleaux Not Reportable 11/14/18 03:41 Hemoglobin C Crystals Not Reportable 11/14/18 03:41 Schistocytes Not Reportable 11/14/18 03:41 Malaria parasites Not Reportable 11/14/18 03:41 Neptali Bodies Not Reportable 11/14/18 03:41 Hem Pathologist Commnt No 11/14/18 03:41 POC ABG pH 7.453 (7.35-7.45) H 11/17/18 02:38 POC ABG pCO2 40.0 (35-45) 11/17/18 02:38 POC ABG pO2 80 (80-105) 11/17/18 02:38 POC ABG HCO3 28.0 (22-26 mml/L) 11/17/18 02:38 POC ABG Total CO2 29 (23-27mmol/L) 11/17/18 02:38 POC ABG O2 Sat 96 11/17/18 02:38 POC ABG Base Excess 4 ((-2) - (+3)mmol/L) 11/17/18 02:38 FiO2 40 % 11/17/18 02:38 Sodium 141 mmol/L (137-145) 11/18/18 04:31 Potassium 4.2 mmol/L (3.6-5.0) 11/18/18 04:31 Chloride 103.1 mmol/L (98-107) 11/18/18 04:31 Carbon Dioxide 26 mmol/L (22-30) 11/18/18 04:31 Anion Gap 16 mmol/L 11/18/18 04:31 BUN 13 mg/dL (9-20) 11/18/18 04:31 Creatinine 0.7 mg/dL (0.8-1.5) L 11/18/18 04:31 Estimated GFR > 60 ml/min 11/18/18 04:31 BUN/Creatinine Ratio 19 % 11/18/18 04:31 Glucose 125 mg/dL (75-100) H 11/18/18 04:31 POC Glucose 102 (70-105) 11/19/18 11:48 Lactic Acid 1.60 mmol/L (0.7-2.0) 11/16/18 16:15 Calcium 8.5 mg/dL (8.4-10.2) 11/18/18 04:31 Phosphorus 3.10 mg/dL (2.5-4.5) 11/16/18 15:07 Magnesium 3.10 mg/dL (1.7-2.3) H 11/16/18 15:07 Total Bilirubin 0.60 mg/dL (0.1-1.2) 11/18/18 04:31 AST 67 units/L (5-40) H 11/18/18 04:31 ALT 35 units/L (7-56) 11/18/18 04:31 Alkaline Phosphatase 48 units/L (35-129) 11/18/18 04:31 Total Creatine Kinase 599 units/L (55-170) H 11/14/18 07:08 CK-MB (CK-2) 3.2 ng/mL (0.0-4.0) 11/14/18 07:08 CK-MB (CK-2) Rel Index 0.5 (0-4) 11/14/18 07:08 Troponin T < 0.010 ng/mL (0.00-0.029) 11/14/18 07:08 C-Reactive Protein 0.20 mg/dL (0.00-1.30) 11/14/18 Unknown Total Protein 6.8 g/dL (6.3-8.2) 11/18/18 04:31 Albumin 3.7 g/dL (3.9-5) L 11/18/18 04:31 Albumin/Globulin Ratio 1.2 % 11/18/18 04:31 Urine Color Straw (Yellow) 11/13/18 22:42 Urine Turbidity Clear (Clear) 11/13/18 22:42 Urine pH 5.0 (5.0-7.0) 11/13/18 22:42 Ur Specific [place] 1.009 (1.003-1.030) 11/13/18 22:42 Urine Protein <15 mg/dl mg/dL (Negative) 11/13/18 22:42 Urine Glucose (UA) Neg mg/dL (Negative) 11/13/18 22:42 Urine Ketones Tr mg/dL (Negative) 11/13/18 22:42 Urine Blood Sm (Negative) 11/13/18 22:42 Urine Nitrite Neg (Negative) 11/13/18 22:42 Urine Bilirubin Neg (Negative) 11/13/18 22:42 Urine Urobilinogen < 2.0 mg/dL (<2.0) 11/13/18 22:42 Ur Leukocyte Esterase Neg (Negative) 11/13/18 22:42 Urine WBC (Auto) 1.0 /HPF (0.0-6.0) 11/13/18 22:42 Urine RBC (Auto) 1.0 /HPF (0.0-6.0) 11/13/18 22:42 U Epithel Cells (Auto) < 1.0 /HPF (0-13.0) 11/13/18 22:42 Urine Opiates Screen Presumptive negative 11/13/18 22:42 Urine Methadone Screen Presumptive negative 11/13/18 22:42 Ur Barbiturates Screen Presumptive negative 11/13/18 22:42 Ur Phencyclidine Scrn Presumptive negative 11/13/18 22:42 Ur Amphetamines Screen Presumptive negative 11/13/18 22:42 U Benzodiazepines Scrn Presumptive negative 11/13/18 22:42 Urine Cocaine Screen Presumptive negative 11/13/18 22:42 U Marijuana (THC) Screen Presumptive negative 11/13/18 22:42 Drugs of Abuse Note Disclamer 11/13/18 22:42 Plasma/Serum Alcohol 0.29 % (0-0.07) H 11/13/18 21:30 Active Medications - Current Medications Current Medications: Generic Name Dose Route Start Last Admin Trade Name Freq PRN Reason Stop Dose Admin Acetaminophen 650 mg 11/14/18 01:17 11/16/18 16:44 Tylenol PO 650 mg Q4H PRN Administration Pain MILD(1-3)/Fever >100.5/HENRY Albuterol 2.5 mg 11/17/18 13:55 Proventil IH Q6H PRN Dyspnea Albuterol 2.5 mg 11/18/18 14:24 Proventil IH Q4HRT PRN Shortness Of Breath Albuterol/Ipratropium 1 ampul 11/17/18 16:00 11/19/18 14:01 Duoneb *Not For Prn Use* IH Not Given QIDRT DANIELLE Lipase/Protease/Amylase 1 each 11/14/18 13:01 Pancreadarsh Gabriel 10,500 Unit FEEDTUBE PRN PRN For Clogged Feeding Tube Arformoterol Tartrate 15 mcg 11/14/18 20:00 11/19/18 09:17 Brovana Nebu IH Not Given Q12HRT [facility] Budesonide 0.5 mg 11/14/18 20:00 11/19/18 09:17 Pulmicort IH Not Given Q12HRT [facility] Chlordiazepoxide HCl 25 mg 11/19/18 15:00 Librium PO 11/20/18 07:01 Q8H DANIELLE Chlordiazepoxide HCl 25 mg 11/20/18 22:00 Librium PO 11/21/18 10:01 BID [facility] Clonidine HCl 0.3 mg 11/17/18 14:00 11/17/18 13:29 Catapres-Tts Patch TD 0.3 mg [place] [facility] Administration Enoxaparin Sodium 40 mg 11/14/18 10:00 11/19/18 11:16 Lovenox SUB-Q 40 mg QDAY@1000 [facility] Administration Famotidine 20 mg 11/18/18 10:00 11/19/18 11:18 Pepcid PO 20 mg BID [facility] Administration Folic Acid 1 mg 11/16/18 15:00 11/19/18 11:00 Folvite PO 1 mg QDAY [facility] Administration Haloperidol Lactate 5 mg 11/15/18 14:38 11/18/18 16:18 Haldol IV 5 mg Q1HR PRN Administration Unrespon. to mult. doses BZD's Hydralazine HCl 10 mg 11/17/18 12:52 11/18/18 09:19 Apresoline IV 10 mg Q3H PRN Administration Blood Pressure Hydrophilic Ointment 1 applic 11/14/18 02:24 Vaseline Lip Therapy TP Q2HR PRN Dry Lips Lorazepam 2 mg 11/15/18 14:38 11/18/18 11:01 Ativan IV 2 mg Q1HR PRN Administration CIWA-Ar 8-15 Lorazepam 4 mg 11/15/18 14:38 11/17/18 12:24 Ativan IV 4 mg Q1HR PRN Administration CIWA-Ar 16-25 Methylprednisolone Sodium Succinate 40 mg 11/18/18 22:00 11/19/18 11:00 Solu-Medrol IV 11/19/18 23:59 40 mg Q12HR DANIELLE Administration Multi-Ingred Cream/Lotion/Oil/Oint 1 applic 11/14/18 02:24 Artificial Tears Ophth Oint OU Q4HR PRN Dry Eye(s) Multivitamins 1 each 11/16/18 15:00 11/19/18 11:00 Theragran Tab PO 1 each QDAY DANIELLE Administration Ondansetron HCl 4 mg 11/14/18 01:17 Zofran IV Q8H PRN Nausea And Vomiting Prednisone 10 mg 11/20/18 10:00 Deltasone PO QDAY DANIELLE Quetiapine Fumarate 200 mg 11/16/18 16:00 11/19/18 11:00 Seroquel PO 200 mg BID DANIELLE Administration Scopolamine 1 each 11/16/18 16:00 11/16/18 16:01 Transderm-Scop TD 1 each Q3D DANIELLE Administration Simple Syrup 15 ml 11/14/18 13:01 Simple Syrup FEEDTUBE PRN PRN Hypoglycemia Simple Syrup 30 ml 11/14/18 13:01 Simple Syrup FEEDTUBE PRN PRN Hypoglycemia Sodium Bicarbonate 325 mg 11/14/18 13:01 Sodium Bicarbonate FEEDTUBE PRN PRN For Clogged Feeding Tube Sodium Chloride 10 ml 11/14/18 10:00 11/19/18 11:17 Sodium Chloride Flush Syringe 10 Ml IV 10 ml BID DANIELLE Administration Sodium Chloride 10 ml 11/14/18 01:17 11/17/18 05:01 Sodium Chloride Flush Syringe 10 Ml IV 10 ml PRN PRN Administration LINE FLUSH Thiamine HCl 100 mg 11/16/18 15:00 11/19/18 11:16 Vitamin B-1 PO 100 mg QDAY DANIELLE Administration Nutrition/Malnutrition Assess - Dietary Evaluation Nutrition/Malnutrition Findings: Nutrition Notes Start: 11/14/18 12:25 Freq: Status: Active Protocol: Document 11/18/18 10:52 LM (Rec: 11/18/18 11:09 LM [email or web address]) Nutrition Notes Initial or Follow up Reassessment Current Diagnosis Hypertension,Respiratory Failure Other Pertinent Diagnosis Asthma, ETOH abuse, dysphagia Current Diet Vital AF 1.2 at 60 ml/hr Labs/Tests Cr 0.7 BG 125 Pertinent Medications Reviewed Height 5 ft 7 in Weight 64.5 kg [place] Body Weight (kg) 67.27 BMI 22.2 Weight change and time frame Wt change noted Subjective/Other Information Vital AF running at 20 ml/hr at time of visit. Pt is tolerating TF. Percent of energy/protein needs met: 32%/47% Burn Absent Trauma Absent Minimum of two criteria No #1 Nutrition Diagnosis Inadequate oral intake Diagnosis Progress(for reassessment Continues documentation) Is patient on ventilator? Yes Is Patient Ambulatory and/or Out of Bed No REE-([facility]-confined to bed) 4002.762 Calculation Used for Recommendations [facility] Additional Notes Pro 77-129g (1.2-2.0g/kg) Fluid 1ml/kcal Nutrition Intervention Change Diet Order: Continue TF Nutrition Support: Vital AF 1.2 at 60 ml/hr Flush 100 ml q4h Kcal 1,728 Protein (gm) 108 Fluid (mL) 1,168 Goal #1 TF tolerance Goal #2 Meet at least 75% of energy and protein needs Anticipated Discharge Needs: Unable to determine Follow-Up By: 11/27/18 Additional Comments FU for TF tolerance
--- NOTE | 2018-11-19 17:25 | Progress Note ---
Assessment and Plan - Patient Problems (1) Acute respiratory failure with hypoxia Current Visit: Yes Status: Acute (2) EtOH dependence Current Visit: Yes Status: Chronic (3) HTN (hypertension) Current Visit: Yes Status: Chronic Qualifiers: Hypertension type: essential hypertension Qualified Code(s): I10 - Essential (primary) hypertension Subjective Date of service: 11/19/18 Principal diagnosis: Ac. hypoxemic resp failure; Ac. asthma exacerbation; EtOH abuse; Dysphagia Objective Vital Signs - 12hr 11/19/18 11/19/18 11/19/18 06:12 08:39 09:18 Temperature 97.8 F Pulse Rate 55 L Pulse Rate [ From Monitor] Respiratory 18 Rate Blood Pressure 126/93 O2 Sat by Pulse 96 96 98 Oximetry 11/19/18 11/19/18 11/19/18 12:22 14:21 16:07 Temperature 98.0 F 97.6 F Pulse Rate 75 77 Pulse Rate [ 87 From Monitor] Respiratory 18 19 18 Rate Blood Pressure 135/97 123/88 O2 Sat by Pulse 95 97 96 Oximetry Constitutional: no acute distress, other (middle aged AAM, normocephalic and atraumatic with mildly increased resp effort at rest) Eyes: non-icteric ENT: oropharynx moist, other (extubated) Neck: supple, no lymphadenopathy, no JVD Effort: mildly labored Ascultation: Bilateral: diminished breath sounds, rhonchi (scant) Percussion: Bilateral: not dull Cardiovascular: regular rate and rhythm Gastrointestinal: normoactive bowel sounds, soft, non-tender, non-distended Integumentary: normal Extremities: no cyanosis, no edema, pulses normal, no ischemia or petechiae Neurologic: non-focal exam (grossly), pupils equal and round, CN II-XII normal, motor strength normal and Psychiatric: other (unable to assess re: AMS) CBC and BMP: 11/18/18 04:31 11/18/18 04:31 ABG, PT/INR, D-dimer: ABG POC ABG pH 7.453 (7.35-7.45) H 11/17/18 02:38 POC ABG pCO2 40.0 (35-45) 11/17/18 02:38 POC ABG pO2 80 (80-105) 11/17/18 02:38 POC ABG HCO3 28.0 (22-26 mml/L) 11/17/18 02:38 POC ABG Total CO2 29 (23-27mmol/L) 11/17/18 02:38 POC ABG O2 Sat 96 11/17/18 02:38 Abnormal lab findings: Abnormal Labs 11/13/18 11/13/18 11/13/18 21:30 21:30 21:30 Lymph % (Auto) [place] % (Auto) Eos % (Auto) 8.2 H Baso % (Auto) 2.3 H Lymph # Eos # 0.7 H Baso # 0.2 H Seg Neutrophils % Seg Neuts % (Manual) Lymphocytes % (Manual) Lymphocytes # (Manual) POC ABG pH POC ABG pCO2 POC ABG pO2 Carbon Dioxide 16 L BUN 8 L Creatinine Glucose POC Glucose Lactic Acid Calcium Magnesium AST Total Creatine Kinase 646 H Albumin Plasma/Serum Alcohol 0.29 H 11/13/18 11/13/18 11/13/18 21:56 22:48 23:22 Lymph % (Auto) [place] % (Auto) Eos % (Auto) Baso % (Auto) Lymph # Eos # Baso # Seg Neutrophils % Seg Neuts % (Manual) Lymphocytes % (Manual) Lymphocytes # (Manual) POC ABG pH 7.312 L POC ABG pCO2 POC ABG pO2 > 400 H Carbon Dioxide BUN Creatinine Glucose POC Glucose Lactic Acid 3.70 H* 4.30 H* Calcium Magnesium AST Total Creatine Kinase Albumin Plasma/Serum Alcohol 11/13/18 11/14/18 11/14/18 23:51 00:51 01:49 Lymph % (Auto) [place] % (Auto) Eos % (Auto) Baso % (Auto) Lymph # Eos # Baso # Seg Neutrophils % Seg Neuts % (Manual) Lymphocytes % (Manual) Lymphocytes # (Manual) POC ABG pH POC ABG pCO2 POC ABG pO2 Carbon Dioxide BUN Creatinine Glucose POC Glucose Lactic Acid 4.10 H* 3.80 H* Calcium Magnesium AST Total Creatine Kinase 623 H Albumin Plasma/Serum Alcohol 11/14/18 11/14/18 11/14/18 01:49 03:41 03:41 Lymph % (Auto) [place] % (Auto) Eos % (Auto) Baso % (Auto) Lymph # Eos # Baso # Seg Neutrophils % Seg Neuts % (Manual) 96.0 H Lymphocytes % (Manual) 4.0 L Lymphocytes # (Manual) 0.3 L POC ABG pH POC ABG pCO2 POC ABG pO2 Carbon Dioxide 16 L BUN Creatinine Glucose 102 H POC Glucose Lactic Acid 3.40 H* Calcium 7.0 L D Magnesium AST Total Creatine Kinase Albumin Plasma/Serum Alcohol 11/14/18 11/14/18 11/14/18 03:41 05:08 05:12 Lymph % (Auto) [place] % (Auto) Eos % (Auto) Baso % (Auto) Lymph # Eos # Baso # Seg Neutrophils % Seg Neuts % (Manual) Lymphocytes % (Manual) Lymphocytes # (Manual) POC ABG pH 7.266 L POC ABG pCO2 POC ABG pO2 Carbon Dioxide BUN Creatinine Glucose POC Glucose Lactic Acid 3.30 H* 3.10 H* Calcium Magnesium AST Total Creatine Kinase Albumin Plasma/Serum Alcohol 11/14/18 11/14/18 11/14/18 07:08 07:31 15:47 Lymph % (Auto) [place] % (Auto) Eos % (Auto) Baso % (Auto) Lymph # Eos # Baso # Seg Neutrophils % Seg Neuts % (Manual) Lymphocytes % (Manual) Lymphocytes # (Manual) POC ABG pH POC ABG pCO2 POC ABG pO2 113 H Carbon Dioxide BUN Creatinine Glucose POC Glucose Lactic Acid 2.90 H* Calcium Magnesium AST Total Creatine Kinase 599 H Albumin Plasma/Serum Alcohol 11/15/18 11/15/18 11/15/18 03:48 04:33 13:20 Lymph % (Auto) [place] % (Auto) Eos % (Auto) Baso % (Auto) Lymph # Eos # Baso # Seg Neutrophils % Seg Neuts % (Manual) Lymphocytes % (Manual) Lymphocytes # (Manual) POC ABG pH 7.468 H POC ABG pCO2 33.5 L POC ABG pO2 75 L Carbon Dioxide BUN Creatinine Glucose 177 H POC Glucose 150 H Lactic Acid Calcium 7.9 L Magnesium AST Total Creatine Kinase Albumin Plasma/Serum Alcohol 11/16/18 11/16/18 11/16/18 04:54 15:07 18:00 Lymph % (Auto) [place] % (Auto) Eos % (Auto) Baso % (Auto) Lymph # Eos # Baso # Seg Neutrophils % Seg Neuts % (Manual) Lymphocytes % (Manual) Lymphocytes # (Manual) POC ABG pH POC ABG pCO2 56.4 H POC ABG pO2 Carbon Dioxide BUN Creatinine Glucose POC Glucose 137 H Lactic Acid Calcium Magnesium 3.10 H AST Total Creatine Kinase Albumin Plasma/Serum Alcohol 11/16/18 11/17/18 11/17/18 23:40 02:38 04:14 Lymph % (Auto) 5.9 L [place] % (Auto) 10.3 H Eos % (Auto) Baso % (Auto) Lymph # 0.4 L Eos # Baso # Seg Neutrophils % 83.7 H Seg Neuts % (Manual) Lymphocytes % (Manual) Lymphocytes # (Manual) POC ABG pH 7.453 H POC ABG pCO2 POC ABG pO2 Carbon Dioxide BUN Creatinine Glucose POC Glucose 152 H Lactic Acid Calcium Magnesium AST Total Creatine Kinase Albumin Plasma/Serum Alcohol 11/17/18 11/17/18 11/17/18 04:14 05:39 12:54 Lymph % (Auto) [place] % (Auto) Eos % (Auto) Baso % (Auto) Lymph # Eos # Baso # Seg Neutrophils % Seg Neuts % (Manual) Lymphocytes % (Manual) Lymphocytes # (Manual) POC ABG pH POC ABG pCO2 POC ABG pO2 Carbon Dioxide BUN Creatinine 0.7 L Glucose 147 H POC Glucose 138 H 114 H Lactic Acid Calcium 8.0 L Magnesium AST Total Creatine Kinase Albumin Plasma/Serum Alcohol 11/17/18 11/18/18 11/18/18 17:32 04:31 04:31 Lymph % (Auto) 9.2 L [place] % (Auto) 8.5 H Eos % (Auto) Baso % (Auto) Lymph # 0.7 L Eos # Baso # Seg Neutrophils % 82.1 H Seg Neuts % (Manual) Lymphocytes % (Manual) Lymphocytes # (Manual) POC ABG pH POC ABG pCO2 POC ABG pO2 Carbon Dioxide BUN Creatinine 0.7 L Glucose 125 H POC Glucose 130 H Lactic Acid Calcium Magnesium AST 67 H Total Creatine Kinase Albumin 3.7 L Plasma/Serum Alcohol 11/18/18 11/18/18 11/18/18 04:41 11:41 23:32 Lymph % (Auto) [place] % (Auto) Eos % (Auto) Baso % (Auto) Lymph # Eos # Baso # Seg Neutrophils % Seg Neuts % (Manual) Lymphocytes % (Manual) Lymphocytes # (Manual) POC ABG pH POC ABG pCO2 POC ABG pO2 Carbon Dioxide BUN Creatinine Glucose POC Glucose 116 H 131 H 124 H Lactic Acid Calcium Magnesium AST Total Creatine Kinase Albumin Plasma/Serum Alcohol 11/19/18 11/19/18 05:33 16:42 Lymph % (Auto) [place] % (Auto) Eos % (Auto) Baso % (Auto) Lymph # Eos # Baso # Seg Neutrophils % Seg Neuts % (Manual) Lymphocytes % (Manual) Lymphocytes # (Manual) POC ABG pH POC ABG pCO2 POC ABG pO2 Carbon Dioxide BUN Creatinine Glucose POC Glucose 115 H 124 H Lactic Acid Calcium Magnesium AST Total Creatine Kinase Albumin Plasma/Serum Alcohol Chest x-ray: report reviewed (Right basilar opacity.), image reviewed Allied health notes reviewed: nursing
[2018-11-19] MEDS: SCOPOLAMINE TRANSDERMAL PATCH 72 HR TD SCH (17:33)
[2018-11-20] MEDS: chlordiazePOXIDE 25 MG CAP PO SCH ×2 (06:16→22:55)
[2018-11-20] MEDS: ACETAMINOPHEN 325 MG TAB PO PRN ×2 (06:16→23:31)
[2018-11-20] MEDS: ARFORMOTEROL 15 MCG/2 ML NEBU IH SCH ×2 (08:14→20:26)
[2018-11-20] MEDS: BUDESONIDE 0.5 MG/2 ML NEBU IH SCH ×2 (08:14→20:26)
[2018-11-20] MEDS: IPRATROPIUM/ALBUTEROL SULFATE 3 ML AMPUL.NEB IH SCH ×3 (08:14→20:27)
--- NOTE | 2018-11-20 08:27 | XRay Report ---
CHEST 1 VIEW INDICATION: follow up respiratory failure. COMPARISON: 11/19/2018 at 0754 hours FINDINGS: Support devices: None. Heart: Heart size remains within normal limits. The aorta is mildly ectatic but well defined. Lungs/Pleura: No acute air space or interstitial disease. Subtle opacity at the right lung base consi stent with segmental atelectasis has resolved. Additional findings: None. IMPRESSION: Unremarkable AP chest. Signer Name: Carlos A Ray Jr, MD Signed: 11/20/2018 8:22 AM Workstation Name: [id number]
[2018-11-20] MEDS: FAMOTIDINE 20 MG TAB PO SCH ×2 (10:36→22:55)
[2018-11-20] MEDS: ENOXAPARIN 40 MG/0.4 ML INJ SUB-Q SCH ×2 (10:36→10:42)
[2018-11-20] MEDS: MULTIVITAMINS ,THERAPEUTIC TAB PO SCH (10:37)
[2018-11-20] MEDS: QUEtiapine 200 MG TAB PO SCH ×2 (10:37→22:55)
[2018-11-20] MEDS: FOLIC ACID 1 MG TAB PO SCH (10:37)
[2018-11-20] MEDS: predniSONE 10 MG TAB PO SCH (10:37)
[2018-11-20] MEDS: THIAMINE 100 MG TAB PO SCH (10:37)
--- NOTE | 2018-11-20 13:04 | Progress Note ---
Assessment and Plan Patient alert today. No complaints of chest pain, sob, or cough. Patient is on room air. O2 saturation 100%. Patient afebrile. - Patient Problems (1) Acute respiratory failure with hypoxia Current Visit: Yes Status: Acute Plan to address problem: Improved Patient resting on room air. (2) EtOH dependence Current Visit: Yes Status: Chronic Plan to address problem: Management as per primary care. (3) HTN (hypertension) Current Visit: Yes Status: Chronic Qualifiers: Hypertension type: essential hypertension Qualified Code(s): I10 - Essential (primary) hypertension Plan to address problem: Management as per primary care. (4) Asthma attack Current Visit: Yes Status: Acute Plan to address problem: Patient improved. No wheezing or cough at this time. Continue prednisone 10mg Qd. Brovanna and Budesonide aerosol treatments Q12h Albuterol and atrovent treatments Q6h PRN for SOB Continue SubQ heparin. Continue Famotidine. Subjective Date of service: 11/20/18 Principal diagnosis: Ac. hypoxemic resp failure; Ac. asthma exacerbation; EtOH abuse; Dysphagia Interval history: Patient alert today. No complaints of chest pain, sob, or cough. Patient is on room air. O2 saturation 100%. Patient afebrile. Objective Vital Signs - 12hr 11/20/18 11/20/18 11/20/18 05:18 06:16 06:27 Temperature 97.6 F Pulse Rate 59 L Pulse Rate [ Anterior Bilateral Throughout] Pulse Rate [ Bilateral Throughout] Respiratory 14 18 Rate Respiratory Rate [Anterior Bilateral Throughout] Respiratory Rate [Bilateral Throughout] Blood Pressure 126/83 Blood Pressure [Left] O2 Sat by Pulse 96 99 Oximetry 11/20/18 11/20/18 11/20/18 08:00 08:16 10:00 Temperature 97.9 F Pulse Rate 54 L Pulse Rate [ 50 L Anterior Bilateral Throughout] Pulse Rate [ 50 L Bilateral Throughout] Respiratory 20 Rate Respiratory 14 Rate [Anterior Bilateral Throughout] Respiratory 14 Rate [Bilateral Throughout] Blood Pressure Blood Pressure 139/93 [Left] O2 Sat by Pulse 98 100 Oximetry 11/20/18 11:55 Temperature 98.1 F Pulse Rate 50 L Pulse Rate [ Anterior Bilateral Throughout] Pulse Rate [ Bilateral Throughout] Respiratory 18 Rate Respiratory Rate [Anterior Bilateral Throughout] Respiratory Rate [Bilateral Throughout] Blood Pressure Blood Pressure 110/75 [Left] O2 Sat by Pulse 100 Oximetry Constitutional: no acute distress, alert Eyes: non-icteric ENT: oropharynx moist, other (extubated) Neck: supple, no lymphadenopathy, no JVD Effort: normal Ascultation: Bilateral: diminished breath sounds, rhonchi (scant) Percussion: Bilateral: not dull Cardiovascular: regular rate and rhythm Gastrointestinal: normoactive bowel sounds, soft, non-tender, non-distended Integumentary: normal Extremities: no cyanosis, no edema, pulses normal, no ischemia or petechiae Neurologic: non-focal exam (grossly), pupils equal and round, CN II-XII normal, motor strength normal and Psychiatric: other (unable to assess re: AMS) CBC and BMP: 11/18/18 04:31 11/18/18 04:31 ABG, PT/INR, D-dimer: ABG POC ABG pH 7.453 (7.35-7.45) H 11/17/18 02:38 POC ABG pCO2 40.0 (35-45) 11/17/18 02:38 POC ABG pO2 80 (80-105) 11/17/18 02:38 POC ABG HCO3 28.0 (22-26 mml/L) 11/17/18 02:38 POC ABG Total CO2 29 (23-27mmol/L) 11/17/18 02:38 POC ABG O2 Sat 96 11/17/18 02:38 Abnormal lab findings: Abnormal Labs 11/13/18 11/13/18 11/13/18 21:30 21:30 21:30 Lymph % (Auto) [place] % (Auto) Eos % (Auto) 8.2 H Baso % (Auto) 2.3 H Lymph # Eos # 0.7 H Baso # 0.2 H Seg Neutrophils % Seg Neuts % (Manual) Lymphocytes % (Manual) Lymphocytes # (Manual) POC ABG pH POC ABG pCO2 POC ABG pO2 Carbon Dioxide 16 L BUN 8 L Creatinine Glucose POC Glucose Lactic Acid Calcium Magnesium AST Total Creatine Kinase 646 H Albumin Plasma/Serum Alcohol 0.29 H 11/13/18 11/13/18 11/13/18 21:56 22:48 23:22 Lymph % (Auto) [place] % (Auto) Eos % (Auto) Baso % (Auto) Lymph # Eos # Baso # Seg Neutrophils % Seg Neuts % (Manual) Lymphocytes % (Manual) Lymphocytes # (Manual) POC ABG pH 7.312 L POC ABG pCO2 POC ABG pO2 > 400 H Carbon Dioxide BUN Creatinine Glucose POC Glucose Lactic Acid 3.70 H* 4.30 H* Calcium Magnesium AST Total Creatine Kinase Albumin Plasma/Serum Alcohol 11/13/18 11/14/18 11/14/18 23:51 00:51 01:49 Lymph % (Auto) [place] % (Auto) Eos % (Auto) Baso % (Auto) Lymph # Eos # Baso # Seg Neutrophils % Seg Neuts % (Manual) Lymphocytes % (Manual) Lymphocytes # (Manual) POC ABG pH POC ABG pCO2 POC ABG pO2 Carbon Dioxide BUN Creatinine Glucose POC Glucose Lactic Acid 4.10 H* 3.80 H* Calcium Magnesium AST Total Creatine Kinase 623 H Albumin Plasma/Serum Alcohol 11/14/18 11/14/18 11/14/18 01:49 03:41 03:41 Lymph % (Auto) [place] % (Auto) Eos % (Auto) Baso % (Auto) Lymph # Eos # Baso # Seg Neutrophils % Seg Neuts % (Manual) 96.0 H Lymphocytes % (Manual) 4.0 L Lymphocytes # (Manual) 0.3 L POC ABG pH POC ABG pCO2 POC ABG pO2 Carbon Dioxide 16 L BUN Creatinine Glucose 102 H POC Glucose Lactic Acid 3.40 H* Calcium 7.0 L D Magnesium AST Total Creatine Kinase Albumin Plasma/Serum Alcohol 11/14/18 11/14/18 11/14/18 03:41 05:08 05:12 Lymph % (Auto) [place] % (Auto) Eos % (Auto) Baso % (Auto) Lymph # Eos # Baso # Seg Neutrophils % Seg Neuts % (Manual) Lymphocytes % (Manual) Lymphocytes # (Manual) POC ABG pH 7.266 L POC ABG pCO2 POC ABG pO2 Carbon Dioxide BUN Creatinine Glucose POC Glucose Lactic Acid 3.30 H* 3.10 H* Calcium Magnesium AST Total Creatine Kinase Albumin Plasma/Serum Alcohol 11/14/18 11/14/18 11/14/18 07:08 07:31 15:47 Lymph % (Auto) [place] % (Auto) Eos % (Auto) Baso % (Auto) Lymph # Eos # Baso # Seg Neutrophils % Seg Neuts % (Manual) Lymphocytes % (Manual) Lymphocytes # (Manual) POC ABG pH POC ABG pCO2 POC ABG pO2 113 H Carbon Dioxide BUN Creatinine Glucose POC Glucose Lactic Acid 2.90 H* Calcium Magnesium AST Total Creatine Kinase 599 H Albumin Plasma/Serum Alcohol 11/15/18 11/15/18 11/15/18 03:48 04:33 13:20 Lymph % (Auto) [place] % (Auto) Eos % (Auto) Baso % (Auto) Lymph # Eos # Baso # Seg Neutrophils % Seg Neuts % (Manual) Lymphocytes % (Manual) Lymphocytes # (Manual) POC ABG pH 7.468 H POC ABG pCO2 33.5 L POC ABG pO2 75 L Carbon Dioxide BUN Creatinine Glucose 177 H POC Glucose 150 H Lactic Acid Calcium 7.9 L Magnesium AST Total Creatine Kinase Albumin Plasma/Serum Alcohol 11/16/18 11/16/18 11/16/18 04:54 15:07 18:00 Lymph % (Auto) [place] % (Auto) Eos % (Auto) Baso % (Auto) Lymph # Eos # Baso # Seg Neutrophils % Seg Neuts % (Manual) Lymphocytes % (Manual) Lymphocytes # (Manual) POC ABG pH POC ABG pCO2 56.4 H POC ABG pO2 Carbon Dioxide BUN Creatinine Glucose POC Glucose 137 H Lactic Acid Calcium Magnesium 3.10 H AST Total Creatine Kinase Albumin Plasma/Serum Alcohol 11/16/18 11/17/18 11/17/18 23:40 02:38 04:14 Lymph % (Auto) 5.9 L [place] % (Auto) 10.3 H Eos % (Auto) Baso % (Auto) Lymph # 0.4 L Eos # Baso # Seg Neutrophils % 83.7 H Seg Neuts % (Manual) Lymphocytes % (Manual) Lymphocytes # (Manual) POC ABG pH 7.453 H POC ABG pCO2 POC ABG pO2 Carbon Dioxide BUN Creatinine Glucose POC Glucose 152 H Lactic Acid Calcium Magnesium AST Total Creatine Kinase Albumin Plasma/Serum Alcohol 11/17/18 11/17/18 11/17/18 04:14 05:39 12:54 Lymph % (Auto) [place] % (Auto) Eos % (Auto) Baso % (Auto) Lymph # Eos # Baso # Seg Neutrophils % Seg Neuts % (Manual) Lymphocytes % (Manual) Lymphocytes # (Manual) POC ABG pH POC ABG pCO2 POC ABG pO2 Carbon Dioxide BUN Creatinine 0.7 L Glucose 147 H POC Glucose 138 H 114 H Lactic Acid Calcium 8.0 L Magnesium AST Total Creatine Kinase Albumin Plasma/Serum Alcohol 11/17/18 11/18/18 11/18/18 17:32 04:31 04:31 Lymph % (Auto) 9.2 L [place] % (Auto) 8.5 H Eos % (Auto) Baso % (Auto) Lymph # 0.7 L Eos # Baso # Seg Neutrophils % 82.1 H Seg Neuts % (Manual) Lymphocytes % (Manual) Lymphocytes # (Manual) POC ABG pH POC ABG pCO2 POC ABG pO2 Carbon Dioxide BUN Creatinine 0.7 L Glucose 125 H POC Glucose 130 H Lactic Acid Calcium Magnesium AST 67 H Total Creatine Kinase Albumin 3.7 L Plasma/Serum Alcohol 11/18/18 11/18/18 11/18/18 04:41 11:41 23:32 Lymph % (Auto) [place] % (Auto) Eos % (Auto) Baso % (Auto) Lymph # Eos # Baso # Seg Neutrophils % Seg Neuts % (Manual) Lymphocytes % (Manual) Lymphocytes # (Manual) POC ABG pH POC ABG pCO2 POC ABG pO2 Carbon Dioxide BUN Creatinine Glucose POC Glucose 116 H 131 H 124 H Lactic Acid Calcium Magnesium AST Total Creatine Kinase Albumin Plasma/Serum Alcohol 11/19/18 11/19/18 11/20/18 05:33 16:42 00:04 Lymph % (Auto) [place] % (Auto) Eos % (Auto) Baso % (Auto) Lymph # Eos # Baso # Seg Neutrophils % Seg Neuts % (Manual) Lymphocytes % (Manual) Lymphocytes # (Manual) POC ABG pH POC ABG pCO2 POC ABG pO2 Carbon Dioxide BUN Creatinine Glucose POC Glucose 115 H 124 H 124 H Lactic Acid Calcium Magnesium AST Total Creatine Kinase Albumin Plasma/Serum Alcohol 11/20/18 05:36 Lymph % (Auto) [place] % (Auto) Eos % (Auto) Baso % (Auto) Lymph # Eos # Baso # Seg Neutrophils % Seg Neuts % (Manual) Lymphocytes % (Manual) Lymphocytes # (Manual) POC ABG pH POC ABG pCO2 POC ABG pO2 Carbon Dioxide BUN Creatinine Glucose POC Glucose 122 H Lactic Acid Calcium Magnesium AST Total Creatine Kinase Albumin Plasma/Serum Alcohol Chest x-ray: report reviewed (Reported unremarkable AP chest.), image reviewed Allied health notes reviewed: nursing
--- NOTE | 2018-11-20 13:23 | Progress Note ---
Assessment and Plan Assessment and plan: (1) Acute respiratory failure with hypoxia Current Visit: Yes Status: Acute Plan to address problem: Self extubated, saturating well on room air (2) Status asthmaticus Current Visit: Yes Status: Acute Qualifiers: Asthma severity: severe Asthma persistence: persistent Qualified Code(s): J45.52 - Severe persistent asthma with status asthmaticus Plan to address problem: Cont neb treatments IV steroids Needs neb treatments and steroids (3) EtOH dependence Current Visit: Yes Status: Chronic Plan to address problem: Cont Ciwa protocol and IV fluids improving MH consult (4) Delirium tremens/ Acute Metabolic Encephalopathy secondary to ETOH withdrawal Current Visit: Yes Status: Acute Plan to address problem: Cont CIWA protocol Markedly improved (5) HTN (hypertension) Current Visit: Yes Status: Chronic Qualifiers: Hypertension type: essential hypertension Qualified Code(s): I10 - Essential (primary) hypertension Plan to address problem: Cont antihypertensives (6) Oropharyngeal Dysphagia Speech Eval, recommended regular diet (7) Lactic Acidosis Improving (8) Metabolic Acidosis Improving Bradycardia - Cardiology consult requested (9)DVT prophylaxis Current Visit: Yes Status: Acute Plan to address problem: On Lovenox and GI prophylaxis History Interval history: Patient was seen and evaluated this morning Patient was alert and oriented Patient wants to eat patient was bradycardic, but no symptoms Sitter at the bedside for safety Hospitalist Physical - Physical exam Narrative exam: Not in cardiopulmonary distress. The patient appeared well nourished and normally developed. Vital signs as documented. Head exam is unremarkable. No scleral icterus . Neck is without jugular venous distension, thyromegaly, or carotid bruits. Lungs are clear to auscultation. Cardiac exam reveals regular rate and Rhythm. First and second heart sounds normal. No murmurs, rubs or gallops. Abdominal exam reveals normal bowel sounds, no masses, no organomegaly and no aortic enlargement. Extremities are nonedematous and both femoral and pedal pulses are normal. CHAIN PEGGER: Alert and oriented 3. No focal weakness. - Constitutional Vitals: Temp Pulse Resp BP Pulse Ox 98.1 F 50 L 18 110/75 100 11/20/18 11:55 11/20/18 11:55 11/20/18 11:55 11/20/18 11:55 11/20/18 11:55 General appearance: Present: mild distress, well-nourished Results - Labs CBC & Chem 7: 11/18/18 04:31 11/18/18 04:31 Labs: Laboratory Last Values WBC 7.4 K/mm3 (4.5-11.0) 11/18/18 04:31 RBC 4.11 M/mm3 (3.65-5.03) 11/18/18 04:31 Hgb 12.3 gm/dl (11.8-15.2) 11/18/18 04:31 Hct 37.4 % (35.5-45.6) 11/18/18 04:31 MCV 91 fl (84-94) 11/18/18 04:31 MCH 30 pg (28-32) 11/18/18 04:31 MCHC 33 % (32-34) 11/18/18 04:31 RDW 14.2 % (13.2-15.2) 11/18/18 04:31 Plt Count 290 K/mm3 (140-440) 11/18/18 04:31 Lymph % (Auto) 9.2 % (13.4-35.0) L 11/18/18 04:31 [place] % (Auto) 8.5 % (0.0-7.3) H 11/18/18 04:31 Eos % (Auto) 0.0 % (0.0-4.3) 11/18/18 04:31 Baso % (Auto) 0.2 % (0.0-1.8) 11/18/18 04:31 Lymph # 0.7 K/mm3 (1.2-5.4) L 11/18/18 04:31 [place] # 0.6 K/mm3 (0.0-0.8) 11/18/18 04:31 Eos # 0.0 K/mm3 (0.0-0.4) 11/18/18 04:31 Baso # 0.0 K/mm3 (0.0-0.1) 11/18/18 04:31 Add Manual Diff Complete 11/14/18 03:41 Total Counted 100 11/14/18 03:41 Seg Neutrophils % 82.1 % (40.0-70.0) H 11/18/18 04:31 Seg Neuts % (Manual) 96.0 % (40.0-70.0) H 11/14/18 03:41 Band Neutrophils % 0 % 11/14/18 03:41 Lymphocytes % (Manual) 4.0 % (13.4-35.0) L 11/14/18 03:41 Reactive Lymphs % (Man) 0 % 11/14/18 03:41 Monocytes % (Manual) 0 % (0.0-7.3) 11/14/18 03:41 Eosinophils % (Manual) 0 % (0.0-4.3) 11/14/18 03:41 Basophils % (Manual) 0 % (0.0-1.8) 11/14/18 03:41 Metamyelocytes % 0 % 11/14/18 03:41 Myelocytes % 0 % 11/14/18 03:41 Promyelocytes % 0 % 11/14/18 03:41 Blast Cells % 0 % 11/14/18 03:41 Nucleated RBC % Not Reportable 11/14/18 03:41 Seg Neutrophils # 6.0 K/mm3 (1.8-7.7) 11/18/18 04:31 Seg Neutrophils # Man 7.6 K/mm3 (1.8-7.7) 11/14/18 03:41 Band Neutrophils # 0.0 K/mm3 11/14/18 03:41 Lymphocytes # (Manual) 0.3 K/mm3 (1.2-5.4) L 11/14/18 03:41 Abs React Lymphs (Man) 0.0 K/mm3 11/14/18 03:41 Monocytes # (Manual) 0.0 K/mm3 (0.0-0.8) 11/14/18 03:41 Eosinophils # (Manual) 0.0 K/mm3 (0.0-0.4) 11/14/18 03:41 Basophils # (Manual) 0.0 K/mm3 (0.0-0.1) 11/14/18 03:41 Metamyelocytes # 0.0 K/mm3 11/14/18 03:41 Myelocytes # 0.0 K/mm3 11/14/18 03:41 Promyelocytes # 0.0 K/mm3 11/14/18 03:41 Blast Cells # 0.0 K/mm3 11/14/18 03:41 WBC Morphology Not Reportable 11/14/18 03:41 Hypersegmented Neuts Not Reportable 11/14/18 03:41 Hyposegmented Neuts Not Reportable 11/14/18 03:41 Hypogranular Neuts Not Reportable 11/14/18 03:41 Smudge Cells Not Reportable 11/14/18 03:41 Toxic Granulation Not Reportable 11/14/18 03:41 Toxic Vacuolation Not Reportable 11/14/18 03:41 Dohle Bodies Not Reportable 11/14/18 03:41 Pelger-Huet Anomaly Not Reportable 11/14/18 03:41 Tyler Rods Not Reportable 11/14/18 03:41 Platelet Estimate Consistent w auto 11/14/18 03:41 Clumped Platelets Not Reportable 11/14/18 03:41 Plt Clumps, EDTA Not Reportable 11/14/18 03:41 Large Platelets Not Reportable 11/14/18 03:41 Giant Platelets Not Reportable 11/14/18 03:41 Platelet Satelliting Not Reportable 11/14/18 03:41 Plt Morphology Comment Not Reportable 11/14/18 03:41 RBC Morphology Normal 11/14/18 03:41 Dimorphic RBCs Not Reportable 11/14/18 03:41 Polychromasia Not Reportable 11/14/18 03:41 Hypochromasia Not Reportable 11/14/18 03:41 Poikilocytosis Not Reportable 11/14/18 03:41 Anisocytosis Not Reportable 11/14/18 03:41 Microcytosis Not Reportable 11/14/18 03:41 Macrocytosis Not Reportable 11/14/18 03:41 Spherocytes Not Reportable 11/14/18 03:41 Pappenheimer Bodies Not Reportable 11/14/18 03:41 Sickle Cells Not Reportable 11/14/18 03:41 Target Cells Not Reportable 11/14/18 03:41 Tear Drop Cells Not Reportable 11/14/18 03:41 Ovalocytes Not Reportable 11/14/18 03:41 Helmet Cells Not Reportable 11/14/18 03:41 Jameson-Vansant Bodies Not Reportable 11/14/18 03:41 [place] Rings Not Reportable 11/14/18 03:41 [place] Cells Not Reportable 11/14/18 03:41 Bite Cells Not Reportable 11/14/18 03:41 Crenated Cell Not Reportable 11/14/18 03:41 Elliptocytes Not Reportable 11/14/18 03:41 Acanthocytes (Spur) Not Reportable 11/14/18 03:41 Rouleaux Not Reportable 11/14/18 03:41 Hemoglobin C Crystals Not Reportable 11/14/18 03:41 Schistocytes Not Reportable 11/14/18 03:41 Malaria parasites Not Reportable 11/14/18 03:41 Neptali Bodies Not Reportable 11/14/18 03:41 Hem Pathologist Commnt No 11/14/18 03:41 POC ABG pH 7.453 (7.35-7.45) H 11/17/18 02:38 POC ABG pCO2 40.0 (35-45) 11/17/18 02:38 POC ABG pO2 80 (80-105) 11/17/18 02:38 POC ABG HCO3 28.0 (22-26 mml/L) 11/17/18 02:38 POC ABG Total CO2 29 (23-27mmol/L) 11/17/18 02:38 POC ABG O2 Sat 96 11/17/18 02:38 POC ABG Base Excess 4 ((-2) - (+3)mmol/L) 11/17/18 02:38 FiO2 40 % 11/17/18 02:38 Sodium 141 mmol/L (137-145) 11/18/18 04:31 Potassium 4.2 mmol/L (3.6-5.0) 11/18/18 04:31 Chloride 103.1 mmol/L (98-107) 11/18/18 04:31 Carbon Dioxide 26 mmol/L (22-30) 11/18/18 04:31 Anion Gap 16 mmol/L 11/18/18 04:31 BUN 13 mg/dL (9-20) 11/18/18 04:31 Creatinine 0.7 mg/dL (0.8-1.5) L 11/18/18 04:31 Estimated GFR > 60 ml/min 11/18/18 04:31 BUN/Creatinine Ratio 19 % 11/18/18 04:31 Glucose 125 mg/dL (75-100) H 11/18/18 04:31 POC Glucose 122 (70-105) H 11/20/18 05:36 Lactic Acid 1.60 mmol/L (0.7-2.0) 11/16/18 16:15 Calcium 8.5 mg/dL (8.4-10.2) 11/18/18 04:31 Phosphorus 3.10 mg/dL (2.5-4.5) 11/16/18 15:07 Magnesium 3.10 mg/dL (1.7-2.3) H 11/16/18 15:07 Total Bilirubin 0.60 mg/dL (0.1-1.2) 11/18/18 04:31 AST 67 units/L (5-40) H 11/18/18 04:31 ALT 35 units/L (7-56) 11/18/18 04:31 Alkaline Phosphatase 48 units/L (35-129) 11/18/18 04:31 Total Creatine Kinase 599 units/L (55-170) H 11/14/18 07:08 CK-MB (CK-2) 3.2 ng/mL (0.0-4.0) 11/14/18 07:08 CK-MB (CK-2) Rel Index 0.5 (0-4) 11/14/18 07:08 Troponin T < 0.010 ng/mL (0.00-0.029) 11/14/18 07:08 C-Reactive Protein 0.20 mg/dL (0.00-1.30) 11/14/18 Unknown Total Protein 6.8 g/dL (6.3-8.2) 11/18/18 04:31 Albumin 3.7 g/dL (3.9-5) L 11/18/18 04:31 Albumin/Globulin Ratio 1.2 % 11/18/18 04:31 Urine Color Straw (Yellow) 11/13/18 22:42 Urine Turbidity Clear (Clear) 11/13/18 22:42 Urine pH 5.0 (5.0-7.0) 11/13/18 22:42 Ur Specific [place] 1.009 (1.003-1.030) 11/13/18 22:42 Urine Protein <15 mg/dl mg/dL (Negative) 11/13/18 22:42 Urine Glucose (UA) Neg mg/dL (Negative) 11/13/18 22:42 Urine Ketones Tr mg/dL (Negative) 11/13/18 22:42 Urine Blood Sm (Negative) 11/13/18 22:42 Urine Nitrite Neg (Negative) 11/13/18 22:42 Urine Bilirubin Neg (Negative) 11/13/18 22:42 Urine Urobilinogen < 2.0 mg/dL (<2.0) 11/13/18 22:42 Ur Leukocyte Esterase Neg (Negative) 11/13/18 22:42 Urine WBC (Auto) 1.0 /HPF (0.0-6.0) 11/13/18 22:42 Urine RBC (Auto) 1.0 /HPF (0.0-6.0) 11/13/18 22:42 U Epithel Cells (Auto) < 1.0 /HPF (0-13.0) 11/13/18 22:42 Urine Opiates Screen Presumptive negative 11/13/18 22:42 Urine Methadone Screen Presumptive negative 11/13/18 22:42 Ur Barbiturates Screen Presumptive negative 11/13/18 22:42 Ur Phencyclidine Scrn Presumptive negative 11/13/18 22:42 Ur Amphetamines Screen Presumptive negative 11/13/18 22:42 U Benzodiazepines Scrn Presumptive negative 11/13/18 22:42 Urine Cocaine Screen Presumptive negative 11/13/18 22:42 U Marijuana (THC) Screen Presumptive negative 11/13/18 22:42 Drugs of Abuse Note Disclamer 11/13/18 22:42 Plasma/Serum Alcohol 0.29 % (0-0.07) H 11/13/18 21:30 Active Medications - Current Medications Current Medications: Generic Name Dose Route Start Last Admin Trade Name Freq PRN Reason Stop Dose Admin Acetaminophen 650 mg 11/14/18 01:17 11/20/18 06:16 Tylenol PO 650 mg Q4H PRN Administration Pain MILD(1-3)/Fever >100.5/HENRY Albuterol 2.5 mg 11/18/18 14:24 Proventil IH Q4HRT PRN Shortness Of Breath Albuterol/Ipratropium 1 ampul 11/17/18 16:00 11/20/18 08:14 Duoneb *Not For Prn Use* IH 1 ampul QIDRT DANIELLE Administration Lipase/Protease/Amylase 1 each 11/14/18 13:01 Pancreadarsh Gabriel 10,500 Unit FEEDTUBE PRN PRN For Clogged Feeding Tube Arformoterol Tartrate 15 mcg 11/14/18 20:00 11/20/18 08:14 Brovana Nebu IH 15 mcg Q12HRT DANIELLE Administration Budesonide 0.5 mg 11/14/18 20:00 11/20/18 08:14 Pulmicort IH 0.5 mg Q12HRT DANIELLE Administration Chlordiazepoxide HCl 25 mg 11/20/18 22:00 Librium PO 11/21/18 10:01 BID DANIELLE Clonidine HCl 0.3 mg 11/17/18 14:00 11/17/18 13:29 Catapres-Tts Patch TD 0.3 mg Cody DANIELLE Administration Enoxaparin Sodium 40 mg 11/14/18 10:00 11/20/18 10:42 Lovenox SUB-Q Not Given QDAY@1000 [facility] Famotidine 20 mg 11/18/18 10:00 11/20/18 10:36 Pepcid PO 20 mg BID DANIELLE Administration Folic Acid 1 mg 11/16/18 15:00 11/20/18 10:37 Folvite PO 1 mg QDAY DANIELLE Administration Haloperidol Lactate 5 mg 11/15/18 14:38 11/18/18 16:18 Haldol IV 5 mg Q1HR PRN Administration Unrespon. to mult. doses BZD's Hydralazine HCl 10 mg 11/17/18 12:52 11/18/18 09:19 Apresoline IV 10 mg Q3H PRN Administration Blood Pressure Hydrophilic Ointment 1 applic 11/14/18 02:24 Vaseline Lip Therapy TP Q2HR PRN Dry Lips Lorazepam 2 mg 11/15/18 14:38 11/18/18 11:01 Ativan IV 2 mg Q1HR PRN Administration CIWA-Ar 8-15 Lorazepam 4 mg 11/15/18 14:38 11/17/18 12:24 Ativan IV 4 mg Q1HR PRN Administration CIWA-Ar 16-25 Multi-Ingred Cream/Lotion/Oil/Oint 1 applic 11/14/18 02:24 Artificial Tears Ophth Oint OU Q4HR PRN Dry Eye(s) Multivitamins 1 each 11/16/18 15:00 11/20/18 10:37 Theragran Tab PO 1 each QDAY DANIELLE Administration Ondansetron HCl 4 mg 11/14/18 01:17 11/19/18 23:47 Zofran IV 4 mg Q8H PRN Administration Nausea And Vomiting Prednisone 10 mg 11/20/18 10:00 11/20/18 10:37 Deltasone PO 10 mg QDAY DANIELLE Administration Quetiapine Fumarate 200 mg 11/16/18 16:00 11/20/18 10:37 Seroquel PO 200 mg BID DANIELLE Administration Scopolamine 1 each 11/16/18 16:00 11/19/18 17:33 Transderm-Scop TD 1 each Q3D DANIELLE Administration Simple Syrup 15 ml 11/14/18 13:01 Simple Syrup FEEDTUBE PRN PRN Hypoglycemia Simple Syrup 30 ml 11/14/18 13:01 Simple Syrup FEEDTUBE PRN PRN Hypoglycemia Sodium Bicarbonate 325 mg 11/14/18 13:01 Sodium Bicarbonate FEEDTUBE PRN PRN For Clogged Feeding Tube Sodium Chloride 10 ml 11/14/18 10:00 11/20/18 10:37 Sodium Chloride Flush Syringe 10 Ml IV 10 ml BID DANIELLE Administration Sodium Chloride 10 ml 11/14/18 01:17 11/17/18 05:01 Sodium Chloride Flush Syringe 10 Ml IV 10 ml PRN PRN Administration LINE FLUSH Thiamine HCl 100 mg 11/16/18 15:00 11/20/18 10:37 Vitamin B-1 PO 100 mg QDAY DANIELLE Administration Nutrition/Malnutrition Assess - Dietary Evaluation Nutrition/Malnutrition Findings: Nutrition Notes Start: 11/14/18 12:25 Freq: Status: Active Protocol: Document 11/18/18 10:52 LM (Rec: 11/18/18 11:09 LM [email or web address]) Nutrition Notes Initial or Follow up Reassessment Current Diagnosis Hypertension,Respiratory Failure Other Pertinent Diagnosis Asthma, ETOH abuse, dysphagia Current Diet Vital AF 1.2 at 60 ml/hr Labs/Tests Cr 0.7 BG 125 Pertinent Medications Reviewed Height 5 ft 7 in Weight 64.5 kg [place] Body Weight (kg) 67.27 BMI 22.2 Weight change and time frame Wt change noted Subjective/Other Information Vital AF running at 20 ml/hr at time of visit. Pt is tolerating TF. Percent of energy/protein needs met: 32%/47% Burn Absent Trauma Absent Minimum of two criteria No #1 Nutrition Diagnosis Inadequate oral intake Diagnosis Progress(for reassessment Continues documentation) Is patient on ventilator? Yes Is Patient Ambulatory and/or Out of Bed No REE-([facility]-confined to bed) [phone] Calculation Used for Recommendations [place]-St Jeor Additional Notes Pro 77-129g (1.2-2.0g/kg) Fluid 1ml/kcal Nutrition Intervention Change Diet Order: Continue TF Nutrition Support: Vital AF 1.2 at 60 ml/hr Flush 100 ml q4h Kcal 1,728 Protein (gm) 108 Fluid (mL) 1,168 Goal #1 TF tolerance Goal #2 Meet at least 75% of energy and protein needs Anticipated Discharge Needs: Unable to determine Follow-Up By: 11/27/18 Additional Comments FU for TF tolerance
[2018-11-20] MEDS ORDERED: oxyCODONE /ACETAMINOPHEN 5-325MG TAB PO PRN (23:52)
--- NOTE | 2018-11-21 06:56 | Progress Note ---
Assessment and Plan Acute hypoxemic respiratory failure s/p mechanical ventilatory support. Acute asthma attack. History of alcohol abuse. Oropharyngeal dysphagia. Metabolic acidosis. Lactic acidosis. Elevated serum alcohols -Bronchodilators -Steroids, slow taper -VTE prophylaxis -Substance abuse counseling -Increase activity -Wean off supplemental oxygen for O2 sats>90% -Discharge planning -Outpatient pulmonary follow up Subjective Date of service: 11/21/18 Principal diagnosis: Ac. hypoxemic resp failure; Ac. asthma exacerbation; EtOH abuse; Dysphagia Interval history: Patient is seen today for: Acute hypoxemic respiratory failure; Acute asthma attack; History of alcohol abuse; Oropharyngeal dysphagia; Metabolic acidosis; Lactic acidosis; Elevated serum alcohol level Seen and examined at bedside; 24hour events reviewed; nursing and respiratory care staff consulted; no adverse overnight events reported to me; resting peacefully in bed; intermittent agitation; NO N/V/F/C Objective Vital Signs - 12hr 11/20/18 11/20/18 11/20/18 19:23 20:25 22:00 Temperature 98.0 F Pulse Rate 72 72 Pulse Rate [ 65 Anterior Bilateral Throughout] Pulse Rate [ 80 Apical] Pulse Rate [ 64 Bilateral Throughout] Respiratory 20 18 Rate Respiratory 16 Rate [Anterior Bilateral Throughout] Respiratory 14 Rate [Bilateral Throughout] Blood Pressure 121/86 O2 Sat by Pulse 99 Oximetry Constitutional: no acute distress, alert Eyes: non-icteric ENT: oropharynx moist, other (extubated) Neck: supple, no lymphadenopathy, no JVD Effort: normal Ascultation: Bilateral: diminished breath sounds, rhonchi (scant) Percussion: Bilateral: not dull Cardiovascular: regular rate and rhythm Gastrointestinal: normoactive bowel sounds, soft, non-tender, non-distended Integumentary: normal Extremities: no cyanosis, no edema, pulses normal, no ischemia or petechiae Neurologic: non-focal exam (grossly), pupils equal and round, CN II-XII normal, motor strength normal and Psychiatric: other (unable to assess re: AMS) CBC and BMP: 11/18/18 04:31 11/21/18 09:10 ABG, PT/INR, D-dimer: ABG POC ABG pH 7.453 (7.35-7.45) H 11/17/18 02:38 POC ABG pCO2 40.0 (35-45) 11/17/18 02:38 POC ABG pO2 80 (80-105) 11/17/18 02:38 POC ABG HCO3 28.0 (22-26 mml/L) 11/17/18 02:38 POC ABG Total CO2 29 (23-27mmol/L) 11/17/18 02:38 POC ABG O2 Sat 96 11/17/18 02:38 Abnormal lab findings: Abnormal Labs 11/13/18 11/13/18 11/13/18 21:30 21:30 21:30 Lymph % (Auto) [place] % (Auto) Eos % (Auto) 8.2 H Baso % (Auto) 2.3 H Lymph # Eos # 0.7 H Baso # 0.2 H Seg Neutrophils % Seg Neuts % (Manual) Lymphocytes % (Manual) Lymphocytes # (Manual) POC ABG pH POC ABG pCO2 POC ABG pO2 Carbon Dioxide 16 L BUN 8 L Creatinine Glucose POC Glucose Lactic Acid Calcium Magnesium AST Total Creatine Kinase 646 H Albumin Plasma/Serum Alcohol 0.29 H 11/13/18 11/13/18 11/13/18 21:56 22:48 23:22 Lymph % (Auto) [place] % (Auto) Eos % (Auto) Baso % (Auto) Lymph # Eos # Baso # Seg Neutrophils % Seg Neuts % (Manual) Lymphocytes % (Manual) Lymphocytes # (Manual) POC ABG pH 7.312 L POC ABG pCO2 POC ABG pO2 > 400 H Carbon Dioxide BUN Creatinine Glucose POC Glucose Lactic Acid 3.70 H* 4.30 H* Calcium Magnesium AST Total Creatine Kinase Albumin Plasma/Serum Alcohol 11/13/18 11/14/18 11/14/18 23:51 00:51 01:49 Lymph % (Auto) [place] % (Auto) Eos % (Auto) Baso % (Auto) Lymph # Eos # Baso # Seg Neutrophils % Seg Neuts % (Manual) Lymphocytes % (Manual) Lymphocytes # (Manual) POC ABG pH POC ABG pCO2 POC ABG pO2 Carbon Dioxide BUN Creatinine Glucose POC Glucose Lactic Acid 4.10 H* 3.80 H* Calcium Magnesium AST Total Creatine Kinase 623 H Albumin Plasma/Serum Alcohol 11/14/18 11/14/18 11/14/18 01:49 03:41 03:41 Lymph % (Auto) [place] % (Auto) Eos % (Auto) Baso % (Auto) Lymph # Eos # Baso # Seg Neutrophils % Seg Neuts % (Manual) 96.0 H Lymphocytes % (Manual) 4.0 L Lymphocytes # (Manual) 0.3 L POC ABG pH POC ABG pCO2 POC ABG pO2 Carbon Dioxide 16 L BUN Creatinine Glucose 102 H POC Glucose Lactic Acid 3.40 H* Calcium 7.0 L D Magnesium AST Total Creatine Kinase Albumin Plasma/Serum Alcohol 11/14/18 11/14/18 11/14/18 03:41 05:08 05:12 Lymph % (Auto) [place] % (Auto) Eos % (Auto) Baso % (Auto) Lymph # Eos # Baso # Seg Neutrophils % Seg Neuts % (Manual) Lymphocytes % (Manual) Lymphocytes # (Manual) POC ABG pH 7.266 L POC ABG pCO2 POC ABG pO2 Carbon Dioxide BUN Creatinine Glucose POC Glucose Lactic Acid 3.30 H* 3.10 H* Calcium Magnesium AST Total Creatine Kinase Albumin Plasma/Serum Alcohol 11/14/18 11/14/18 11/14/18 07:08 07:31 15:47 Lymph % (Auto) [place] % (Auto) Eos % (Auto) Baso % (Auto) Lymph # Eos # Baso # Seg Neutrophils % Seg Neuts % (Manual) Lymphocytes % (Manual) Lymphocytes # (Manual) POC ABG pH POC ABG pCO2 POC ABG pO2 113 H Carbon Dioxide BUN Creatinine Glucose POC Glucose Lactic Acid 2.90 H* Calcium Magnesium AST Total Creatine Kinase 599 H Albumin Plasma/Serum Alcohol 11/15/18 11/15/18 11/15/18 03:48 04:33 13:20 Lymph % (Auto) [place] % (Auto) Eos % (Auto) Baso % (Auto) Lymph # Eos # Baso # Seg Neutrophils % Seg Neuts % (Manual) Lymphocytes % (Manual) Lymphocytes # (Manual) POC ABG pH 7.468 H POC ABG pCO2 33.5 L POC ABG pO2 75 L Carbon Dioxide BUN Creatinine Glucose 177 H POC Glucose 150 H Lactic Acid Calcium 7.9 L Magnesium AST Total Creatine Kinase Albumin Plasma/Serum Alcohol 11/16/18 11/16/18 11/16/18 04:54 15:07 18:00 Lymph % (Auto) [place] % (Auto) Eos % (Auto) Baso % (Auto) Lymph # Eos # Baso # Seg Neutrophils % Seg Neuts % (Manual) Lymphocytes % (Manual) Lymphocytes # (Manual) POC ABG pH POC ABG pCO2 56.4 H POC ABG pO2 Carbon Dioxide BUN Creatinine Glucose POC Glucose 137 H Lactic Acid Calcium Magnesium 3.10 H AST Total Creatine Kinase Albumin Plasma/Serum Alcohol 11/16/18 11/17/18 11/17/18 23:40 02:38 04:14 Lymph % (Auto) 5.9 L [place] % (Auto) 10.3 H Eos % (Auto) Baso % (Auto) Lymph # 0.4 L Eos # Baso # Seg Neutrophils % 83.7 H Seg Neuts % (Manual) Lymphocytes % (Manual) Lymphocytes # (Manual) POC ABG pH 7.453 H POC ABG pCO2 POC ABG pO2 Carbon Dioxide BUN Creatinine Glucose POC Glucose 152 H Lactic Acid Calcium Magnesium AST Total Creatine Kinase Albumin Plasma/Serum Alcohol 11/17/18 11/17/18 11/17/18 04:14 05:39 12:54 Lymph % (Auto) [place] % (Auto) Eos % (Auto) Baso % (Auto) Lymph # Eos # Baso # Seg Neutrophils % Seg Neuts % (Manual) Lymphocytes % (Manual) Lymphocytes # (Manual) POC ABG pH POC ABG pCO2 POC ABG pO2 Carbon Dioxide BUN Creatinine 0.7 L Glucose 147 H POC Glucose 138 H 114 H Lactic Acid Calcium 8.0 L Magnesium AST Total Creatine Kinase Albumin Plasma/Serum Alcohol 11/17/18 11/18/18 11/18/18 17:32 04:31 04:31 Lymph % (Auto) 9.2 L [place] % (Auto) 8.5 H Eos % (Auto) Baso % (Auto) Lymph # 0.7 L Eos # Baso # Seg Neutrophils % 82.1 H Seg Neuts % (Manual) Lymphocytes % (Manual) Lymphocytes # (Manual) POC ABG pH POC ABG pCO2 POC ABG pO2 Carbon Dioxide BUN Creatinine 0.7 L Glucose 125 H POC Glucose 130 H Lactic Acid Calcium Magnesium AST 67 H Total Creatine Kinase Albumin 3.7 L Plasma/Serum Alcohol 11/18/18 11/18/18 11/18/18 04:41 11:41 23:32 Lymph % (Auto) [place] % (Auto) Eos % (Auto) Baso % (Auto) Lymph # Eos # Baso # Seg Neutrophils % Seg Neuts % (Manual) Lymphocytes % (Manual) Lymphocytes # (Manual) POC ABG pH POC ABG pCO2 POC ABG pO2 Carbon Dioxide BUN Creatinine Glucose POC Glucose 116 H 131 H 124 H Lactic Acid Calcium Magnesium AST Total Creatine Kinase Albumin Plasma/Serum Alcohol 11/19/18 11/19/18 11/20/18 05:33 16:42 00:04 Lymph % (Auto) [place] % (Auto) Eos % (Auto) Baso % (Auto) Lymph # Eos # Baso # Seg Neutrophils % Seg Neuts % (Manual) Lymphocytes % (Manual) Lymphocytes # (Manual) POC ABG pH POC ABG pCO2 POC ABG pO2 Carbon Dioxide BUN Creatinine Glucose POC Glucose 115 H 124 H 124 H Lactic Acid Calcium Magnesium AST Total Creatine Kinase Albumin Plasma/Serum Alcohol 11/20/18 11/20/18 05:36 23:58 Lymph % (Auto) [place] % (Auto) Eos % (Auto) Baso % (Auto) Lymph # Eos # Baso # Seg Neutrophils % Seg Neuts % (Manual) Lymphocytes % (Manual) Lymphocytes # (Manual) POC ABG pH POC ABG pCO2 POC ABG pO2 Carbon Dioxide BUN Creatinine Glucose POC Glucose 122 H 128 H Lactic Acid Calcium Magnesium AST Total Creatine Kinase Albumin Plasma/Serum Alcohol Allied health notes reviewed: nursing
[2018-11-21] MEDS: ARFORMOTEROL 15 MCG/2 ML NEBU IH SCH (08:08)
[2018-11-21] MEDS: BUDESONIDE 0.5 MG/2 ML NEBU IH SCH (08:08)
[2018-11-21] MEDS: IPRATROPIUM/ALBUTEROL SULFATE 3 ML AMPUL.NEB IH SCH ×2 (08:09→13:05)
[2018-11-21 09:39] LABS: BUN/Creatinine Ratio 16; Blood Urea Nitrogen 11 mg/dL (9-20); Calcium 8.5 mg/dL (8.4-10.2); Hemolysis Index 9
[2018-11-21] MEDS: FOLIC ACID 1 MG TAB PO SCH (10:02)
[2018-11-21] MEDS: MULTIVITAMINS ,THERAPEUTIC TAB PO SCH (10:02)
[2018-11-21] MEDS: predniSONE 10 MG TAB PO SCH (10:03)
[2018-11-21] MEDS: FAMOTIDINE 20 MG TAB PO SCH (10:03)
[2018-11-21] MEDS: chlordiazePOXIDE 25 MG CAP PO SCH (10:03)
[2018-11-21] MEDS: THIAMINE 100 MG TAB PO SCH (10:03)
[2018-11-21] MEDS: QUEtiapine 200 MG TAB PO SCH (10:03)
[2018-11-21] MEDS: ENOXAPARIN 40 MG/0.4 ML INJ SUB-Q SCH (10:03)
--- NOTE | 2018-11-21 10:52 | Discharge Summary ---
Providers - Providers Date of Admission: 11/14/18 01:17 Date of discharge: 11/21/18 Attending physician: XAVIER MCKINNEY MD 11/14/18 01:17 Consult to Physician [CONS] Routine Comment: Consulting Provider: WALTER SHEARER Physician Instructions: Reason For Exam: cc 11/14/18 02:25 Consult to Dietitian/Nutrition [CONS] Routine Physician Instructions: Reason For Exam: Reason for Consult: Evaluate nutritional intake 11/14/18 12:04 Consult to Dietitian/Nutrition [CONS] Routine Physician Instructions: Reason For Exam: Reason for Consult: Write/Manage Tube Feeding 11/19/18 09:28 Speech Therapy Evaluation and Treat [CONS] Routine Reason For Exam: swallow eval 11/19/18 09:49 Occupational Therapy Evaluate and Treat [CONS] Routine Comment: Reason For Exam: Debility Physical Therapy Evaluation and Treat [CONS] Routine Comment: Reason For Exam: Debility 11/20/18 13:19 Consult to Physician [CONS] Routine Comment: Consulting Provider: ISRA PALM Physician Instructions: Reason For Exam: bradycardia [facility] Reason for admission: acute hypoxic respiratory failure, asthma exacerbation, alcohol abuse Condition: Stable Pertinent studies: Chest x-ray Abdominal x-ray Hospital course: 43-year-old man with a history of hypertension, asthma comes emergency room with complaints of shortness of breath. He was placed on BiPAP, given steroids, breathing treatment and magnesium but his symptoms did not improve, he was intubated in the emergency room and admitted to ICU and was managed for acute hypoxic respiratory failure secondary to asthma exacerbation with IV steroids, nebulizer treatment, magnesium inpatient get better. Patient was extubated and transferred to the floor. Patient has history of alcohol abuse and patient was put on CIWA protocol. Patient has bradycardia occasional and no symptoms cardiology saw him and did thyroid function test patient had low TSH but normal T4. Patient will follow with his PCP. In the floor patient was saturating well on room air, evaluated by PTOT and recommended home health and discharged with home health. I have given a prescription for all his medications. Patient's questions and concerns were addressed at the bedside. She hasn't was hemodynamically stable at the time of discharge and doesn't need oxygen. Disposition: [id number] HOME UNDER HOME HLTH Time spent for discharge: 32 minutes - Discharge Diagnoses (1) Acute respiratory failure with hypoxia Status: Acute (2) Asthma attack Status: Acute (3) Delirium tremens Status: Acute (4) Hypoxia Status: Acute (5) Lactic acid acidosis Status: Acute (6) Respiratory acidosis Status: Acute (7) Respiratory distress Status: Acute (8) Respiratory failure Status: Acute Qualifiers: Chronicity: acute Respiratory failure complication: hypoxia Qualified Code(s): J96.01 - Acute respiratory failure with hypoxia (9) SOB (shortness of breath) Status: Acute (10) Status asthmaticus Status: Acute Qualifiers: Asthma severity: severe Asthma persistence: persistent Qualified Code(s): J45.52 - Severe persistent asthma with status asthmaticus (11) EtOH dependence Status: Chronic (12) HTN (hypertension) Status: Chronic Qualifiers: Hypertension type: essential hypertension Qualified Code(s): I10 - Essential (primary) hypertension Core Measure Documentation - Palliative Care Palliative Care/ Comfort Measures: Not Applicable - Core Measures Any of the following diagnoses?: none Exam - Physical Exam Narrative exam: Not in cardiopulmonary distress. The patient appeared well nourished and normally developed. Vital signs as documented. Head exam is unremarkable. No scleral icterus . Neck is without jugular venous distension, thyromegaly, or carotid bruits. Lungs are clear to auscultation. Cardiac exam reveals regular rate and Rhythm. First and second heart sounds normal. No murmurs, rubs or gallops. Abdominal exam reveals normal bowel sounds, no masses, no organomegaly and no aortic enlargement. Extremities are nonedematous and both femoral and pedal pulses are normal. [employer] OPERATIONS SPECIALIST: Alert and oriented 3. No focal weakness. - Constitutional Vitals: Temp Pulse Resp BP Pulse Ox 97.3 F L 55 L 18 129/96 98 11/21/18 07:57 11/21/18 08:35 11/21/18 08:09 11/21/18 07:57 11/21/18 07:57 Plan Activity: advance as tolerated Weight Bearing Status: Weight Bear as Tolerated Diet: regular Follow up with: YESIKA OBRIEN MD [Primary Care Provider] - 3-5 Days Prescriptions: Albuterol Sulfate [Albuterol 0.63% NEBS] 0.63 mg IH TID PRN #30 PRN Reason: Wheezing predniSONE [Deltasone] 10 mg PO QDAY #7 tablet Multivitamin Tab [Multiple Vitamin TAB (Theragran)] 1 each PO QDAY #30 tablet HYDROcodone/APAP 5-325 [[place] 5-325 mg TAB] 1 each PO Q4HR PRN #14 tablet PRN Reason: Pain Budesonide/Formoterol Fumarate [Symbicort 160-4.5 Mcg Inhaler] 10.2 gm IH DAILY #60 Thiamine [Vitamin B-1] 100 mg PO QDAY #30 tablet Sertraline [Zoloft] 25 mg PO DAILY #30 tablet
[2018-11-21 11:17] VITALS: BP 128/86
--- NOTE | 2018-11-21 12:51 | Consultation ---
History of Present Illness Consult date: 11/21/18 Consult reason: bradycardia History of present illness: This is a 43-year old male who is admitted with acute respiratory failure secondary to asthma exacerbation. A cardiac consultation has been requested for transient sinus bradycardia seen on telemetry. There has been no significant bradyarrhythmia. Patient has remained asymptomatic. Medication list he is on Clonidine patch 0.3 mg for hypertension management. Labs shows a TSH at 0.169. His presenting ECG is sinus rhythm, no acute ischemic changes. Medications and Allergies Allergies Allergy/AdvReac Type Severity Reaction Status Date / Time shellfish derived Allergy Swelling Verified 09/09/17 01:16 strawberry Allergy Swelling Verified 09/09/17 01:16 Home Medications Medication Instructions Recorded Confirmed Last Taken Type amLODIPine [Norvasc] 10 mg PO DAILY 09/09/17 11/18/18 09/08/17 History Albuterol Sulfate [Albuterol 0.63% 0.63 mg IH TID PRN #30 11/21/18 Unknown Rx NEBS] Budesonide/Formoterol Fumarate 10.2 gm IH DAILY #60 11/21/18 Unknown Rx [Symbicort 160-4.5 Mcg Inhaler] HYDROcodone/APAP 5-325 [[place] 1 each PO Q4HR PRN #14 tablet 11/21/18 Unknown Rx 5-325 mg TAB] Multivitamin Tab [Multiple Vitamin 1 each PO QDAY #30 tablet 11/21/18 Unknown Rx TAB (Theragran)] Sertraline [Zoloft] 25 mg PO DAILY #30 tablet 11/21/18 Unknown Rx Thiamine [Vitamin B-1] 100 mg PO QDAY #30 tablet 11/21/18 Unknown Rx predniSONE [Deltasone] 10 mg PO QDAY #7 tablet 11/21/18 Unknown Rx Active Meds: Active Medications Acetaminophen (Tylenol) 650 mg PO Q4H PRN PRN Reason: Pain MILD(1-3)/Fever >100.5/HENRY Last Admin: 11/20/18 23:31 Dose: 650 mg Documented by: Albuterol (Proventil) 2.5 mg IH Q4HRT PRN PRN Reason: Shortness Of Breath Albuterol/Ipratropium (Duoneb *Not For Prn Use*) 1 ampul IH TIDRT DANIELLE Last Admin: 11/21/18 08:09 Dose: Not Given Documented by: Lipase/Protease/Amylase (Jm Gabriel 10,500 Unit) 1 each FEEDTUBE PRN PRN PRN Reason: For Clogged Feeding Tube Arformoterol Tartrate (Brovana Nebu) 15 mcg IH Q12HRT REPLACED BY [facility] Last Admin: 11/21/18 08:08 Dose: 15 mcg Documented by: Budesonide (Pulmicort) 0.5 mg IH Q12HRT REPLACED BY [facility] Last Admin: 11/21/18 08:08 Dose: 0.5 mg Documented by: Clonidine HCl (Catapres-Tts Patch) 0.3 mg TD Cody REPLACED BY [facility] Last Admin: 11/17/18 13:29 Dose: 0.3 mg Documented by: Enoxaparin Sodium (Lovenox) 40 mg SUB-Q QDAY@1000 REPLACED BY [facility] Last Admin: 11/21/18 10:03 Dose: 40 mg Documented by: Famotidine (Pepcid) 20 mg PO BID REPLACED BY [facility] Last Admin: 11/21/18 10:03 Dose: 20 mg Documented by: Folic Acid (Folvite) 1 mg PO QDAY REPLACED BY [facility] Last Admin: 11/21/18 10:02 Dose: 1 mg Documented by: Haloperidol Lactate (Haldol) 5 mg IV Q1HR PRN PRN Reason: Unrespon. to mult. doses BZD's Last Admin: 11/18/18 16:18 Dose: 5 mg Documented by: Hydralazine HCl (Apresoline) 10 mg IV Q3H PRN PRN Reason: Blood Pressure Last Admin: 11/18/18 09:19 Dose: 10 mg Documented by: Hydrophilic Ointment (Vaseline Lip Therapy) 1 applic TP Q2HR PRN PRN Reason: Dry Lips Lorazepam (Ativan) 2 mg IV Q1HR PRN PRN Reason: Renetta 8-15 Last Admin: 11/18/18 11:01 Dose: 2 mg Documented by: Lorazepam (Ativan) 4 mg IV Q1HR PRN PRN Reason: Renetta 16-25 Last Admin: 11/17/18 12:24 Dose: 4 mg Documented by: Multi-Ingred Cream/Lotion/Oil/Oint (Artificial Tears Ophth Oint) 1 applic OU Q4HR PRN PRN Reason: Dry Eye(s) Multivitamins (Theragran Tab) 1 each PO QDAY REPLACED BY [facility] Last Admin: 11/21/18 10:02 Dose: 1 each Documented by: Ondansetron HCl (Zofran) 4 mg IV Q8H PRN PRN Reason: Nausea And Vomiting Last Admin: 11/19/18 23:47 Dose: 4 mg Documented by: Oxycodone/Acetaminophen (Percocet 5/325) 1 tab PO Q6H PRN PRN Reason: Pain, Moderate (4-6) Prednisone (Deltasone) 10 mg PO QDAY REPLACED BY [facility] Last Admin: 11/21/18 10:03 Dose: 10 mg Documented by: Quetiapine Fumarate (Seroquel) 200 mg PO BID REPLACED BY [facility] Last Admin: 11/21/18 10:03 Dose: 200 mg Documented by: Scopolamine (Transderm-Scop) 1 each TD Q3D REPLACED BY [facility] Last Admin: 11/19/18 17:33 Dose: 1 each Documented by: Simple Syrup (Simple Syrup) 15 ml FEEDTUBE PRN PRN PRN Reason: Hypoglycemia Simple Syrup (Simple Syrup) 30 ml FEEDTUBE PRN PRN PRN Reason: Hypoglycemia Sodium Bicarbonate (Sodium Bicarbonate) 325 mg FEEDTUBE PRN PRN PRN Reason: For Clogged Feeding Tube Sodium Chloride (Sodium Chloride Flush Syringe 10 Ml) 10 ml IV BID REPLACED BY [facility] Last Admin: 11/21/18 10:03 Dose: 10 ml Documented by: Sodium Chloride (Sodium Chloride Flush Syringe 10 Ml) 10 ml IV PRN PRN PRN Reason: LINE FLUSH Last Admin: 11/17/18 05:01 Dose: 10 ml Documented by: Thiamine HCl (Vitamin B-1) 100 mg PO QDAY REPLACED BY [facility] Last Admin: 11/21/18 10:03 Dose: 100 mg Documented by: Physical Examination Vital Signs BP Pulse Ox 175/102 99 11/13/18 17:31 11/13/18 17:31 General appearance: no acute distress HEENT: Positive: PERRL Neck: Positive: trachea midline Cardiac: Positive: Reg Rate and Rhythm Lungs: Positive: Normal Breath Sounds Neuro: Positive: Grossly Intact Extremities: Absent: edema Results 11/18/18 04:31 11/21/18 09:10 Comprehensive Metabolic Panel 11/21/18 Range/Units 09:10 Sodium 141 (137-145) mmol/L Potassium 3.7 (3.6-5.0) mmol/L Chloride 103.2 (98-107) mmol/L Carbon Dioxide 26 (22-30) mmol/L BUN 11 (9-20) mg/dL Creatinine 0.7 L (0.8-1.5) mg/dL Glucose 118 H (75-100) mg/dL Calcium 8.5 (8.4-10.2) mg/dL Assessment and Plan Acute respiratory failure secondary to asthma attack ETOH abuse Hypertension Transient sinus bradycardia TSH 0.169 We will obtain an echocardiogram for LVEF assessment.
== END 2018-11-21 13:00 | disposition home or self-care (01) | DRG 208 ==
LOC: ED 21:14 → CC1 11-14 01:17 → 4A 11-18 16:26
PROVIDERS: ADMIT Internal Medicine; ATTEND Internal Medicine
PROC: 5A1945Z Respiratory Ventilation, 24-96 Consecutive Hours (ICD-10-PCS; principal; 2018-11-13)
PROC: 0BH17EZ Insertion of Endotracheal Airway into Trachea, Via Natural or Artificial Opening (ICD-10-PCS; 2018-11-13)
PROC: 4A033R1 Measurement of Arterial Saturation, Peripheral, Percutaneous Approach (ICD-10-PCS; 2018-11-13)
DX: J96.01 Acute respiratory failure with hypoxia (principal); G93.41 Metabolic encephalopathy; E87.2 Acidosis; J45.52 Severe persistent asthma with status asthmaticus; F10.221 Alcohol dependence with intoxication delirium; I10 Essential (primary) hypertension; Y90.9 Presence of alcohol in blood, level not specified; R13.12 Dysphagia, oropharyngeal phase; R00.1 Bradycardia, unspecified; Z91.013 Allergy to seafood; Z91.018 Allergy to other foods; Z79.51 Long term (current) use of inhaled steroids; Z79.899 Other long term (current) drug therapy
CPT/HCPCS: 31500; 36415; 36600; 71045; 74018; 80048; 80053; 80307; 80320; 81001; 82140; 82550; 82553; 82803; 82962; 83735; 84100; 84439; 84443; 84484; 85007; 85025; 85027; 86140; 87040; 87070; 87205; 93005; 93010; 94002; 94003; 94640; 94644; 94760; G0378; G0480; J0360; J0456; J0692; J0696; J1630; J1650; J2060; J2250; J2405; J2704; J2920; J2930; J3010; J3411; J7030; J7050; J7070; J7512